=== PATIENT | female | born 1980 | race Caucasian/White ===

== ENCOUNTER 2024-11-23 16:21 | Emergency (ER) | payer MEDICAID, OTHER ==
[~2024-11-23] VITALS: Ht 172.7 cm; Wt 75.0 kg
[2024-11-23 17:34] LABS: Basophils # (auto) 0 10 ^3/uL (0-0.2); Basophils % (auto) 0.1 % (0.0-2.0); Eosinophils # (auto) 0 10 ^3/uL (0-0.8); Hematocrit 38.4 % (36.0-46.0); Hemoglobin 12.5 g/dL (12.2-16.2); Lymphocytes # (auto) 0.7 10 ^3/uL (0.4-5.4); Lymphocytes % (auto) 2.8 % (10.0-50.0); Mean Corpuscular Hemoglobin 30.9 pg (28.0-32.0); Mean Corpuscular Hgb Conc. 32.5 g/dL (32.0-36.0); Mean Corpuscular Volume 95.1 fL (80.0-100.0); Monocytes # (auto) 1.2 10 ^3/uL (0-1.3); Neutrophils # (auto) 21.7 10 ^3/uL (1.6-8.6); Neutrophils % (auto) 92.1 % (37.0-80.0); Platelet Count (auto) 281 10^3/uL (140-450); Red Blood Cells 4.04 10^6/uL (4.0-5.20); Red Cell Distribution Width 12.9 % (11.8-14.3); White Blood Cell 23.5 10^3/uL (4.4-10.8)
[2024-11-23 17:47] LABS: INR 1.02 (0.9-1.15); Partial Thromboplastin Time 29.2 SEC (24.5-34.5); Prothrombin Time 10.8 sec (9.3-11.8)
[2024-11-23 17:57] LABS: Albumin 4.2 g/dL (3.2-4.8); Alkaline Phosphatase 59 U/L (46-116); Anion Gap 10 (5-15); Aspartate Aminotransferase 19 U/L (13-40); BUN/Creatinine Ratio 13.8 (10.0-20.0); Bilirubin, Total 0.5 mg/dL (0.2-1.0); Carbon Dioxide 29 mmol/L (20-31); Chloride 102 mmol/L (98-107); Potassium 3.8 mmol/L (3.5-5.1); Sodium 141 mmol/L (136-145); Total Protein 6.5 g/dL (5.7-8.2)
[2024-11-23 17:58] LABS: Alanine Aminotransferase < 9 U/L (7-40); Blood Urea Nitrogen 57 mg/dL (9-23); Calcium 8.5 mg/dL (8.7-10.4); Glucose 198 mg/dL (74-106)
[2024-11-23] MEDS: SODIUM CHLORIDE 0.9% 500 ML IV ONE (18:22)
[2024-11-23] MEDS: ONDANSETRON HCL 4 MG/2 ML VIAL IV ONE (18:22)
[2024-11-23 18:25] VITALS: PULSE 91; RESP 19; O2SAT 100
--- NOTE | 2024-11-23 20:02 | ED.PDOC ---
History of Present Illness HPI Comments 44-year-old female who comes in with chief complaint of abdominal pain since last night. The patient states that the pain was somewhat epigastric and a 10/10. The patient states that now the pain is a 7/10. The patient denies any fever or diarrhea. The patient was having some vomiting. Patient has been ot her complaints at this time. Chief Complaint: Nausea/Vomiting Time Seen by MD: 16:29 Primary Care Provider: TONI Reviewed Notes: Nurses Notes, Senior Design Engineering Specialist Notes, Medications, Allergies (No allergies to medications) Allergies: Coded Allergies: NO KNOWN ALLERGIES (Unverified , 11/23/24) Home Meds Active Scripts Ondansetron Odt 4MG Tab (ZOFRAN PO) 4 Mg Tb, 4 MG PO BID for 5 Days, #10 TAB ODT TAB-DISSOLVE IN MOUTH, THEN SWALLOW Prov:GOKUL STEWART MD 11/23/24 Nitrofurantoin Monohydrate Mac (Macrobid) 100 Mg Cap, 100 MG PO BID for 7 Days, #14 CAP Prov:GOKUL STEWART MD 11/23/24 Information Source: Patient, Emergency Med Personnel Mode of Arrival: EMS Severity: Moderate Timing: Days Duration: Since onset Prehospital treatment: None Location: Epigastric pain Quality Cramping type pain Past Medical History PAST MEDICAL HISTORY: Denies Surgical History (Other): Eye surgery DITCH CLEANER History: No Pertinent DITCH CLEANER History Family History Family History: Family hx of DM, Family hx of HTN Social History Smoker: Secondhand Alcohol: Denies ETOH Use Drugs: Denies Drug Use Lives In: Home Constitutional: denies: chills, diaphoresis, fatigue, fever, malaise, sweats, weakness, others EENTM: denies: blurred vision, double vision, ear bleeding, ear discharge, ear drainage, ear pain, ear ringing, eye pain, eye redness, hearing loss, mouth pain, mouth swelling, nasal discharge, nose bleeding, nose congestion, nose pain, photophobia, tearing, throat pain, throat swelling, voice changes, others Respiratory: denies: cough, hemoptysis, orthopnea, SOB at rest, shortness of breath, SOB with excertion, stridor, wheezing, others Cardiovascular: denies: chest pain, dizzy spells, diaphoresis, Dyspnea on exertion, edema, irregular heart beat, left arm pain, lightheadedness, palpitations, PND, syncope, others Gastrointestinal: reports: abdominal pain; denies: abdomen distended, blood streaked bowels, constipated, diarrhea, dysphagia, difficulty swallowing, hematemesis, melena, nausea, poor appetite, poor fluid intake, rectal bleeding, rectal pain, vomiting, others Genitourinary: denies: abnormal vagina bleeding, burning, dyspareunia, dysuria, flank pain, frequency, hematuria, incontinence, pain, , vagina discharge, urgency, others Neurological: denies: dizziness, fainting, headache, left sided numbness, left sided weakness, numbness, paresthesia, pre-existing deficit, right sided numbness, right sided weakness, seizure, speech problems, tingling, tremors, weakness, others Musculoskeletal: denies: back pain, gout, joint pain, joint swelling, muscle pain, muscle stiffness, neck pain, others Integumetry: denies: bruises, change in color, change in hair/nails, dryness, laceration, lesions, lumps, rash, wounds, others Allergic/Immunocompromised: denies: Difficulty Healing, Frequent Infections, Hives, Itching, others Hematologic/Lymphatic: denies: anemia, blood clots, easy bleeding, easy bruising, swollen glands, others Endocrine: denies: excessive hunger, excessive sweating, excessive thirst, excessive urination, flushing, intolerance to cold, intolerance to heat, unexplained weight gain, unexplained weight loss, others Psychiatric: denies: anxiety, bipolar disorder, depression, hopeless, panic disorder, schizophrenia, sleepless, suicidal, others Physical Exam General Appearance: No Apparent Distress HEENT: Normal ENT Inspection, Pharynx Normal, TMs Normal Neck: Full Range of Motion, Non-Tender, Normal, Normal Inspection Respiratory: Chest Non-Tender, Lungs Clear, No Accessory Muscle Use, No Respira tory Distress, Normal Breath Sounds Cardiovascular: No Edema, No JVD, No Murmur, No Gallop, Normal Peripheral Pulses, Regular Rate/Rhythm Breast Exam: Deferred Gastrointestinal: Epigastric, No Organomegaly, No Pulsatile Mass, Normal Bowel Sounds, Soft, Tenderness Genitalia: Deferred Pelvic: Deferred Rectal: Deferred Extremities: No calf tenderness, Normal capillary refill, Normal inspection, Normal range of motion, Non-tender, No pedal edema Musculoskeletal : Apperance: Normal Neurologic: Alert, gamemaster II-XII nml as Tested, No Motor Deficits, Normal Affect, Normal Mood, No Sensory Deficits Cerebellar Function: Normal Reflexes: Normal Skin: Dry, Normal Color, Warm Lymphatic: No Adenopathy Was a procedure done? Was a procedure done?: No Differential Dx Considerations may include: Gastritis, generalized weakness, electrolyte imbalance X-Ray, Labs, Meds, VS Vital Signs Date Time Temp Pulse Resp B/P (MAP) Pulse Ox O2 Delivery O2 Flow Rate FiO2 11/23/24 18:25 97.8 91 19 163/93 (116) 100 97.8 11/23/24 18:25 91 19 100 Room Air* 0 21 11/23/24 16:43 87 11/23/24 16:43 98.8 102 16 109/69 (82) 96 Lab Test 11/23/24 20:11 11/23/24 17:06 Range/Units Urine Color Yellow Yellow Urine Clarity Clear Clear Urine pH 6.0 5.0-9.0 Urine Specific [place] 1.024 1.001-1.035 Urine Protein 3+ H Negative Urine Ketones Negative Negative Urine Blood 2+ H Negative /uL Urine Nitrite Negative Negative Urine Bilirubin Negative Negative Urine Urobilinogen Normal Negative mg/dL Urine Leukocyte Esterase Negative Negative /uL Urine RBC 5 0 - 4 /hpf Urine Microscopic WBC 7 H 0-5 /HPF Urine Squamous Epithelial Cells Few <5 /hpf Urine Bacteria None seen None Seen /hpf Urine Hyaline Casts Few 0 - 2 /lpf Urine Mucus Few None Seen Urine Glucose 1+ H Normal mg/dL White Blood Count 23.5 H 4.4-10.8 10^3/uL Red Blood Count 4.04 4.0-5.20 10^6/uL Hemoglobin 12.5 12.2-16.2 g/dL Hematocrit 38.4 36.0-46.0 % Mean Corpuscular Volume 95.1 80.0-100.0 fL Mean Corpuscular Hemoglobin 30.9 28.0-32.0 pg Mean Corpuscular Hemoglobin Concent 32.5 32.0-36.0 g/dL Red Cell Distribution Width 12.9 11.8-14.3 % Platelet Count 281 140-450 10^3/uL Mean Platelet Volume 8.6 6.9-10.8 fL Neutrophils (%) (Auto) 92.1 H 37.0-80.0 % Lymphocytes (%) (Auto) 2.8 L 10.0-50.0 % Monocytes (%) (Auto) 5.0 0.0-12.0 % Eosinophils (%) (Auto) 0.0 0.0-7.0 % Basophils (%) (Auto) 0.1 0.0-2.0 % Neutrophils # (Auto) 21.7 H 1.6-8.6 10 ^3/uL Lymphocytes # (Auto) 0.7 0.4-5.4 10 ^3/uL Monocytes # (Auto) 1.2 0-1.3 10 ^3/uL Eosinophils # (Auto) 0 0-0.8 10 ^3/uL Basophils # (Auto) 0 0-0.2 10 ^3/uL Nucleated Red Blood Cells 0.0 % Prothrombin Time 10.8 9.3-11.8 sec Prothrombin Time INR 1.02 0.9-1.15 Activated Partial Thromboplast Time 29.2 24.5-34.5 SEC Sodium Level 141 136-145 mmol/L Potassium Level 3.8 3.5-5.1 mmol/L Chloride Level 102 98-107 mmol/L Carbon Dioxide Level 29 20-31 mmol/L Anion Gap 10 5-15 Blood Urea Nitrogen 57 H 9-23 mg/dL Creatinine 4.12 H 0.550-1.02 mg/dL Glomerular Filtration Rate Calc 13 >90 mL/min BUN/Creatinine Ratio 13.8 10.0-20.0 Serum Glucose 198 H 74-106 mg/dL Calcium Level 8.5 L 8.7-10.4 mg/dL Total Bilirubin 0.5 0.2-1.0 mg/dL Aspartate Amino Transferase (AST) 19 13-40 U/L Alanine Aminotransferase (ALT) < 9 7-40 U/L Alkaline Phosphatase 59 46-116 U/L Total Protein 6.5 5.7-8.2 g/dL Albumin 4.2 3.2-4.8 g/dL Current Medications Medications (Trade) Dose Ordered Sig/Eileen Route Start Time Stop Time Status Last Admin Sodium Chloride 500 ml @ 500 mls/hr Q1H ONCE IV 11/23/24 16:45 11/23/24 17:44 DC 11/23/24 18:22 Ondansetron HCl (Zofran) 4 mg ONCE ONCE IV 11/23/24 18:30 11/23/24 18:31 DC 11/23/24 18:22 IV Hep-Lock was established The patient was given Zofran 4 mg IV push The patient was given normal saline at a 500 cc bolus The patient was CBC shows an elevated white blood cell count of 23.5 the patient was blood pressure The rest of the labs are within normal limits. Images Reviewed?: Images reviewed and evaluated by me Time of 1ST Reevaluation: 20:01 Reevaluation 1ST: Improved Patient Education/Counseling: Diagnosis, Treatment, Prognosis, Need For Follow Up Family Education/Counseling: No Family Present Departure 1 Departure Time of Disposition: 20:02 Impression: Primary Impression: UTI (urinary tract infection) Qualified Codes: N30.00 - Acute cystitis without hematuria Additional Impression: Vomiting Qualified Codes: R11.14 - Bilious vomiting Disposition: 01 HOME / SELF CARE / HOMELESS Condition: Fair e-Prescriptions Ondansetron Odt 4MG Tab (ZOFRAN PO) 4 Mg Tb 4 MG PO BID for 5 Days, #10 TAB ODT TAB-DISSOLVE IN MOUTH, THEN SWALLOW Prov: GOKUL STEWART MD 11/23/24 Nitrofurantoin Monohydrate Mac (Macrobid) 100 Mg Cap 100 MG PO BID for 7 Days, #14 CAP Prov: GOKUL STEWART MD 11/23/24 Discharged With: Self Critical Care Note Critical Care Time?: No Stability Stability form required: No Heart Score Heart Score: Heart Score Response (Comments) Value History N/A 0 EKG N/A 0 Age N/A 0 Risk Factors N/A 0 Troponin N/A 0 Total 0 GOKUL STEWART MD Nov 23, 2024 20:02
[2024-11-23 20:13] LABS: Urine Bacteria None Seen /hpf (None Seen)
[2024-11-23 20:39] LABS: Urine Blood 2+ /uL (Negative); Urine Clarity Clear (Clear); Urine Color Yellow (Yellow); Urine Hyaline Cast FEW /lpf (0 - 2); Urine Mucus FEW (None Seen); Urine Protein, UAD 3+ (Negative); Urine Specific Gravity 1.024 (1.001-1.035); Urine Squamous Epithelial Cell FEW /hpf (<5); Urine Urobilinogen Normal (Negative); Urine WBC 7 /HPF (0-5)
[2024-11-23] MEDS ORDERED: NITR-87 PO (20:43)
[2024-11-23] MEDS ORDERED: ZOFR4T PO (20:44)
[2024-11-23 21:46] VITALS: BP 144/83; PULSE 89; RESP 18; TEMP 98.3; O2SAT 100
--- NOTE | 2024-11-24 08:37 | ECG ---
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
== END 2024-11-23 21:53 | disposition home or self-care (01) ==
LOC: EDBD 16:21 → ER 16:21
DX: N39.0 Urinary tract infection, site not specified (principal); R11.10 Vomiting, unspecified; F17.200 Nicotine dependence, unspecified, uncomplicated; R19.7 Diarrhea, unspecified; R50.9 Fever, unspecified; Z79.899 Other long term (current) drug therapy; Z98.890 Other specified postprocedural states
CPT/HCPCS: 36415; 80053; 81001; 82947; 85025; 85610; 85730; 86850; 86900; 86901; 93005; 96374; 99284; J2405

== ENCOUNTER 2024-11-25 17:00 | Inpatient (IN) | payer MEDICAID ==
[~2024-11-25] VITALS: Ht 167.6 cm; Wt 72.0 kg
[~2024-11-25 17:00] MED LIST: NITR-87 PO; ZOFR4T PO
--- NOTE | 2024-11-25 17:26 | ED.PDOC ---
History of Present Illness HPI Comments 44F BIBA w/ no prior Hx associated to the c/c of CP. Pt was here yesterday on 11/24/24, here is the HPI from yesterday for ABD pain and currently has sternal CP with a pain of 8/10 and an increase w/ palpitation.Pt was given 4 of Zofran via IV en route.Family Hx of Dm and HTN. Denies chills, fever, N/V/D, SOB or other associated symptom's, modifiers, or recent injuries or sick contact at this time. Chief Complaint: Chest Pain Time Seen by MD: 17:05 Primary Care Provider: TONI Reviewed Notes: Nurses Notes, Roll Form Operator Notes, Medications, Allergies Allergies: Coded Allergies: NO KNOWN ALLERGIES (Unverified , 11/23/24) Home Meds Active Scripts Ondansetron Odt 4MG Tab (ZOFRAN PO) 4 Mg Tb, 4 MG PO BID for 5 Days, #10 TAB ODT TAB-DISSOLVE IN MOUTH, THEN SWALLOW Prov:GOKUL STEWART MD 11/23/24 Nitrofurantoin Monohydrate Mac (Macrobid) 100 Mg Cap, 100 MG PO BID for 7 Days, #14 CAP Prov:GOKUL STEWART MD 11/23/24 Information Source: Patient, Emergency Med Personnel Mode of Arrival: EMS Severity: Moderate Timing: Hours Duration: Since onset, Hours Prehospital treatment: None Past Medical History PAST MEDICAL HISTORY: Denies Surgical History: Denies all surgeries COREROOM FOUNDRY LABORER History: No Pertinent COREROOM FOUNDRY LABORER History Family History Family History: Reviewed,noncontributory to illness, Family hx of DM, Family hx of HTN Social History Smoker: Non-Smoker Alcohol: Denies ETOH Use Drugs: Denies Drug Use Lives In: Home Constitutional: denies: chills, diaphoresis, fatigue, fever, malaise, sweats, weakness, others EENTM: denies: blurred vision, double vision, ear bleeding, ear discharge, ear drainage, ear pain, ear ringing, eye pain, eye redness, hearing loss, mouth pain, mouth swelling, nasal discharge, nose bleeding, nose congestion, nose pain, photophobia, tearing, throat pain, throat swelling, voice changes, others Respiratory: denies: cough, hemoptysis, orthopnea, SOB at rest, shortness of breath, SOB with excertion, stridor, wheezing, others Cardiovascular: reports: chest pain; denies: dizzy spells, diaphoresis, Dyspnea on exertion, edema, irregular heart beat, left arm pain, lightheadedness, palpitations, PND, syncope, others Gastrointestinal: denies: abdomen distended, abdominal pain, blood streaked bowels, constipated, diarrhea, dysphagia, difficulty swallowing, hematemesis, melena, nausea, poor appetite, poor fluid intake, rectal bleeding, rectal pain, vomiting, others Genitourinary: denies: abnormal vagina bleeding, burning, dyspareunia, dysuria, flank pain, frequency, hematuria, incontinence, pain, , vagina discharge, urgency, others Neurological: denies: dizziness, fainting, headache, left sided numbness, left sided weakness, numbness, paresthesia, pre-existing deficit, right sided numbness, right sided weakness, seizure, speech problems, tingling, tremors, weakness, others Musculoskeletal: denies: back pain, gout, joint pain, joint swelling, muscle pain, muscle stiffness, neck pain, others Integumetry: denies: bruises, change in color, change in hair/nails, dryness, laceration, lesions, lumps, rash, wounds, others Allergic/Immunocompromised: denies: Difficulty Healing, Frequent Infections, Hives, Itching, others Hematologic/Lymphatic: denies: anemia, blood clots, easy bleeding, easy bruising, swollen glands, others Endocrine: denies: excessive hunger, excessive sweating, excessive thirst, excessive urination, flushing, intolerance to cold, intolerance to heat, unexplained weight gain, unexplained weight loss, others Psychiatric: denies: anxiety, bipolar disorder, depression, hopeless, panic disorder, schizophrenia, sleepless, suicidal, others All Other Systems: Reviewed and Negative Physical Exam General Appearance: Moderate Distress HEENT: Normal ENT Inspection, Pharynx Normal, TMs Normal Neck: Full Range of Motion, Non-Tender, Normal, Normal Inspection Respiratory: Chest Non-Tender, Lungs Clear, No Accessory Muscle Use, No Respiratory Distress, Normal Breath Sounds Cardiovascular: No Edema, No JVD, No Murmur, No Gallop, Normal Peripheral Pulses, Regular Rate/Rhythm Breast Exam: Deferred Gastrointestinal: No Organomegaly, Non Tender, No Pulsatile Mass, Normal Bowel Sounds, Soft Genitalia: Deferred Pelvic: Deferred Rectal: Deferred Extremities: No calf tenderness, Normal capillary refill, Normal inspection, Normal range of motion, Non-tender, No pedal edema Musculoskeletal : Apperance: Normal Neurologic: Alert, clay artisan II-XII nml as Tested, Motor Weakness, Normal Affect, Normal Mood, No Sensory Deficits Cerebellar Function: Normal Reflexes: Normal Skin: Dry, Normal Color, Warm Lymphatic: No Adenopathy Was a procedure done? Was a procedure done?: No EKG EKG : Pulse Rate (adult): 92 [place]: Normal Cardiac Rhythm: NSR Block: None Hypertrophy: None ST: Normal Differential Dx Considerations may include: PE, ACS, VT X-Ray, Labs, Meds, VS Vital Signs Date Time Temp Pulse Resp B/P (MAP) Pulse Ox O2 Delivery O2 Flow Rate FiO2 11/25/24 20:06 176/92 11/25/24 19:54 91 12 100 Nasal Cannula* 2 11/25/24 19:52 97.8 94 12 189/94 (125) 100 97.8 11/25/24 17:27 92 11/25/24 17:10 98.3 106 18 133/79 (97) 100 11/25/24 17:09 92 Lab Test 11/25/24 17:24 Range/Units White Blood Count 15.2 #H 4.4-10.8 10^3/uL Red Blood Count 4.34 4.0-5.20 10^6/uL Hemoglobin 14.0 12.2-16.2 g/dL Hematocrit 40.3 36.0-46.0 % Mean Corpuscular Volume 92.8 80.0-100.0 fL Mean Corpuscular Hemoglobin 32.3 H 28.0-32.0 pg Mean Corpuscular Hemoglobin Concent 34.8 32.0-36.0 g/dL Red Cell Distribution Width 12.4 11.8-14.3 % Platelet Count 339 140-450 10^3/uL Mean Platelet Volume 8.8 6.9-10.8 fL Neutrophils (%) (Auto) 85.4 H 37.0-80.0 % Lymphocytes (%) (Auto) 6.4 L 10.0-50.0 % Monocytes (%) (Auto) 8.0 0.0-12.0 % Eosinophils (%) (Auto) 0.1 0.0-7.0 % Basophils (%) (Auto) 0.1 0.0-2.0 % Neutrophils # (Auto) 13.0 H 1.6-8.6 10 ^3/uL Lymphocytes # (Auto) 1.0 0.4-5.4 10 ^3/uL Monocytes # (Auto) 1.2 0-1.3 10 ^3/uL Eosinophils # (Auto) 0 0-0.8 10 ^3/uL Basophils # (Auto) 0 0-0.2 10 ^3/uL Nucleated Red Blood Cells 0.0 % Prothrombin Time 10.9 9.3-11.8 sec Prothrombin Time INR 1.03 0.9-1.15 Activated Partial Thromboplast Time 27.1 24.5-34.5 SEC D-Dimer, Quantitative 8.50 H 0.0-0.49 mg/L FEU Sodium Level 133 #L 136-145 mmol/L Potassium Level 2.6 L 3.5-5.1 mmol/L Chloride Level 84 #L 98-107 mmol/L Carbon Dioxide Level 33 H 20-31 mmol/L Anion Gap 16 H 5-15 Blood Urea Nitrogen 48 H 9-23 mg/dL Creatinine 4.03 H 0.550-1.02 mg/dL Glomerular Filtration Rate Calc 13 >90 mL/min BUN/Creatinine Ratio 11.9 10.0-20.0 Serum Glucose 247 H 74-106 mg/dL Calcium Level 8.8 8.7-10.4 mg/dL Troponin I High Sensitivity 15 </=34 ng/L Current Medications Medications (Trade) Dose Ordered Sig/Eileen Route Start Time Stop Time Status Last Admin Aspirin 162 mg ONCE ONCE PO 11/25/24 17:15 11/25/24 17:16 DC 11/25/24 18:41 Pantoprazole Sodium (Protonix) 40 mg ONCE ONCE IV 11/25/24 18:15 11/25/24 18:16 DC 11/25/24 18:21 Prochlorperazine Edisylate (Compazine Inj) 10 mg ONCE ONCE IV 11/25/24 18:15 11/25/24 18:16 DC 11/25/24 18:21 Heparin Sodium (Porcine) 3,000 units ONCE ONCE IV 11/25/24 18:30 11/25/24 18:31 DC 11/25/24 18:42 Heparin Sodium/ Dextrose 250 ml @ 12 mls/hr [id number] IV 11/25/24 18:30 11/25/24 20:47 DC 11/25/24 18:56 Sodium Chloride 1,000 ml @ 60 mls/hr [id number] IV 11/25/24 19:15 11/25/24 20:00 Clonidine HCl (Catapres Tablet) 0.2 mg ONCE ONCE PO 11/25/24 20:15 11/25/24 20:16 DC 11/25/24 20:06 Potassium Chloride 100 ml @ 50 mls/hr ONCE ONCE IV 11/25/24 20:15 11/25/24 22:14 11/25/24 20:24 The patient is being taken over the CT scan to rule out PE. The patient was become hypoxic at least two episodes We are concerned that the patient does have a PE We did start the patient on heparin. We contacted the windows laptop technician who would be able to do a thrombectomy but at this time the risks versus the benefits are such that the patient would need this procedure Creatinine is 4.12 but we still need this CT scan of the chest to be done At this time the CT scan of the chest is negative for PE. The patient was given Protonix 40 mg IV push The patient was given Compazine 10 mg IV push for the nausea and vomiting The patient was somewhat hypertensive so was given clonidine We are still trying to workup the patient's elevated D-dimer The patient's anion gap is somewhat elevated at 16 The CO2 is elevated at 33 The patient was being admitted at this time Images Reviewed?: Images reviewed and evaluated by me Time of 1ST Reevaluation: 17:35 Reevaluation 1ST: Unchanged Patient Education/Counseling: Diagnosis, Treatment, Prognosis Family Education/Counseling: No Family Present Departure 1 Departure Time of Disposition: 20:59 Impression: Primary Impression: Acute respiratory failure Qualified Codes: J96.01 - Acute respiratory failure with hypoxia Additional Impressions: Acute chest pain Elevated d-dimer Hypertensive urgency Disposition: 09 ADMITTED INPATIENT Admit to: Tele Condition: Fair Critical Care Note Critical Care Time?: Yes (35 min-critical care time only) Stability Stability form required: Yes Unstable for transfer: Telemetry monitoring (Telemetry monitoring required), ED Physician Assesment (Clinical assesment) Heart Score Heart Score: Heart Score Response (Comments) Value History Slightly Suspicious 0 EKG Normal 0 Age <45 0 Risk Factors 1 or 2 risk factors 1 Troponin Normal limit 0 Total 1 I personally scribed for GOKUL STEWART MD ([facility]) on 11/25/24 at 17:26. Electronically submitted by Don Blankenship ([employer]). I personally scribed for GOKUL STEWART MD ([facility]) on 11/25/24 at 17:27. Electronically submitted by Don Blankenship ([employer]). GOKUL STEWART MD Nov 25, 2024 17:26
[2024-11-25] MEDS: PANTOPRAZOLE 40 MG/10 ML VIAL INJ IV ONE (18:21)
[2024-11-25] MEDS: PROCHLORPERAZINE EDISYLATE 5 MG/ML 2ML VIAL IV ONE (18:21)
[2024-11-25] MEDS: ASPirin 81 mg TAB PO ONE (18:41)
[2024-11-25] MEDS: HEPARIN SODIUM (PORCINE) 5000 UNITS/ML 1ML VIAL IV ONE (18:42)
[2024-11-25] MEDS: HEPARIN DRIP/D5W 100UNITS/ML 250 ML IV SCH (18:56)
[2024-11-25] MEDS ORDERED: ACETAMINOPHEN 325 MG TAB PO PRN (19:15)
--- NOTE | 2024-11-25 19:32 | DVH ---
EXAM: US BILAT LOWER DVT Clinical History: Elevated D-dimer with possible DVT Comparison: None Technique: Duplex Doppler evaluation of the deep venous systems of both lower extremities from the common femora l veins to the popliteal veins including color Doppler and spectral/pulsed waveform analysis was perf ormed. Findings: No visible intraluminal venous thrombus. No evidence of incompressibility or abnormal color or spectr al Doppler flow visualized in the deep bilateral lower extremity veins. Proximal greater saphenous ve ins are grossly unremarkable. Impression: 1. No sonographic evidence of deep venous thrombosis throughout the bilateral lower extremities from the popliteal veins to the common femoral veins.
[2024-11-25 19:49] LABS: Anion Gap 16 (5-15); Calcium 8.8 mg/dL (8.7-10.4)
[2024-11-25 19:52] LABS: Basophils # (auto) 0 10 ^3/uL (0-0.2); Basophils % (auto) 0.1 % (0.0-2.0); Eosinophils # (auto) 0 10 ^3/uL (0-0.8); Eosinophils % (auto) 0.1 % (0.0-7.0); Hematocrit 40.3 % (36.0-46.0); Lymphocytes % (auto) 6.4 % (10.0-50.0); Mean Corpuscular Hemoglobin 32.3 pg (28.0-32.0); Mean Corpuscular Hgb Conc. 34.8 g/dL (32.0-36.0); Mean Corpuscular Volume 92.8 fL (80.0-100.0); Monocytes # (auto) 1.2 10 ^3/uL (0-1.3); Neutrophils % (auto) 85.4 % (37.0-80.0); Platelet Count (auto) 339 10^3/uL (140-450); Red Blood Cells 4.34 10^6/uL (4.0-5.20); Red Cell Distribution Width 12.4 % (11.8-14.3); White Blood Cell 15.2 10^3/uL (4.4-10.8)
[2024-11-25 19:54] VITALS: PULSE 91; RESP 12; O2SAT 100
[2024-11-25 19:54] LABS: BUN/Creatinine Ratio 11.9 (10.0-20.0); INR 1.03 (0.9-1.15); Partial Thromboplastin Time 27.1 SEC (24.5-34.5); Prothrombin Time 10.9 sec (9.3-11.8)
[2024-11-25] MEDS: IOHEXOL 350 MG/ML 100ML IJ ONE (19:58)
[2024-11-25 19:59] LABS: Blood Urea Nitrogen 48 mg/dL (9-23); Carbon Dioxide 33 mmol/L (20-31); Chloride 84 mmol/L (98-107); Glucose 247 mg/dL (74-106); Potassium 2.6 mmol/L (3.5-5.1); Sodium 133 mmol/L (136-145)
[2024-11-25] MEDS: SODIUM CHLORIDE 0.9% 1,000 ML IV SCH (20:00)
--- NOTE | 2024-11-25 20:04 | ECG ---
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
--- NOTE | 2024-11-25 20:05 | DVH ---
Procedure: CT CT ANGIO CHEST CONTRAST Reason for study/Clinical History: Shortness a breath and chest pain Comparison Study: None available at time of dictation. Exam Date: 11/25/2024 07:37 PM Radiation Dose Information: CT Dose: CTDI volume is 22.02 mGy. Dose-length product is 817.52 mGy*cm Contrast: Type of contrast: Omnipaque 350 Contrast inject: 60 mL Contrast wasted:0 TECHNIQUE: After the uneventful administration of intravenous contrast intravenously, CT imaging was performed through the chest. Coronal and sagittal reformations were performed by the technologist. No 3D reconstructions or MIP images created. FINDINGS: Lower Neck: Visualized portions of the thyroid gland are unremarkable. Aorta and Vasculature: Normal caliber of thoracic aorta. Lymph Nodes: No enlarged intrathoracic lymph nodes. Mediastinum: Heart size is normal. There is no pericardial effusion. The esophagus is unremarkable. Lungs: No focal consolidation, pleural effusion or significant pneumothorax. No suspicious pulmonary nodule or mass. Musculoskeletal: No acute osseous abnormality. Upper abdomen: Limited portions of the upper abdomen are unremarkable. IMPRESSION: 1. No findings to suggest pulmonary emboli or pulmonary artery hypertension. 2. No pulmonary infiltrates or pleural effusions. 3. All CT scans at this medical facility are performed using dose modulation techniques as appropriate to a performed exam including the following: Automated exposure control was utilized; adjustment of t he MA and/or KV according to patient size; and use of iterative reconstruction technique. HS:Y
[2024-11-25] MEDS: cloNIDine HCL 0.1 MG TAB PO ONE (20:06)
[2024-11-25] MEDS: POTASSIUM CHL 20MEQ/100ML 100 ML IV ONE (20:24)
[2024-11-25] MEDS ORDERED: DEXTROSE (50%) 50ML SYRG IV PRN (21:30)
[2024-11-25] MEDS ORDERED: NITROGLYCERIN 0.4 MG SL TAB SL PRN (21:30)
[2024-11-25] MEDS ORDERED: MORPHINE SULFATE INJ 2 MG/ml SYRG IV PRN (21:30)
--- NOTE | 2024-11-25 21:30 | DVHHP2 ---
History of Present Illness Reason for Visit: Acute chest pain History of Present Illness The patient is a 44-year-old female with past medical history of hypertension, DM, and hyperlipidemia who presented to [facility] ED with complaint of chest pain. Patient reports symptoms progressively get worse with substernal chest pain, rating 8/10 numeric scale, associated palpitations, getting worse that prompted this visit. Patient was seen and evaluated in the ED, laboratory data shows WBC 15.2, platelets 339, sodium 133, potassium 2.6, BUN 48, creatinine 4.03, GFR 13, glucose 247, anion gap 16, troponin 15, D-dimer 8.50, blood pressure 133/79, heart rate 92, temperature 98.3 F, O2 saturation 99% on oxygen. CT Angiography showed no pulmonary emboli, pulmonary artery hypertension, no pulmonary infiltrates or pleural effusions. Please see medication orders section in the computer. On my assessment, patient denied chest pain at this moment, no headache, no dizziness, no nausea, no vomiting, no fever, no chills. No other modifying factor or other associated signs and symptoms noted. The patient was admitted to the hospital for further evaluation and medical management. Past Medical History HLD, DM, hypertension Past Surgical History Denies all surgeries Family History Reviewed, noncontributory to the management of this case. Past Social History The patient lives at home, denies smoking, alcohol or illicit drugs abuse. Review of Systems Constitutional: Yes: Weakness; No: Fever, Chills, Sweats, Malaise, Other Eyes: No: Pain, Vision change, Conjunctivae inflammation, Eyelid inflammation, Other, Redness ENT: No: Ear pain, Ear discharge, Nose pain, Nose discharge, Nose congestion, Mouth pain, Mouth swelling, Throat pain, Throat swelling, Other Respiratory: Shortness of breath; No: Cough, Dry, SOB with excertion, Wheezing, Hemoptysis, Pleuritic Pain, Sputum, Wheezing, Other Cardiovascular: Chest Pain; No: Palpitations, Orthopnea, Paroxysmal Noc. Dyspnea, Edema, Lt Headedness, Other Gastrointestinal: No: Nausea, Vomiting, Abdominal Pain, Diarrhea, Constipation, Melena, Hematochezia, Other Genitourinary: No Dysuria, No Frequency, No Incontinence, No Hematuria, No Retention, No Other Musculoskeletal: No: other, neck pain, shoulder pain, arm pain, back pain, hand pain, leg pain, foot pain Skin: No: Rash, Lesions, Jaundice, Bruising, Other Neurological: No: Weakness, Numbness, Incoordination, Change in speech, Confusion, Seizures, Other Allergies: Coded Allergies: NO KNOWN ALLERGIES (Unverified , 11/23/24) Medications Current Medications Medications Dose Ordered Sig/Eileen Route Start Time Stop Time Status Last Admin Dose Admin Pantoprazole Sodium 40 mg DAILY IV 11/26/24 10:00 Sodium Chloride 1,000 ml @ 60 mls/hr [id number] IV 11/25/24 19:15 11/25/24 20:00 60 MLS/HR Acetaminophen/ Hydrocodone Bitart 1 tab Q4HP PRN PO 11/25/24 19:15 Ondansetron HCl 4 mg Q4HP PRN IV 11/25/24 19:15 Docusate Sodium 100 mg BIDPRN PRN PO 11/25/24 19:15 Acetaminophen 650 mg Q6HP PRN PO 11/25/24 19:15 Aspirin 81 mg DAILY PO 11/26/24 10:00 UNV Ceftriaxone Sodium 50 ml @ 100 mls/hr DAILY@09 IV 11/26/24 09:00 UNV Hydralazine HCl 10 mg Q6HP PRN IV 11/25/24 21:30 UNV Diagnostic Test (Pha) 1 strip IQ4HR 11/26/24 00:00 UNV Insulin Human Regular IQ4HR SC 11/26/24 00:00 UNV Dextrose 50 ml UD PRN IV 11/25/24 21:30 UNV Exam Vital Signs Vital Signs Date Time Temp Pulse Resp B/P (MAP) Pulse Ox O2 Delivery O2 Flow Rate FiO2 11/25/24 21:10 111/73 11/25/24 20:30 95 22 100 11/25/24 19:54 Nasal Cannula* 2 11/25/24 19:52 97.8 97.8 General Appearance: Alert, Oriented X3, Cooperative, No acute distress HEENT: Atraumatic, PERRLA, EOMI, Mucous membr. moist/pink Respiratory: Clear to auscultation, Normal air movement Cardiovascular: Regular rate, Normal S1, Normal S2, No murmurs Abdominal: Normal bowel sounds, Soft, No tenderness, No hepatospenomegaly, No masses Extremities: No clubbing, No cyanosis, No edema, Normal pulses, No tenderness/swelling Skin: No rashes, No breakdown, No significant lesion Neuro: Normal speech, Normal tone, Sensation intact, Cranial nerves 3-12 NL, Reflexes 2+, Other (Generalized weakness) Psych/Mental Status: Mental status NL, Mood NL Labs/Xrays Labs Test 11/25/24 17:24 Range/Units White Blood Count 15.2 #H 4.4-10.8 10^3/uL Red Blood Count 4.34 4.0-5.20 10^6/uL Hemoglobin 14.0 12.2-16.2 g/dL Hematocrit 40.3 36.0-46.0 % Mean Corpuscular Volume 92.8 80.0-100.0 fL Mean Corpuscular Hemoglobin 32.3 H 28.0-32.0 pg Mean Corpuscular Hemoglobin Concent 34.8 32.0-36.0 g/dL Red Cell Distribution Width 12.4 11.8-14.3 % Platelet Count 339 140-450 10^3/uL Mean Platelet Volume 8.8 6.9-10.8 fL Neutrophils (%) (Auto) 85.4 H 37.0-80.0 % Lymphocytes (%) (Auto) 6.4 L 10.0-50.0 % Monocytes (%) (Auto) 8.0 0.0-12.0 % Eosinophils (%) (Auto) 0.1 0.0-7.0 % Basophils (%) (Auto) 0.1 0.0-2.0 % Neutrophils # (Auto) 13.0 H 1.6-8.6 10 ^3/uL Lymphocytes # (Auto) 1.0 0.4-5.4 10 ^3/uL Monocytes # (Auto) 1.2 0-1.3 10 ^3/uL Eosinophils # (Auto) 0 0-0.8 10 ^3/uL Basophils # (Auto) 0 0-0.2 10 ^3/uL Nucleated Red Blood Cells 0.0 % Prothrombin Time 10.9 9.3-11.8 sec Prothrombin Time INR 1.03 0.9-1.15 Activated Partial Thromboplast Time 27.1 24.5-34.5 SEC D-Dimer, Quantitative 8.50 H 0.0-0.49 mg/L FEU Sodium Level 133 #L 136-145 mmol/L Potassium Level 2.6 L 3.5-5.1 mmol/L Chloride Level 84 #L 98-107 mmol/L Carbon Dioxide Level 33 H 20-31 mmol/L Anion Gap 16 H 5-15 Blood Urea Nitrogen 48 H 9-23 mg/dL Creatinine 4.03 H 0.550-1.02 mg/dL Glomerular Filtration Rate Calc 13 >90 mL/min BUN/Creatinine Ratio 11.9 10.0-20.0 Serum Glucose 247 H 74-106 mg/dL Hemoglobin A1c 6.1 H <5.7 % A1C Calcium Level 8.8 8.7-10.4 mg/dL Troponin I High Sensitivity 15 </=34 ng/L PATIENT: NEIL LEA DACCT: [id number] UNIT: [id number] : 1980 LOC: ER ROOM / BED: / AGE / SEX: 44 / F ADM STATUS: REG ER SERVICE 55 ORDERING PHYSICIAN: GOKUL STEWART MD PROCEDURE(s): CTACH - CT ANGIO CHEST CONTRAST REASON: Shortness a breath and chest pain ORDER NUMBER(s): [id number], ACCESSION NUMBER(s): [id number] Procedure: CT CT ANGIO CHEST CONTRAST Reason for study/Clinical History: Shortness a breath and chest pain Comparison Study: None available at time of dictation. Exam Date: 11/25/2024 07:37 PM Radiation Dose Information: CT Dose: CTDI volume is 22.02 mGy. Dose-length product is 817.52 mGy*cm Contrast: Type of contrast: Omnipaque 350 Contrast inject: 60 mL Contrast wasted:0 TECHNIQUE: After the uneventful administration of intravenous contrast intravenously, CT imaging was performed through the chest. Coronal and sagittal reformations were performed by the technologist. No 3D reconstructions or MIP images created. FINDINGS: Lower Neck: Visualized portions of the thyroid gland are unremarkable. Aorta and Vasculature: Normal caliber of thoracic aorta. Lymph Nodes: No enlarged intrathoracic lymph nodes. Mediastinum: Heart size is normal. There is no pericardial effusion. The esophagus is unremarkable. Lungs: No focal consolidation, pleural effusion or significant pneumothorax. No suspicious pulmonary nodule or mass. Musculoskeletal: No acute osseous abnormality. Upper abdomen: Limited portions of the upper abdomen are unremarkable. IMPRESSION: 1. No findings to suggest pulmonary emboli or pulmonary artery hypertension. 2. No pulmonary infiltrates or pleural effusions. ORDERING PHYSICIAN: GOKUL STEWART MD PROCEDURE(s): BLDVT - BiLat Lower DVT REASON: Elevated D-dimer with possible DVT ORDER NUMBER(s): [id number], ACCESSION NUMBER(s): [id number] EXAM: US BILAT LOWER DVT Clinical History: Elevated D-dimer with possible DVT Comparison: None Technique: Duplex Doppler evaluation of the deep venous systems of both lower extremities from the common femoral veins to the popliteal veins including color Doppler and spectral/pulsed waveform analysis was performed. Findings: No visible intraluminal venous thrombus. No evidence of incompressibility or abnormal color or spectral Doppler flow visualized in the deep bilateral lower extremity veins. Proximal greater saphenous veins are grossly unremarkable. Impression: 1. No sonographic evidence of deep venous thrombosis throughout the bilateral lower extremities from the popliteal veins to the common femoral veins. ORDERING PHYSICIAN: SANFORD CHAVEZ MD PROCEDURE(s): KIDUS - KIDNEY REASON: KATE ORDER NUMBER(s): [id number], ACCESSION NUMBER(s): [id number] INDICATION: KATE TECHNIQUE: Multiple real-time sonographic images of the kidneys and bladder were obtained. COMPARISON: None FINDINGS: The right kidney measures 9.5 cm in length and the left kidney 9.8 cm. Both kidneys are normal in size, contour and cortical thickness but demonstrate mildly increased cortical echogenicity suggestive of medical renal disease. No hydronephrosis. No evidence of renal mass or calculus. Urinary bladder demonstrates a prevoid volume of 132 mL and appears unremarkable. Incidentally noted is a complex solid-cystic lesion in the right adnexal region measuring up to approximately 7 cm. No free fluid noted. IMPRESSION: Both kidneys are normal in size but demonstrate mildly increased cortical echogenicity suggestive of medical renal disease. No hydronephrosis. Incidentally noted is a complex solid-cystic lesion in right adnexal region measuring up to approximately 7 cm. Assessment/Plan Assessment/Plan Acute chest pain Leukocytosis, unspecified Electrolyte imbalance Elevated D-dimer Acute renal failure Generalized weakness Diabetes mellitus with hyperglycemia Plan 1. Admit to telemetry unit 2. Breathing treatment 3. Pain control management 4. IV antibiotic management 5. Management of fluids and electrolytes 6. Consultation for hospitalist 7. Diagnostic test CT Angiography 8. DVT prophylaxis-on aspirin 9. Repeat labs CBC, CMP in a.m. 10. Home medication reviewed and reconciled 11. Continue with current medical management 12. Treatment plan discussed with patient and RN. Patient verbalized understanding. Plan discussed with: Patient, Other (RN) My Orders Orders - JEREMY FARMER DNP Procedure Category Date Status Time * Cardiology Consult CONS 11/25/24 Transmitted 19:11 Pantoprazole PHA 11/26/24 In Process (Protonix) 10:00 Allergies SCOTTIE 11/25/24 In Process 19:11 Code Status CODE 11/25/24 Transmitted 19:11 Sodium Chloride 0.9% PHA 11/25/24 In Process 19:15 Oxygen Per Hour RT 11/25/24 Transmitted 19:11 Hydrocodone-Acet PHA 11/25/24 In Process 5/325mg Tab ([place] 19:15 Ondansetron Hcl PHA 11/25/24 In Process (Zofran) 19:15 Docusate Sodium PHA 11/25/24 In Process Capsule (Colace 19:15 Complete Blood Count LAB 11/26/24 Verified 04:00 Comprehensive LAB 11/26/24 Verified Metabolic Panel 04:00 Condition: Serious SCOTTIE 11/25/24 In Process 19:11 Acetaminophen Tablet PHA 11/25/24 In Process (Tylenol Tablet) 19:15 Bedrest With Bathroom SCOTTIE 11/25/24 In Process Privileg 19:11 Sequential SCOTTIE 11/25/24 In Process Compression Device Aspirin Tablet PHA 11/26/24 Logged 10:00 *Dr. Audie Larsen CONS 11/25/24 Transmitted -[place] 20:39 Blood Culture ANNA 11/25/24 Logged 20:46 Ceftriaxone 1gm/50ml PHA 11/26/24 Logged D5w (Rocephin) 09:00 Ceftriaxone 1gm/50ml PHA 11/25/24 Logged D5w (Rocephin) 21:00 Consistent DIET 11/26/24 Transmitted Carb(Ccho)Diabetes Breakfast Hydralazine Injection PHA 11/25/24 Logged (Apresoline Inject 21:30 Glucose Blood PHA 11/26/24 Logged (Accu-Chek Comfort 00:00 Insulin R (Human) PHA 11/26/24 Logged (Insulin R) 00:00 Dextrose 50% Syringe PHA 11/25/24 Logged 21:30 Problem List: (1) Acute chest pain (2) Acute renal failure (3) Leukocytosis, unspecified (4) Elevated d-dimer (5) Generalized weakness (6) Electrolyte imbalance (7) Diabetes mellitus with hyperglycemia Date of Service: Nov 25, 2024 Billing Provider: JEREMY FARMER DNP Common Visit Codes: [id number] INP/OBS CARE (HIGH) JEREMY FARMER DNP Nov 25, 2024 21:30
[2024-11-25] MEDS: cefTRIAXone 1GM/50ML D5W 50 ML IV ONE (22:05)
--- NOTE | 2024-11-25 23:42 | DVH ---
INDICATION: KATE TECHNIQUE: Multiple real-time sonographic images of the kidneys and bladder were obtained. COMPARISON: None FINDINGS: The right kidney measures 9.5 cm in length and the left kidney 9.8 cm. Both kidneys are normal in siz e, contour and cortical thickness but demonstrate mildly increased cortical echogenicity suggestive o f medical renal disease. No hydronephrosis. No evidence of renal mass or calculus. Urinary bladder demonstrates a prevoid volume of 132 mL and appears unremarkable. Incidentally noted is a complex solid-cystic lesion in the right adnexal region measuring up to appro ximately 7 cm. No free fluid noted. IMPRESSION: Both kidneys are normal in size but demonstrate mildly increased cortical echogenicity suggestive of medical renal disease. No hydronephrosis. Incidentally noted is a complex solid-cystic lesion in right adnexal region measuring up to approxim ately 7 cm.
[2024-11-26] VITALS (8 sets, daily range): BP systolic 121–131; BP diastolic 71–78; PULSE 63–80; RESP 14–18; TEMP 97.8–98.7; O2SAT 95–100
[2024-11-26] MEDS: ACCU-CHEK COMFORT CURVE STRIP VI SCH (00:10)
[2024-11-26] MEDS: InsuLIN REG 1unit/0.01ml Soln (100units/ml) SC SCH (00:13)
[2024-11-26 02:51] LABS: INR 1.08 (0.9-1.15); Partial Thromboplastin Time 30.1 SEC (24.5-34.5); Prothrombin Time 11.4 sec (9.3-11.8)
[2024-11-26 06:48] LABS: Basophils # (auto) 0 10 ^3/uL (0-0.2); Basophils % (auto) 0.2 % (0.0-2.0); Eosinophils # (auto) 0.1 10 ^3/uL (0-0.8); Eosinophils % (auto) 0.6 % (0.0-7.0); Hematocrit 37.4 % (36.0-46.0); Hemoglobin 12.6 g/dL (12.2-16.2); Lymphocytes # (auto) 1.3 10 ^3/uL (0.4-5.4); Lymphocytes % (auto) 12.5 % (10.0-50.0); Mean Corpuscular Hemoglobin 31.6 pg (28.0-32.0); Mean Corpuscular Hgb Conc. 33.7 g/dL (32.0-36.0); Mean Corpuscular Volume 93.9 fL (80.0-100.0); Monocytes # (auto) 1.2 10 ^3/uL (0-1.3); Monocytes % (auto) 11.3 % (0.0-12.0); Neutrophils % (auto) 75.4 % (37.0-80.0); Platelet Count (auto) 228 10^3/uL (140-450); Red Blood Cells 3.98 10^6/uL (4.0-5.20); Red Cell Distribution Width 12.5 % (11.8-14.3); White Blood Cell 10.6 10^3/uL (4.4-10.8)
[2024-11-26 07:10] LABS: Alanine Aminotransferase 18 U/L (7-40); Albumin 3.7 g/dL (3.2-4.8); Alkaline Phosphatase 49 U/L (46-116); Anion Gap 12 (5-15); Aspartate Aminotransferase 38 U/L (13-40); BUN/Creatinine Ratio 11.6 (10.0-20.0); Total Protein 6.2 g/dL (5.7-8.2)
[2024-11-26 07:11] LABS: Bilirubin, Total 0.3 mg/dL (0.2-1.0)
[2024-11-26 07:12] LABS: Blood Urea Nitrogen 55 mg/dL (9-23); Calcium 7.6 mg/dL (8.7-10.4); Carbon Dioxide 34 mmol/L (20-31); Chloride 89 mmol/L (98-107); Glucose 115 mg/dL (74-106); Potassium 2.8 mmol/L (3.5-5.1); Sodium 135 mmol/L (136-145)
[2024-11-26] MEDS: POTASSIUM CHL 20 Meq TABLET PO ONE (08:34)
[2024-11-26] MEDS: cefTRIAXone 1GM/50ML D5W 50 ML IV SCH (09:09)
[2024-11-26] MEDS: PANTOPRAZOLE 40 MG/10 ML VIAL INJ IV SCH (10:30)
[2024-11-26] MEDS: ASPirin 81 mg TAB PO SCH (10:30)
[2024-11-26] MEDS ORDERED: ASPI-325 (13:25)
[2024-11-26] MEDS ORDERED: SEMA4INJ (13:25)
[2024-11-26] MEDS ORDERED: LISI10TA34 PO (13:25)
[2024-11-26] MEDS ORDERED: SODI650T PO (13:25)
[2024-11-26] MEDS ORDERED: INSLANTI SC (13:25)
[2024-11-26] MEDS ORDERED: ATOR10TA52 (13:25)
--- NOTE | 2024-11-26 14:03 | DVHPN2 ---
Subjective The patient is seen and examined at bedside. The patient is still have chest pain. Reviewed: Care Plan, H&P, Labs, Medications, Previous Orders, Radiology Changes from previous H/P or p: No Changes Eyes: No Pain, No Vision change, No Conjunctivae inflammation, No Eyelid inflammation, No Other, No Redness ENT: No Ear pain, No Ear discharge, No Nose pain, No Nose discharge, No Nose congestion, No Mouth pain, No Mouth swelling, No Throat pain, No Throat swelling, No Other Cardiovascular: Chest Pain; No Palpitations, No Orthopnea, No Paroxysmal Noc. Dyspnea, No Edema, No Lt Headedness, No Other Respiratory: No Cough, No Dry; Shortness of breath; No SOB with excertion, No Wheezing, No Hemoptysis, No Pleuritic Pain, No Sputum, No Other Gastrointestinal: No Nausea, No Vomiting, No Abdominal Pain, No Diarrhea, No Constipation, No Melena, No Hematochezia, No Other Genitourinary: No Dysuria, No Frequency, No Incontinence, No Hematuria, No Retention, No Other Musculoskeletal: No other, No neck pain, No shoulder pain, No arm pain, No back pain, No hand pain, No leg pain, No foot pain Skin: No Rash, No Lesions, No Jaundice, No Bruising, No Other Objective Vitals Vital Signs Date Time Temp Pulse Resp B/P (MAP) Pulse Ox O2 Delivery O2 Flow Rate FiO2 11/26/24 13:09 98.0 79 17 131/77 (95) 95 98.0 11/26/24 10:41 Room Air* 0 21 Intake/Output Intake and Output 11/26/24 07:00 Intake Total 812 ml Balance 812 ml Intake IV Total 812 ml General Appearance: Alert, Oriented X3, Cooperative, No acute distress HEENT: Atraumatic, PERRLA, EOMI, Mucous membr. moist/pink Neck: Supple Lungs: Clear to auscultation, Normal air movement Cardiovascular: Regular rate, Normal S1, Normal S2, No murmurs, Gallops, Rubs Abdomen: Normal bowel sounds, Soft, No tenderness Neuro: Cranial nerves 3-12 NL Psych/Mental Status: Mental status NL Medications Current Medications Medications Dose Ordered Sig/Eileen Route Start Time Stop Time Status Last Admin Dose Admin Pantoprazole Sodium 40 mg DAILY IV 11/26/24 10:00 11/26/24 10:30 40 MG Sodium Chloride 1,000 ml @ 60 mls/hr [id number] IV 11/25/24 19:15 11/26/24 10:32 60 MLS/HR Acetaminophen/ Hydrocodone Bitart 1 tab Q4HP PRN PO 11/25/24 19:15 Ondansetron HCl 4 mg Q4HP PRN IV 11/25/24 19:15 Docusate Sodium 100 mg BIDPRN PRN PO 11/25/24 19:15 Acetaminophen 650 mg Q6HP PRN PO 11/25/24 19:15 Aspirin 81 mg DAILY PO 11/26/24 10:00 11/26/24 10:30 81 MG Ceftriaxone Sodium 50 ml @ 100 mls/hr DAILY@09 IV 11/26/24 09:00 11/26/24 09:09 100 MLS/HR Hydralazine HCl 10 mg Q6HP PRN IV 11/25/24 21:30 Diagnostic Test (Pha) 1 strip IQ4HR 11/26/24 00:00 11/26/24 11:51 1 STRIP Insulin Human Regular IQ4HR SC 11/26/24 00:00 11/26/24 11:52 2 UNITS Dextrose 50 ml UD PRN IV 11/25/24 21:30 Nitroglycerin 0.4 mg Q5MINP PRN SL 11/25/24 21:30 Morphine Sulfate 2 mg Q30M PRN IV 11/25/24 21:30 Laboratory Results Laboratory Tests 11/26/24 06:03 Chemistry Test 11/25/24 17:24 11/26/24 06:03 Calcium Level 8.8 mg/dL (8.7-10.4) 7.6 mg/dL (8.7-10.4) L Albumin 3.7 g/dL (3.2-4.8) Total Protein 6.2 g/dL (5.7-8.2) Coagulation Test 11/25/24 17:24 11/26/24 01:52 Prothrombin Time 10.9 sec (9.3-11.8) 11.4 sec (9.3-11.8) Prothrombin Time INR 1.03 (0.9-1.15) 1.08 (0.9-1.15) Activated Partial Thromboplast Time 27.1 SEC (24.5-34.5) 30.1 SEC (24.5-34.5) D-Dimer, Quantitative 8.50 mg/L FEU (0.0-0.49) H LFT Test 11/26/24 06:03 Alanine Aminotransferase (ALT) 18 U/L (7-40) Alkaline Phosphatase 49 U/L (46-116) Aspartate Amino Transferase (AST) 38 U/L (13-40) Total Bilirubin 0.3 mg/dL (0.2-1.0) HgA1c, TSH Test 11/25/24 17:24 Hemoglobin A1c 6.1 % A1C (<5.7) H Labs and/or images reviewed: Labs reviewed by me Assessment/Plan Assessment/Plan Acute chest pain Leukocytosis, unspecified Electrolyte imbalance Elevated D-dimer Acute renal failure Generalized weakness Diabetes mellitus with hyperglycemia Complex solid-cystic lesion in the right adnexal region measuring up to approximately 7 cm per US. Continuing current management Appreciate nephrology input. Continuing sliding scale insulin. Discussed with the patient regarding to a complex solid cystic lesion of the right adnexa region. The patient will need further workup on this lesion. 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 No further cardiology workup. This medical document was created using an electronic medical record system with [employer] direct computerized dictation system. Although this document has been carefully reviewed, there may still be some phonetic and typographical errors. These areas are purely typographical due to imperfections of the software programs, and do not reflect any compromise in the patient's medical care. Plan discussed with: Patient Date of Service: Nov 26, 2024 Billing Provider: RODRIGO QUINN MD Common Visit Codes: [id number] INP/OBS CARE(HIGH) RODRIGO QUINN MD Nov 26, 2024 14:03
--- NOTE | 2024-11-26 17:54 | DVHINCON2 ---
Date Seen: Nov 26, 2024 Referring Physician JAN David Reason for Consultation Chest pain History of Present Illness This is a 44-year-old female who presented the emergency room with a chief complaint of abdominal pain. The patient complains of mid abdominal pain associated with nausea and persistent bouts of vomiting. She also complains of chest pain after vomiting episodes, burning in nature, and nonradiating. States she was recently diagnosed with a UTI but unable to a take ABX therapy given persistent vomiting. She underwent a 12 lead electrocardiogram revealing a normal sinus rhythm. Baseline troponin level is negative. Significant medical history includes hypertension, [id number] diabetes mellitus, and dyslipidemia. Past Medical History Past medical history reviewed. No other significant than mentioned above. Past Surgical History Family History: Diabetes mellitus G8 FATHER FH: cancer G8 MOTHER Family History Family history reviewed. Social History Denies the use of illicit drugs, alcohol, or tobacco use. Allergies: Coded Allergies: NO KNOWN ALLERGIES (Unverified , 11/23/24) Home Meds Reported Medications Sodium Bicarbonate (Sodium Bicarbonate) 650 Mg Tab, 1 TAB PO BID 11/26/24 Aspirin (Aspirin Low Dose) 81 Mg Tab, 1 DAILY 11/26/24 Lisinopril (Lisinopril) 10 Mg Tab, 1 TAB PO 11/26/24 Atorvastatin Calcium (ATORVASTATIN CALCIUM) 10 Mg Tab, 1 DAILY 11/26/24 Semaglutide (Ozempic) 4 Mg/3 Ml Inj 11/26/24 Insulin Glargine (Lantus) 100 Unit/Ml Inj, SC 11/26/24 Home Meds Home medications reviewed. Current Medications Current Medications Medications (Trade) Dose Ordered Sig/Eileen Route PRN Reason Start Time Stop Time Status Last Admin Heparin Sodium/ Dextrose 250 ml @ 12 mls/hr [id number] IV 11/25/24 18:30 11/25/24 20:47 DC 11/25/24 18:56 Pantoprazole Sodium (Protonix) 40 mg DAILY IV 11/26/24 10:00 11/26/24 10:30 Sodium Chloride 1,000 ml @ 60 mls/hr [id number] IV 11/25/24 19:15 11/26/24 10:32 Acetaminophen/ Hydrocodone Bitart (Clarence 5/325MG Tab) 1 tab Q4HP PRN PO MODERATE PAIN (4-6 PAIN SCALE) 11/25/24 19:15 Ondansetron HCl (Zofran) 4 mg Q4HP PRN IV NAUSEA / VOMITING 11/25/24 19:15 Docusate Sodium (Colace Capsule) 100 mg BIDPRN PRN PO FOR CONSTIPATION 11/25/24 19:15 Acetaminophen (Tylenol Tablet) 650 mg Q6HP PRN PO PAIN SCALE 1-3 OR TEMP>100.4 11/25/24 19:15 Aspirin 81 mg DAILY PO 11/26/24 10:00 11/26/24 10:30 Ceftriaxone Sodium 50 ml @ 100 mls/hr DAILY@09 IV 11/26/24 09:00 11/26/24 09:09 Hydralazine HCl (Apresoline Injection) 10 mg Q6HP PRN IV SBP>150 11/25/24 21:30 Diagnostic Test (Pha) (Accu-Chek Comfort Curve T) 1 strip IQ4HR 11/26/24 00:00 11/26/24 16:00 Insulin Human Regular (InsuLIN R) IQ4HR SC 11/26/24 00:00 11/26/24 17:36 Dextrose 50 ml UD PRN IV Blood Sugar LESS THAN 60 11/25/24 21:30 Nitroglycerin (Ntrostat Sublingual) 0.4 mg Q5MINP PRN SL FOR CHEST PAIN 11/25/24 21:30 Morphine Sulfate 2 mg Q30M PRN IV FOR CHEST PAIN 11/25/24 21:30 Review of Systems Constitutional: No symptom reported Ears, Nose, & Throat: No symptom reported Eyes: No symptom reported Neurological: No symptoms reported Pulmonary/Respiratory: No symptom reported Cardiovascular: No symptom reported Gastrointestinal: Abdominal pain, N/V Genitourinary: No symptom reported Musculoskeletal: No symptom reported Skin: No symptom reported Psychiatric: No symptom reported Endocrine: No symptom reported Hemotologic/Lymphatic: No symptom reported Vital Signs Vital Signs Date Time Temp Pulse Resp B/P (MAP) Pulse Ox O2 Delivery O2 Flow Rate FiO2 11/26/24 17:00 98.5 71 18 125/71 (89) 99 98.5 11/26/24 13:53 Room Air* 0 21 Physical Exam General Appearance: Cooperative. Well developed. Well nourished. In no acute distress Head Exam: Normal inspection Neck Exam: Normal inspection. Non-tender. Normal alignment Pulmonary/Respiratory: Chest non-tender. Clear bilateral breath sounds Cardiovascular/Chest: Regular rate and rhythm. S1, S2. NSR. No murmurs. No JVD. Peripheral Pulses: 2+ Radial (R). 2+ Radial (L). 2+ Pedal (R). 2+ Pedal (L) Abdominal Exam: Normal bowel sounds. Soft. Somewhat tender Ankle Exam: Negative ankle edema Lower extremities: Negative lower extremity edema Neuro/Mental Status: A&O x4. Coherent Thoughts/Psych: Normal thought pattern. Appropriate mood and affect. Good judgement and insight Appearance: In no acute distress Skin Exam: Normal inspection. Normal color. Warm. Dry Labs/Diagnostic Data Labs Test 11/26/24 17:07 11/26/24 06:03 11/26/24 01:52 11/25/24 17:24 Range/Units POC Glucose 139 H 70-106 mg/dl White Blood Count 10.6 # 4.4-10.8 10^3/uL Red Blood Count 3.98 L 4.0-5.20 10^6/uL Hemoglobin 12.6 12.2-16.2 g/dL Hematocrit 37.4 36.0-46.0 % Mean Corpuscular Volume 93.9 80.0-100.0 fL Mean Corpuscular Hemoglobin 31.6 28.0-32.0 pg Mean Corpuscular Hemoglobin Concent 33.7 32.0-36.0 g/dL Red Cell Distribution Width 12.5 11.8-14.3 % Platelet Count 228 140-450 10^3/uL Mean Platelet Volume 8.6 6.9-10.8 fL Neutrophils (%) (Auto) 75.4 37.0-80.0 % Lymphocytes (%) (Auto) 12.5 10.0-50.0 % Monocytes (%) (Auto) 11.3 0.0-12.0 % Eosinophils (%) (Auto) 0.6 0.0-7.0 % Basophils (%) (Auto) 0.2 0.0-2.0 % Neutrophils # (Auto) 8.0 1.6-8.6 10 ^3/uL Lymphocytes # (Auto) 1.3 0.4-5.4 10 ^3/uL Monocytes # (Auto) 1.2 0-1.3 10 ^3/uL Eosinophils # (Auto) 0.1 0-0.8 10 ^3/uL Basophils # (Auto) 0 0-0.2 10 ^3/uL Nucleated Red Blood Cells 0.0 % Sodium Level 135 L 136-145 mmol/L Potassium Level 2.8 L 3.5-5.1 mmol/L Chloride Level 89 L 98-107 mmol/L Carbon Dioxide Level 34 H 20-31 mmol/L Anion Gap 12 5-15 Blood Urea Nitrogen 55 H 9-23 mg/dL Creatinine 4.73 H 0.550-1.02 mg/dL Glomerular Filtration Rate Calc 11 >90 mL/min BUN/Creatinine Ratio 11.6 10.0-20.0 Serum Glucose 115 H 74-106 mg/dL Calcium Level 7.6 L 8.7-10.4 mg/dL Total Bilirubin 0.3 0.2-1.0 mg/dL Aspartate Amino Transferase (AST) 38 13-40 U/L Alanine Aminotransferase (ALT) 18 7-40 U/L Alkaline Phosphatase 49 46-116 U/L Total Protein 6.2 5.7-8.2 g/dL Albumin 3.7 3.2-4.8 g/dL Prothrombin Time 11.4 9.3-11.8 sec Prothrombin Time INR 1.08 0.9-1.15 Activated Partial Thromboplast Time 30.1 24.5-34.5 SEC D-Dimer, Quantitative 8.50 H 0.0-0.49 mg/L FEU Hemoglobin A1c 6.1 H <5.7 % A1C Troponin I High Sensitivity 15 </=34 ng/L Assessment Noncardiac chest pain Rule out acute abdomen/UTI Insulin-dependent diabetes mellitus Hypertension Dyslipidemia Acute kidney injury Plan/Recommendation (Dr. Malloy) The patient presents with noncardiac chest pain and complains of abdominal pain and recent diagnosis of an UTI. Consider further workup for aforementioned complaints. Continue Nephrology recommendations. Replete electrolytes as necessary. There is no further cardiac workup indicated at this time. Kindly call if in need to re-consult. Thank you for allowing us to participate in this patient's care. This medical document was created using an electronic medical record system with voice recognition software and computerized dictation system. Although this d ocument has been carefully reviewed, there might still be some phonetic and typographical errors. Occasional wrong-word or ``sound-alike substitutions may have occurred due to the inherent limitations of voice recognition software. These areas are purely typographical due to imperfections of the software programs and do not reflect any compromise in the patient's medical care. Please read the chart carefully and recognize, using context, where these substitutions have occurred. Plan discussed with: Patient, Other NYHA Physical activity limitations: NA Date of Service: Nov 26, 2024 Billing Provider: RENAE ASHLEY Cardiology Common Codes: [id number] INP/OBS CARE (High) RENAE ASHLEY Nov 26, 2024 17:54
[2024-11-26 20:06] LABS: Urine Bacteria None Seen /hpf (None Seen)
[2024-11-26 20:19] LABS: Urine Blood 2+ /uL (Negative); Urine Clarity Turbid (Clear); Urine Color Light-Yellow (Yellow); Urine Protein, UAD 3+ (Negative); Urine Specific Gravity 1.025 (1.001-1.035); Urine Squamous Epithelial Cell MOD /hpf (<5); Urine Urobilinogen Normal (Negative); Urine WBC 27 /HPF (0-5); Urine pH 6.5 (5.0-9.0)
[2024-11-26] MEDS: HYDROcodone-ACET 5/325MG TAB PO PRN (21:00)
[2024-11-27] VITALS (8 sets, daily range): BP systolic 150–169; BP diastolic 66–86; PULSE 69–80; RESP 17–19; TEMP 98–98.4; O2SAT 96–99
[2024-11-27] MEDS: hydrALAZINE HCL 20 MG/ML VL IV PRN (04:27)
[2024-11-27] MEDS: ONDANSETRON HCL 4 MG/2 ML VIAL IV PRN (08:44)
[2024-11-27] MEDS: SODIUM CHLORIDE 0.9% 1,000 ML IV SCH (09:00)
--- NOTE | 2024-11-27 10:05 | DVHINCON2 ---
Date of service: Nov 27, [address] 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 Initial workup in the emergency room included a CT of the chest with contrast which was negative for PE. Nephrology has been consulted for the elevated creatinine. As per the history obtained from the patient she has CKD stage IIIB to CKD 4 secondary to diabetic nephropathy. Her GFR has been fluctuating. Last seen by the pmo analyst about a month ago at which time she was taken off wall Jardiance and metformin because of decreased GFR. Creatinine on presentation was 4. Underwent CT with contrast. Labs done yesterday showed that the creatinine had increased to 4.7 and insulin nephrology consultation. Patient continues to have epigastric discomfort. Also with intermittent nausea and vomiting. Denies any shortness of breath. Denies any edema to lower extremities. Urine output has been adequate. Past Medical History As stated above Past Surgical History None Family History: Diabetes mellitus G8 FATHER FH: cancer G8 MOTHER Family History Positive for diabetes and hypertension Social History No active history of smoking, alcohol or drug abuse Allergies: Coded Allergies: NO KNOWN ALLERGIES (Unverified , 11/23/24) Home Meds Reported Medications Sodium Bicarbonate (Sodium Bicarbonate) 650 Mg Tab, 1 TAB PO BID 11/26/24 Aspirin (Aspirin Low Dose) 81 Mg Tab, 1 DAILY 11/26/24 Lisinopril (Lisinopril) 10 Mg Tab, 1 TAB PO 11/26/24 Atorvastatin Calcium (ATORVASTATIN CALCIUM) 10 Mg Tab, 1 DAILY 11/26/24 Semaglutide (Ozempic) 4 Mg/3 Ml Inj 11/26/24 Insulin Glargine (Lantus) 100 Unit/Ml Inj, SC 11/26/24 Current Medications Current Medications Medications (Trade) Dose Ordered Sig/Eileen Route PRN Reason Start Time Stop Time Status Last Admin Pantoprazole Sodium (Protonix) 40 mg DAILY IV 11/26/24 10:00 11/27/24 08:44 Aspirin 81 mg DAILY PO 11/26/24 10:00 11/26/24 17:51 DC 11/26/24 10:30 Sodium Chloride 1,000 ml @ 100 mls/hr Q10H IV 11/27/24 09:00 Review of Systems 12 point review of systems negative except as stated in the HPI Vital Signs Vital Signs Date Time Temp Pulse Resp B/P (MAP) Pulse Ox O2 Delivery O2 Flow Rate FiO2 11/27/24 09:00 98.3 77 19 151/72 (98) 99 98.3 11/26/24 20:00 Room Air* 0 21 Physical Exam Alert awake oriented x3 HEENT: Normocephalic , no JVD Lungs: Bilateral clear to auscultation CVS: S1, S2 regular rate and rhythm Abdomen: Soft. No tenderness or guarding. 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 Extremities: No edema Labs/Diagnostic Data Labs Test 11/27/24 08:32 11/26/24 19:41 11/26/24 06:03 11/26/24 01:52 Range/Units POC Glucose 150 H 70-106 mg/dl Urine Color Light-yellow Yellow Urine Clarity Turbid H Clear Urine pH 6.5 5.0-9.0 Urine Specific [place] 1.025 1.001-1.035 Urine Protein 3+ H Negative Urine Ketones Negative Negative Urine Blood 2+ H Negative /uL Urine Nitrite Negative Negative Urine Bilirubin Negative Negative Urine Urobilinogen Normal Negative mg/dL Urine Leukocyte Esterase Trace Negative /uL Urine RBC 9 0 - 4 /hpf Urine Microscopic WBC 27 H 0-5 /HPF Urine Squamous Epithelial Cells Mod <5 /hpf Urine Bacteria None seen None Seen /hpf Urine Glucose 1+ H Normal mg/dL White Blood Count 10.6 # 4.4-10.8 10^3/uL Red Blood Count 3.98 L 4.0-5.20 10^6/uL Hemoglobin 12.6 12.2-16.2 g/dL Hematocrit 37.4 36.0-46.0 % Mean Corpuscular Volume 93.9 80.0-100.0 fL Mean Corpuscular Hemoglobin 31.6 28.0-32.0 pg Mean Corpuscular Hemoglobin Concent 33.7 32.0-36.0 g/dL Red Cell Distribution Width 12.5 11.8-14.3 % Platelet Count 228 140-450 10^3/uL Mean Platelet Volume 8.6 6.9-10.8 fL Neutrophils (%) (Auto) 75.4 37.0-80.0 % Lymphocytes (%) (Auto) 12.5 10.0-50.0 % Monocytes (%) (Auto) 11.3 0.0-12.0 % Eosinophils (%) (Auto) 0.6 0.0-7.0 % Basophils (%) (Auto) 0.2 0.0-2.0 % Neutrophils # (Auto) 8.0 1.6-8.6 10 ^3/uL Lymphocytes # (Auto) 1.3 0.4-5.4 10 ^3/uL Monocytes # (Auto) 1.2 0-1.3 10 ^3/uL Eosinophils # (Auto) 0.1 0-0.8 10 ^3/uL Basophils # (Auto) 0 0-0.2 10 ^3/uL Nucleated Red Blood Cells 0.0 % Sodium Level 135 L 136-145 mmol/L Potassium Level 2.8 L 3.5-5.1 mmol/L Chloride Level 89 L 98-107 mmol/L Carbon Dioxide Level 34 H 20-31 mmol/L Anion Gap 12 5-15 Blood Urea Nitrogen 55 H 9-23 mg/dL Creatinine 4.73 H 0.550-1.02 mg/dL Glomerular Filtration Rate Calc 11 >90 mL/min BUN/Creatinine Ratio 11.6 10.0-20.0 Serum Glucose 115 H 74-106 mg/dL Calcium Level 7.6 L 8.7-10.4 mg/dL Total Bilirubin 0.3 0.2-1.0 mg/dL Aspartate Amino Transferase (AST) 38 13-40 U/L Alanine Aminotransferase (ALT) 18 7-40 U/L Alkaline Phosphatase 49 46-116 U/L Total Protein 6.2 5.7-8.2 g/dL Albumin 3.7 3.2-4.8 g/dL Prothrombin Time 11.4 9.3-11.8 sec Prothrombin Time INR 1.08 0.9-1.15 Activated Partial Thromboplast Time 30.1 24.5-34.5 SEC Test 11/25/24 17:24 Range/Units D-Dimer, Quantitative 8.50 H 0.0-0.49 mg/L FEU Hemoglobin A1c 6.1 H <5.7 % A1C Troponin I High Sensitivity 15 </=34 ng/L Microbiology Date/Time Source Procedure Growth Status 11/25/24 21:39 Blood Blood Culture - Preliminary NO GROWTH AFTER 24 HOURS OF INCUBATION. 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
[2024-11-27 11:15] LABS: Anion Gap 13 (5-15); Carbon Dioxide 30 mmol/L (20-31)
[2024-11-27 11:20] LABS: BUN/Creatinine Ratio 12.3 (10.0-20.0)
[2024-11-27 11:26] LABS: Blood Urea Nitrogen 68 mg/dL (9-23); Calcium 7.6 mg/dL (8.7-10.4); Chloride 89 mmol/L (98-107); Glucose 204 mg/dL (74-106); Sodium 132 mmol/L (136-145)
--- NOTE | 2024-11-27 22:27 | DVHPN2 ---
Subjective The patient is seen and examined at bedside. No chest pain today. The patient being very tired. Reviewed: Care Plan, H&P, Labs, Medications, Previous Orders, Radiology Changes from previous H/P or p: No Changes Eyes: No Pain, No Vision change, No Conjunctivae inflammation, No Eyelid inflammation, No Other, No Redness ENT: No Ear pain, No Ear discharge, No Nose pain, No Nose discharge, No Nose congestion, No Mouth pain, No Mouth swelling, No Throat pain, No Throat swelling, No Other Cardiovascular: Chest Pain; No Palpitations, No Orthopnea, No Paroxysmal Noc. Dyspnea, No Edema, No Lt Headedness, No Other Respiratory: No Cough, No Dry; Shortness of breath; No SOB with excertion, No Wheezing, No Hemoptysis, No Pleuritic Pain, No Sputum, No Other Gastrointestinal: No Nausea, No Vomiting, No Abdominal Pain, No Diarrhea, No Constipation, No Melena, No Hematochezia, No Other Genitourinary: No Dysuria, No Frequency, No Incontinence, No Hematuria, No Retention, No Other Musculoskeletal: No other, No neck pain, No shoulder pain, No arm pain, No back pain, No hand pain, No leg pain, No foot pain Skin: No Rash, No Lesions, No Jaundice, No Bruising, No Other Objective Vitals Vital Signs Date Time Temp Pulse Resp B/P (MAP) Pulse Ox O2 Delivery O2 Flow Rate FiO2 11/27/24 21:00 98.0 80 17 169/84 (112) 99 98.0 11/27/24 08:00 Room Air* 0 21 Intake/Output Intake and Output 11/27/24 07:00 Intake Total 950 ml Balance 950 ml Intake Oral 780 ml IV Total 170 ml # Voids 2 General Appearance: Alert, Cooperative, No acute distress HEENT: Atraumatic, PERRLA, EOMI, Mucous membr. moist/pink Neck: Supple Lungs: Clear to auscultation, Normal air movement Cardiovascular: Regular rate, Normal S1, Normal S2, No murmurs, Gallops, Rubs Abdomen: Normal bowel sounds, Soft, No tenderness Neuro: Cranial nerves 3-12 NL Psych/Mental Status: Mental status NL Medications Current Medications Medications Dose Ordered Sig/Eileen Route Start Time Stop Time Status Last Admin Dose Admin Pantoprazole Sodium 40 mg DAILY IV 11/26/24 10:00 11/27/24 08:44 40 MG Acetaminophen/ Hydrocodone Bitart 1 tab Q4HP PRN PO 11/25/24 19:15 11/26/24 21:00 1 TAB Ondansetron HCl 4 mg Q4HP PRN IV 11/25/24 19:15 11/27/24 21:47 4 MG Docusate Sodium 100 mg BIDPRN PRN PO 11/25/24 19:15 Acetaminophen 650 mg Q6HP PRN PO 11/25/24 19:15 Ceftriaxone Sodium 50 ml @ 100 mls/hr DAILY@09 IV 11/26/24 09:00 11/27/24 08:44 100 MLS/HR Hydralazine HCl 10 mg Q6HP PRN IV 11/25/24 21:30 11/27/24 20:58 10 MG Diagnostic Test (Pha) 1 strip IQ4HR 11/26/24 00:00 11/27/24 20:58 1 STRIP Insulin Human Regular IQ4HR SC 11/26/24 00:00 11/27/24 21:05 3 UNITS Dextrose 50 ml UD PRN IV 11/25/24 21:30 Nitroglycerin 0.4 mg Q5MINP PRN SL 11/25/24 21:30 Morphine Sulfate 2 mg Q30M PRN IV 11/25/24 21:30 Sodium Chloride 1,000 ml @ 100 mls/hr Q10H IV 11/27/24 09:00 11/27/24 20:59 100 MLS/HR Laboratory Results Laboratory Tests 11/26/24 06:03 11/27/24 10:28 Chemistry Test 11/27/24 10:28 Calcium Level 7.6 mg/dL (8.7-10.4) L Urinalysis Test 11/26/24 19:41 Urine Color Light-yellow (Yellow) Urine Clarity Turbid (Clear) H Urine pH 6.5 (5.0-9.0) Urine Specific [place] 1.025 (1.001-1.035) Urine Protein 3+ (Negative) H Urine Ketones Negative (Negative) Urine Blood 2+ /uL (Negative) H Urine Nitrite Negative (Negative) Urine Bilirubin Negative (Negative) Urine Urobilinogen Normal mg/dL (Negative) Urine Leukocyte Esterase Trace /uL (Negative) Urine RBC 9 /hpf (0 - 4) Urine Microscopic WBC 27 /HPF (0-5) H Urine Squamous Epithelial Cells Mod /hpf (<5) Urine Bacteria None seen /hpf (None Seen) Urine Glucose 1+ mg/dL (Normal) H Microbiology Microbiology Date/Time Source Procedure Growth Status 11/26/24 19:41 Voided Urine Urine Culture - Preliminary Resulted 11/25/24 21:39 Blood Blood Culture - Preliminary NO GROWTH AFTER 48 HOURS OF INCUBATION. Resulted Labs and/or images reviewed: Labs reviewed by me Assessment/Plan Assessment/Plan Acute chest pain Leukocytosis, unspecified Electrolyte imbalance Elevated D-dimer Acute renal failure Generalized weakness Diabetes mellitus with hyperglycemia Complex solid-cystic lesion in the right adnexal region measuring up to approximately 7 cm per US. Continuing current management Appreciate nephrology input. Continuing sliding scale insulin. Discussed with the patient regarding to a complex solid cystic lesion of the right adnexa region. The patient will need further workup on this lesion. Appreciate senior corporate accountant's input. No further cardiology workup. This medical document was created using an electronic medical record system with [employer] direct computerized dictation system. Although this document has been carefully reviewed, there may still be some phonetic and typographical errors. These areas are purely typographical due to imperfections of the software programs, and do not reflect any compromise in the patient's medical care. Plan discussed with: Patient Date of Service: Nov 27, 2024 Billing Provider: RODRIGO QUINN MD Common Visit Codes: [id number] INP/OBS CARE(HIGH) RODRIGO QUINN MD Nov 27, 2024 22:27
[2024-11-27] MEDS: METOCLOPRAMIDE HCL 5MG/ml INJ 2ml VIAL IV ONE (23:29)
[2024-11-28] VITALS (8 sets, daily range): BP systolic 147–167; BP diastolic 69–83; PULSE 72–95; RESP 16–19; TEMP 98–98.9; O2SAT 95–100
[2024-11-28 06:30] LABS: Basophils # (auto) 0 10 ^3/uL (0-0.2); Eosinophils # (auto) 0.2 10 ^3/uL (0-0.8); Eosinophils % (auto) 1.3 % (0.0-7.0); Hematocrit 35.6 % (36.0-46.0); Hemoglobin 11.7 g/dL (12.2-16.2); Lymphocytes # (auto) 0.6 10 ^3/uL (0.4-5.4); Lymphocytes % (auto) 5.1 % (10.0-50.0); Mean Corpuscular Hemoglobin 31.1 pg (28.0-32.0); Mean Corpuscular Hgb Conc. 32.9 g/dL (32.0-36.0); Mean Corpuscular Volume 94.7 fL (80.0-100.0); Monocytes # (auto) 0.8 10 ^3/uL (0-1.3); Monocytes % (auto) 6.5 % (0.0-12.0); Neutrophils # (auto) 10.5 10 ^3/uL (1.6-8.6); Neutrophils % (auto) 87.1 % (37.0-80.0); Platelet Count (auto) 214 10^3/uL (140-450); Red Blood Cells 3.76 10^6/uL (4.0-5.20); Red Cell Distribution Width 12.4 % (11.8-14.3); White Blood Cell 12.1 10^3/uL (4.4-10.8)
[2024-11-28 07:01] LABS: Anion Gap 12 (5-15); Carbon Dioxide 26 mmol/L (20-31)
[2024-11-28 07:07] LABS: BUN/Creatinine Ratio 11.4 (10.0-20.0)
[2024-11-28 07:08] LABS: Blood Urea Nitrogen 57 mg/dL (9-23); Calcium 7.4 mg/dL (8.7-10.4); Chloride 94 mmol/L (98-107); Glucose 173 mg/dL (74-106); Sodium 132 mmol/L (136-145)
--- NOTE | 2024-11-28 15:13 | DVHPN2 ---
Subjective in bed resting, feeling well Changes from previous H/P or p: No Changes Eyes: No Pain, No Vision change, No Conjunctivae inflammation, No Eyelid inflammation, No Other, No Redness ENT: No Ear pain, No Ear discharge, No Nose pain, No Nose discharge, No Nose congestion, No Mouth pain, No Mouth swelling, No Throat pain, No Throat swelling, No Other Cardiovascular: Chest Pain; No Palpitations, No Orthopnea, No Paroxysmal Noc. Dyspnea, No Edema, No Lt Headedness, No Other Respiratory: No Cough, No Dry; Shortness of breath; No SOB with excertion, No Wheezing, No Hemoptysis, No Pleuritic Pain, No Sputum, No Other Gastrointestinal: No Nausea, No Vomiting, No Abdominal Pain, No Diarrhea, No Constipation, No Melena, No Hematochezia, No Other Genitourinary: No Dysuria, No Frequency, No Incontinence, No Hematuria, No Retention, No Other Musculoskeletal: No other, No neck pain, No shoulder pain, No arm pain, No back pain, No hand pain, No leg pain, No foot pain Skin: No Rash, No Lesions, No Jaundice, No Bruising, No Other Objective Vitals Vital Signs Date Time Temp Pulse Resp B/P (MAP) Pulse Ox O2 Delivery O2 Flow Rate FiO2 11/28/24 09:00 98.5 95 18 147/69 (95) 100 98.5 11/28/24 08:00 Room Air* 0 21 Intake/Output Intake and Output 11/28/24 07:00 Intake Total 4116 ml Output Total 2380 ml Balance 1736 ml Intake Oral 2316 ml IV Total 1800 ml Output Urine Total 2120 ml Emesis 260 ml General Appearance: Alert, Oriented X3 Lungs: Clear to auscultation Cardiovascular: Regular rate, Normal S1, Normal S2 Medications Current Medications Medications Dose Ordered Sig/Eileen Route Start Time Stop Time Status Last Admin Dose Admin Pantoprazole Sodium 40 mg DAILY IV 11/26/24 10:00 11/28/24 10:00 40 MG Acetaminophen/ Hydrocodone Bitart 1 tab Q4HP PRN PO 11/25/24 19:15 11/26/24 21:00 1 TAB Ondansetron HCl 4 mg Q4HP PRN IV 11/25/24 19:15 11/28/24 05:53 4 MG Docusate Sodium 100 mg BIDPRN PRN PO 11/25/24 19:15 Acetaminophen 650 mg Q6HP PRN PO 11/25/24 19:15 Ceftriaxone Sodium 50 ml @ 100 mls/hr DAILY@09 IV 11/26/24 09:00 11/28/24 09:00 100 MLS/HR Hydralazine HCl 10 mg Q6HP PRN IV 11/25/24 21:30 11/28/24 05:53 10 MG Diagnostic Test (Pha) 1 strip IQ4HR 11/26/24 00:00 11/28/24 12:08 1 STRIP Insulin Human Regular IQ4HR SC 11/26/24 00:00 11/28/24 12:00 3 UNITS Dextrose 50 ml UD PRN IV 11/25/24 21:30 Nitroglycerin 0.4 mg Q5MINP PRN SL 11/25/24 21:30 Morphine Sulfate 2 mg Q30M PRN IV 11/25/24 21:30 Sodium Chloride 1,000 ml @ 100 mls/hr Q10H IV 11/27/24 09:00 11/28/24 06:01 100 MLS/HR Laboratory Results Laboratory Tests 11/28/24 06:06 Chemistry Test 11/28/24 06:06 Calcium Level 7.4 mg/dL (8.7-10.4) L Urinalysis Test 11/26/24 19:41 Urine Color Light-yellow (Yellow) Urine Clarity Turbid (Clear) H Urine pH 6.5 (5.0-9.0) Urine Specific [place] 1.025 (1.001-1.035) Urine Protein 3+ (Negative) H Urine Ketones Negative (Negative) Urine Blood 2+ /uL (Negative) H Urine Nitrite Negative (Negative) Urine Bilirubin Negative (Negative) Urine Urobilinogen Normal mg/dL (Negative) Urine Leukocyte Esterase Trace /uL (Negative) Urine RBC 9 /hpf (0 - 4) Urine Microscopic WBC 27 /HPF (0-5) H Urine Squamous Epithelial Cells Mod /hpf (<5) Urine Bacteria None seen /hpf (None Seen) Urine Glucose 1+ mg/dL (Normal) H Microbiology Microbiology Date/Time Source Procedure Growth Status 11/26/24 19:41 Voided Urine Urine Culture - Final Complete 11/25/24 21:39 Blood Blood Culture - Preliminary NO GROWTH AFTER 48 HOURS OF INCUBATION. Resulted Assessment/Plan Assessment/Plan Acute chest pain probable musculoskeletal, no further cardiac workup needed. Leukocytosis probable reactive no further workup Electrolyte imbalance hyponatremia and hypokalemia, continues to improved, monitor daily Elevated D-dimer, PE rule dout Acute renal failure on CKD stage 4. Creat trending up to 5 today, nephrology on consult. on IVF Generalized weakness Diabetes mellitus with hyperglycemia Plan discussed with: Patient Date of Service: Nov 28, 2024 Billing Provider: REG AVELAR MD Common Visit Codes: [id number] INP/OBS CARE(HIGH) REG AVELAR MD Nov 28, 2024 15:13
--- NOTE | 2024-11-28 15:20 | DVH ---
NUCLEAR MEDICINE VENTILATION/PERFUSION LUNG SCAN. INDICATION: PULMONARY EMBOLISM TECHNIQUE: Following intravenous demonstration of 6 millicuries of technetium 99m MAA, and inhalati on of 40 mCi of Tc 99m DTPA scintigrams were obtained in multiple projections of the lungs. FINDINGS: There is normal uptake of radionuclide on both the ventilation and perfusion portions of the examinat ion. No mismatched perfusion defects are demonstrated. Uptake is normally homogeneous. IMPRESSION: Low probability for PE.
--- NOTE | 2024-11-28 17:43 | DVHPN2 ---
Progress Note - Dictate Date Seen: Nov 28, 2024 Medical Necessity Reason Pt with a Central, PICC or Fol: No Subjective no symptoms feeling much better vital signs Vital Sign Date Time Temp Pulse Resp B/P (MAP) Pulse Ox O2 Delivery O2 Flow Rate FiO2 11/28/24 17:00 98.6 72 18 153/76 (101) 98 98.6 11/28/24 08:00 Room Air* 0 21 Total Intake and Output 11/27/24 11/27/24 11/28/24 15:00 23:00 07:00 Intake Total 2176 ml 1940 ml Output Total 1060 ml 1320 ml Balance 1116 ml 620 ml medications Current Medications Medications Dose Ordered Sig/Eileen Route Start Time Stop Time Status Last Admin Dose Admin Pantoprazole Sodium 40 mg DAILY IV 11/26/24 10:00 11/28/24 10:00 40 MG Acetaminophen/ Hydrocodone Bitart 1 tab Q4HP PRN PO 11/25/24 19:15 11/26/24 21:00 1 TAB Ondansetron HCl 4 mg Q4HP PRN IV 11/25/24 19:15 11/28/24 05:53 4 MG Docusate Sodium 100 mg BIDPRN PRN PO 11/25/24 19:15 Acetaminophen 650 mg Q6HP PRN PO 11/25/24 19:15 Ceftriaxone Sodium 50 ml @ 100 mls/hr DAILY@09 IV 11/26/24 09:00 11/28/24 09:00 100 MLS/HR Hydralazine HCl 10 mg Q6HP PRN IV 11/25/24 21:30 11/28/24 05:53 10 MG Diagnostic Test (Pha) 1 strip IQ4HR 11/26/24 00:00 11/28/24 16:00 1 STRIP Insulin Human Regular IQ4HR SC 11/26/24 00:00 11/28/24 12:00 3 UNITS Dextrose 50 ml UD PRN IV 11/25/24 21:30 Nitroglycerin 0.4 mg Q5MINP PRN SL 11/25/24 21:30 Morphine Sulfate 2 mg Q30M PRN IV 11/25/24 21:30 Sodium Chloride 1,000 ml @ 100 mls/hr Q10H IV 11/27/24 09:00 11/28/24 06:01 100 MLS/HR objective Alert awake oriented x3 HEENT: Normocephalic , no JVD Lungs: Bilateral clear to auscultation CVS: S1, S2 regular rate and rhythm Abdomen: Soft. No tenderness or guarding. 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 Expected Outcomes/Goals: Minimize uremic syndrome, controlled DM, improved nutrition status Plan discussed with: Patient JONH JARVIS MD Nov 28, 2024 17:43
[2024-11-28] MEDS: SODIUM CHLORIDE 0.9% 1,000 ML IV SCH (17:45)
[2024-11-29 01:00] VITALS: BP 153/74; PULSE 84; RESP 18; TEMP 98.1; O2SAT 98
[2024-11-29 08:00] VITALS: PULSE 75; RESP 19; O2SAT 99
[2024-11-29] MEDS: DOCUSATE SOD 100 MG CAP PO PRN (08:51)
[2024-11-29 09:00] VITALS: BP 156/87; PULSE 80; RESP 15; TEMP 98.4; O2SAT 100
--- NOTE | 2024-11-29 11:38 | DVH ---
CLINICAL INFORMATION: 44 years old, Female; right adnexal mass on ultrasound. TECHNIQUE: Axial CT images of the abdomen and pelvis were obtained without IV contrast. Coronal and s agittal reformatted images were obtained, reviewed, and stored. Evaluation of the parenchymal organs is limited without IV contrast. Evaluation of the bowel and mesentery is limited without oral contras t. All CT scans at this medical facility are performed using dose modulation techniques as appropriat e to a performed exam including the following: Automated exposure control was utilized; adjustment of the MA and/or KV according to patient size; and use of iterative reconstruction technique. CTDIvol = 10.93 mGy DLP = 638.17 mGy-cm COMPARISON: Correlation made to renal ultrasound dated 11/25/2024 FINDINGS: Lung bases: Lung bases are clear. Liver: Grossly unremarkable in its noncontrast enhanced appearance. No abnormal density or focal lesi on identified. Biliary: No calcified gallstones or biliary ductal dilatation. Spleen: Unremarkable. Pancreas: Grossly unremarkable in its noncontrast enhanced appearance. Adrenal glands: Unremarkable. No mass. Kidneys: Heterogeneous appearance of both kidneys with moderate perinephric stranding. No hydronephro sis. Aorta/Vascular: Moderate atherosclerotic calcification. No abdominal aortic aneurysm. Retroperitoneum: No mass or lymphadenopathy. Bowel/mesentery: No small bowel obstruction. Appendix is visualized and appears unremarkable. Scatte red small colonic diverticula without adjacent inflammatory changes to suggest diverticulitis. Pelvic organs: Right adnexal mass seen on the prior ultrasound is poorly delineated from the uterus o n noncontrast enhanced CT, appears to measure up to 6.9 cm Bladder: Unremarkable. No mass. Abdominal wall: No mass or hernia. Bones: No acute fracture or suspicious intraosseous lesion. IMPRESSION: 1. Right adnexal mass is not well evaluated on noncontrast enhanced CT recommend MRI pelvis without a nd with contrast 2 better characterize this finding. 2. Heterogeneous appearance of both kidneys with moderate inflammatory stranding. Pyelonephritis coul d have a similar appearance in the appropriate clinical setting. Correlate with clinical findings. 3. Additional findings as detailed above.
[2024-11-29 12:10] LABS: Anion Gap 7 (5-15); Carbon Dioxide 29 mmol/L (20-31)
[2024-11-29 12:15] LABS: BUN/Creatinine Ratio 10.1 (10.0-20.0)
[2024-11-29 12:21] LABS: Blood Urea Nitrogen 42 mg/dL (9-23); Calcium 7.9 mg/dL (8.7-10.4); Chloride 95 mmol/L (98-107); Glucose 203 mg/dL (74-106); Potassium 3.3 mmol/L (3.5-5.1); Sodium 131 mmol/L (136-145)
[2024-11-29 13:00] VITALS: BP 170/77; PULSE 82; RESP 16; TEMP 98.5; O2SAT 96
--- NOTE | 2024-11-29 14:33 | DVHDS2 ---
Discharge Summary Date of Admission Nov 25, 2024 at 21:28 Date of Discharge: Nov 29, 2024 Labs/Diagnostic Data: Laboratory Results Test 11/29/24 11:30 11/29/24 08:27 11/28/24 06:06 11/26/24 19:41 Sodium Level 131 mmol/L (136-145) Potassium Level 3.3 mmol/L (3.5-5.1) Chloride Level 95 mmol/L (98-107) Carbon Dioxide Level 29 mmol/L (20-31) Anion Gap 7 (5-15) Blood Urea Nitrogen 42 mg/dL (9-23) Creatinine 4.17 mg/dL (0.550-1.02) Glomerular Filtration Rate Calc 13 mL/min (>90) BUN/Creatinine Ratio 10.1 (10.0-20.0) Serum Glucose 203 mg/dL (74-106) Calcium Level 7.9 mg/dL (8.7-10.4) POC Glucose 126 mg/dl (70-106) White Blood Count 12.1 10^3/uL (4.4-10.8) Red Blood Count 3.76 10^6/uL (4.0-5.20) Hemoglobin 11.7 g/dL (12.2-16.2) Hematocrit 35.6 % (36.0-46.0) Mean Corpuscular Volume 94.7 fL (80.0-100.0) Mean Corpuscular Hemoglobin 31.1 pg (28.0-32.0) Mean Corpuscular Hemoglobin Concent 32.9 g/dL (32.0-36.0) Red Cell Distribution Width 12.4 % (11.8-14.3) Platelet Count 214 10^3/uL (140-450) Mean Platelet Volume 8.3 fL (6.9-10.8) Neutrophils (%) (Auto) 87.1 % (37.0-80.0) Lymphocytes (%) (Auto) 5.1 % (10.0-50.0) Monocytes (%) (Auto) 6.5 % (0.0-12.0) Eosinophils (%) (Auto) 1.3 % (0.0-7.0) Basophils (%) (Auto) 0.0 % (0.0-2.0) Neutrophils # (Auto) 10.5 10 ^3/uL (1.6-8.6) Lymphocytes # (Auto) 0.6 10 ^3/uL (0.4-5.4) Monocytes # (Auto) 0.8 10 ^3/uL (0-1.3) Eosinophils # (Auto) 0.2 10 ^3/uL (0-0.8) Basophils # (Auto) 0 10 ^3/uL (0-0.2) Nucleated Red Blood Cells 0.0 % Urine Color Light-yellow (Yellow) Urine Clarity Turbid (Clear) Urine pH 6.5 (5.0-9.0) Urine Specific [place] 1.025 (1.001-1.035) Urine Protein 3+ (Negative) Urine Ketones Negative (Negative) Urine Blood 2+ /uL (Negative) Urine Nitrite Negative (Negative) Urine Bilirubin Negative (Negative) Urine Urobilinogen Normal mg/dL (Negative) Urine Leukocyte Esterase Trace /uL (Negative) Urine RBC 9 /hpf (0 - 4) Urine Microscopic WBC 27 /HPF (0-5) Urine Squamous Epithelial Cells Mod /hpf (<5) Urine Bacteria None seen /hpf (None Seen) Urine Glucose 1+ mg/dL (Normal) Test 11/26/24 06:03 11/26/24 01:52 11/25/24 17:24 Total Bilirubin 0.3 mg/dL (0.2-1.0) Aspartate Amino Transferase (AST) 38 U/L (13-40) Alanine Aminotransferase (ALT) 18 U/L (7-40) Alkaline Phosphatase 49 U/L (46-116) Total Protein 6.2 g/dL (5.7-8.2) Albumin 3.7 g/dL (3.2-4.8) Prothrombin Time 11.4 sec (9.3-11.8) Prothrombin Time INR 1.08 (0.9-1.15) Activated Partial Thromboplast Time 30.1 SEC (24.5-34.5) D-Dimer, Quantitative 8.50 mg/L FEU (0.0-0.49) Hemoglobin A1c 6.1 % A1C (<5.7) Troponin I High Sensitivity 15 ng/L (</=34) Other Laboratory Tests 11/29/24 11:30 11/28/24 06:06 Brief Hx & Hospital Course: The patient is a 44-year-old female with past medical history of hypertension, DM, and hyperlipidemia who presented to [facility] ED with complaint of chest pain. Patient reports symptoms progressively get worse with substernal chest pain, rating 8/10 numeric scale, associated palpitations, getting worse that prompted this visit. Patient was seen and evaluated in the ED, laboratory data shows WBC 15.2, platelets 339, sodium 133, potassium 2.6, BUN 48, creatinine 4.03, GFR 13, glucose 247, anion gap 16, troponin 15, D-dimer 8.50, blood pressure 133/79, heart rate 92, temperature 98.3 F, O2 saturation 99% on oxygen. CT Angiography showed no pulmonary emboli, pulmonary artery hypertension, no pulmonary infiltrates or pleural effusions. Please see medication orders section in the computer. On my assessment, patient denied chest pain at this moment, no headache, no dizziness, no nausea, no vomiting, no fever, no chills. No other modifying factor or other associated signs and symptoms noted. The patient was admitted to the hospital for further evaluation and medical management. chest pain probable muscular CT angio, US lower and VQ scan negative for PE or dissection KATE improved Condition at Discharge: Good Final Diagnosis/Problems List acute kidney injury on CKD Acute chest pain probable muscular in nature Leukocytosis reactive, infection ruled out Electrolyte imbalance hyponatremia and hypokalemia Elevated D-dimer PE and DVT ruled out Generalized weakness Diabetes mellitus with hyperglycemia uncontrolled Discharge Disposition: Home Discharge Instruct/Medications Diet: Renal Activity: No Restrictions, As Tolerated Follow Up/Referral: pcp 1 week Medications: same Discharge Statement: "Patient was advised to return to the ER or call 911 if any headaches, dizziness, shortness of breath, chest pain, abdominal pain, bleeding, fevers, or worsening of medical condition. Patient was counseled about treatment plan, medications, possible side effects, patientverbalized understanding. All questions were answered to the best of my ability. This discharge took greater then 30 minutes in planning, reviewing documentation, counseling the patient, and discussing with other team members." ASSESSMENT ASSESSMENT Assessment acute kidney injury on CKD Date of Service: Nov 29, 2024 Billing Provider: REG AVELAR MD Common Visit Codes: 72774-QZL/OBS DISCH DAY >30min REG AVELAR MD Nov 29, 2024 14:33
--- NOTE | 2024-11-29 15:20 | DVHPN2 ---
Progress Note - Dictate Date Seen: Nov 29, 2024 Medical Necessity Reason Pt with a Central, PICC or Fol: No Subjective no symptoms feeling much better vital signs Vital Sign Date Time Temp Pulse Resp B/P (MAP) Pulse Ox O2 Delivery O2 Flow Rate FiO2 11/29/24 13:00 98.5 82 16 170/77 (108) 96 98.5 11/28/24 20:00 Room Air* 0 21 Total Intake and Output 11/28/24 11/28/24 11/29/24 15:00 23:00 07:00 Intake Total 608 ml 2160 ml Output Total 2125 ml 1600 ml Balance -1517 ml 560 ml medications Current Medications Medications Dose Ordered Sig/Eileen Route Start Time Stop Time Status Last Admin Dose Admin Pantoprazole Sodium 40 mg DAILY IV 11/26/24 10:00 11/29/24 08:51 40 MG Acetaminophen/ Hydrocodone Bitart 1 tab Q4HP PRN PO 11/25/24 19:15 11/26/24 21:00 1 TAB Ondansetron HCl 4 mg Q4HP PRN IV 11/25/24 19:15 11/28/24 20:58 4 MG Docusate Sodium 100 mg BIDPRN PRN PO 11/25/24 19:15 11/29/24 08:51 100 MG Acetaminophen 650 mg Q6HP PRN PO 11/25/24 19:15 Ceftriaxone Sodium 50 ml @ 100 mls/hr DAILY@09 IV 11/26/24 09:00 11/29/24 08:51 100 MLS/HR Hydralazine HCl 10 mg Q6HP PRN IV 11/25/24 21:30 11/28/24 05:53 10 MG Diagnostic Test (Pha) 1 strip IQ4HR 11/26/24 00:00 11/29/24 08:00 1 STRIP Insulin Human Regular IQ4HR SC 11/26/24 00:00 11/29/24 04:04 2 UNITS Dextrose 50 ml UD PRN IV 11/25/24 21:30 Nitroglycerin 0.4 mg Q5MINP PRN SL 11/25/24 21:30 Morphine Sulfate 2 mg Q30M PRN IV 11/25/24 21:30 Sodium Chloride 1,000 ml @ 70 mls/hr [id number] IV 11/28/24 17:45 11/29/24 06:57 70 MLS/HR objective Alert awake oriented x3 HEENT: Normocephalic , no JVD Lungs: Bilateral clear to auscultation CVS: S1, S2 regular rate and rhythm Abdomen: Soft. No tenderness or guarding. 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 Expected Outcomes/Goals: Minimize uremic syndrome, controlled DM, improved nutrition status Plan discussed with: Patient JONH JARVIS MD Nov 29, 2024 15:20
== END 2024-11-29 16:20 | disposition home or self-care (01) | DRG 203 ==
LOC: EDBD 17:00 → EDUNIT# 17:00 → ER 17:00 → OVERFLOW 21:28 → TELE-EAST 11-26 13:53
PROVIDERS: ADMIT Hospitalist; ATTEND Hospitalist
DX: R07.89 Other chest pain (principal); N17.0 Acute kidney failure with tubular necrosis; E87.3 Alkalosis; E87.1 Hypo-osmolality and hyponatremia; E11.22 Type 2 diabetes mellitus with diabetic chronic kidney disease; D72.829 Elevated white blood cell count, unspecified; E11.65 Type 2 diabetes mellitus with hyperglycemia; I16.0 Hypertensive urgency; E78.5 Hyperlipidemia, unspecified; N39.0 Urinary tract infection, site not specified; E87.6 Hypokalemia; N18.4 Chronic kidney disease, stage 4 (severe); I12.9 Hypertensive chronic kidney disease with stage 1 through stage 4 chronic kidney disease, or unspecified chronic kidney disease; E27.9 Disorder of adrenal gland, unspecified; Z79.4 Long term (current) use of insulin; Z79.84 Long term (current) use of oral hypoglycemic drugs; Z82.49 Family history of ischemic heart disease and other diseases of the circulatory system; Z83.3 Family history of diabetes mellitus; Z79.899 Other long term (current) drug therapy; Z98.891 History of uterine scar from previous surgery; Z79.82 Long term (current) use of aspirin
CPT/HCPCS: 36415; 71275; 74176; 76775; 78582; 80048; 80053; 81001; 82962; 83036; 84484; 85025; 85379; 85610; 85730; 87040; 87086; 93005; 93970; 96361; 96365; 96375; 96376; 99291; G0378; J1815; J2405; J2470

== ENCOUNTER 2025-01-14 14:28 | Inpatient (IN) | payer MEDICAID ==
[~2025-01-14] VITALS: Ht 175.3 cm; Wt 65.5 kg
[~2025-01-14 14:28] MED LIST changes: +ASPI-325; +ATOR10TA52; +INSLANTI SC; +LISI10TA34 PO; -NITR-87 PO; +SEMA4INJ; +SODI650T PO; -ZOFR4T PO
--- NOTE | 2025-01-14 15:16 | ED.PDOC ---
GI ASSESSMENT HPI Comments 44 year old female UTE presents to the ED with chief complaint of N/V. Patient reports that she was recently discharged from [facility] a week ago for nausea and vomiting, however, she has been experiencing more nausea/vomiting with associated epigastric abdominal pain and generalized weakness since Thursday. Patient states her last bowel movement was on Thursday, 4 days ago. Patient notes she was prescribed Zofran, but no relief has been noted. Patient denies any chest pain, fever, chills, dysuria, hematemesis, headache, or dizziness. Chief Complaint: Nausea/Vomiting Time Seen by MD: 15:12 Primary Care Provider: TONI Hernandez Notes: Nurses Notes, Admissions Evaluator Notes, Medications, Allergies Allergies: Coded Allergies: NO KNOWN ALLERGIES (Unverified , 11/23/24) Home Meds Reported Medications Sodium Bicarbonate (Sodium Bicarbonate) 650 Mg Tab, 1 TAB PO BID 11/26/24 Aspirin (Aspirin Low Dose) 81 Mg Tab, 1 DAILY 11/26/24 Lisinopril (Lisinopril) 10 Mg Tab, 1 TAB PO 11/26/24 Atorvastatin Calcium (ATORVASTATIN CALCIUM) 10 Mg Tab, 1 DAILY 11/26/24 Semaglutide (Ozempic) 4 Mg/3 Ml Inj 11/26/24 Insulin Glargine (Lantus) 100 Unit/Ml Inj, SC 11/26/24 Information Source: Patient, Emergency Med Personnel Mode of Arrival: EMS Timing: Days Duration: Since onset Prehospital treatment: None Quality: Aching Vomitus: Watery Stool: Impaction Severity: Moderate Recent: None Recent Hx of: None Pain Location: Epigastric Modifying Factors: Nothing Associated sign and symptoms: Nausea, Vomiting, Constipation, Abdominal Pain Past Medical History PAST MEDICAL HISTORY: CKF, DM, HTN Surgical History: SURVEY SUPERINTENDENT History: No Pertinent SURVEY SUPERINTENDENT History Family History Family History: Reviewed,noncontributory to illness, Family hx of DM, Family hx of HTN Social History Smoker: Non-Smoker Alcohol: Denies ETOH Use Drugs: Denies Drug Use Lives In: Home Constitutional: reports: weakness; denies: chills, diaphoresis, fatigue, fever, malaise, sweats, others EENTM: denies: blurred vision, double vision, ear bleeding, ear discharge, ear drainage, ear pain, ear ringing, eye pain, eye redness, hearing loss, mouth pain, mouth swelling, nasal discharge, nose bleeding, nose congestion, nose pain, photophobia, tearing, throat pain, throat swelling, voice changes, others Respiratory: denies: cough, hemoptysis, orthopnea, SOB at rest, shortness of breath, SOB with excertion, stridor, wheezing, others Cardiovascular: denies: chest pain, dizzy spells, diaphoresis, Dyspnea on exertion, edema, irregular heart beat, left arm pain, lightheadedness, palpi tations, PND, syncope, others Gastrointestinal: reports: abdominal pain, constipated, nausea, vomiting; denies: abdomen distended, blood streaked bowels, diarrhea, dysphagia, difficulty swallowing, hematemesis, melena, poor appetite, poor fluid intake, rectal bleeding, rectal pain, others Genitourinary: denies: abnormal vagina bleeding, burning, dyspareunia, dysuria, flank pain, frequency, hematuria, incontinence, pain, , vagina discharge, urgency, others Neurological: denies: dizziness, fainting, headache, left sided numbness, left sided weakness, numbness, paresthesia, pre-existing deficit, right sided numbness, right sided weakness, seizure, speech problems, tingling, tremors, weakness, others Musculoskeletal: denies: back pain, gout, joint pain, joint swelling, muscle pain, muscle stiffness, neck pain, others Integumetry: denies: bruises, change in color, change in hair/nails, dryness, laceration, lesions, lumps, rash, wounds, others Allergic/Immunocompromised: denies: Difficulty Healing, Frequent Infections, Hives, Itching, others Hematologic/Lymphatic: denies: anemia, blood clots, easy bleeding, easy bruising, swollen glands, others Endocrine: denies: excessive hunger, excessive sweating, excessive thirst, excessive urination, flushing, intolerance to cold, intolerance to heat, unexplained weight gain, unexplained weight loss, others Psychiatric: denies: anxiety, bipolar disorder, depression, hopeless, panic disorder, schizophrenia, sleepless, suicidal, others All Other Systems: Reviewed and Negative Physical Exam General Appearance: Moderate Distress HEENT: Other (Pupils and face symmetric, dry mucous membranes) Neck: Full Range of Motion, Normal Inspection Respiratory: Lungs Clear, No Accessory Muscle Use, No Respiratory Distress, Normal Breath Sounds Cardiovascular: No Edema, No JVD, Regular Rate/Rhythm Breast Exam: Deferred Gastrointestinal: Epigastric, LLQ, RUQ, Soft, Tenderness Genitalia: Deferred Pelvic: Deferred Rectal: Deferred Extremities: Normal inspection, Normal range of motion, Non-tender, No pedal edema Neurologic: Alert (Oriented x4), Normal Affect, Normal Mood, Other (Moves all extremities.) Cerebellar Function: NOT DONE Reflexes: NOT DONE Skin: Dry, Pallor, Warm Lymphatic: NOT DONE EKG EKG : Comments Sinus rhythm, rate 87, normal VA and QRS intervals, QTC prolonged at 555, normal axis, normal QRS, no ST/T changes. Was a procedure done? Was a procedure done?: No GI differential Dx Differential Diagnosis: Bowel Obstruction, Constipation, Diverticular disease, Esophagitis, Gastritis/PUD, Gastroenteritis, Inflammatory BD, Ischemic Bowel, Pancreatitis, UTI, Dehydration, Diabetes/ DKA, Electrolyte Imbalance, Food Poisoning, , Bacterial, Viral, Hypovolemia, Impaction, Renal Failure, Stress Ulcer X-Ray, Labs, Meds, VS Vital Signs Date Time Temp Pulse Resp B/P (MAP) Pulse Ox O2 Delivery O2 Flow Rate FiO2 01/14/25 16:10 78 01/14/25 15:41 82 22 158/72 01/14/25 14:37 98.6 84 16 85/52 (63) 96 98.6 01/14/25 14:33 87 Lab Test 01/14/25 17:41 01/14/25 15:33 Range/Units Troponin I High Sensitivity Pending 10 </=34 ng/L White Blood Count 19.9 H 4.4-10.8 10^3/uL Red Blood Count 3.82 L 4.0-5.20 10^6/uL Hemoglobin 11.9 L 12.2-16.2 g/dL Hematocrit 34.8 L 36.0-46.0 % Mean Corpuscular Volume 91.2 80.0-100.0 fL Mean Corpuscular Hemoglobin 31.1 28.0-32.0 pg Mean Corpuscular Hemoglobin Concent 34.1 32.0-36.0 g/dL Red Cell Distribution Width 12.7 11.8-14.3 % Platelet Count 359 140-450 10^3/uL Mean Platelet Volume 7.9 6.9-10.8 fL Neutrophils (%) (Auto) 85.0 H 37.0-80.0 % Lymphocytes (%) (Auto) 5.5 L 10.0-50.0 % Monocytes (%) (Auto) 9.3 0.0-12.0 % Eosinophils (%) (Auto) 0.1 0.0-7.0 % Basophils (%) (Auto) 0.1 0.0-2.0 % Neutrophils # (Auto) 16.9 H 1.6-8.6 10 ^3/uL Lymphocytes # (Auto) 1.1 0.4-5.4 10 ^3/uL Monocytes # (Auto) 1.8 H 0-1.3 10 ^3/uL Eosinophils # (Auto) 0 0-0.8 10 ^3/uL Basophils # (Auto) 0 0-0.2 10 ^3/uL Nucleated Red Blood Cells 0.0 % Sodium Level 132 L 136-145 mmol/L Potassium Level 2.9 L 3.5-5.1 mmol/L Chloride Level 82 L 98-107 mmol/L Carbon Dioxide Level 35 H 20-31 mmol/L Anion Gap 15 5-15 Blood Urea Nitrogen 53 H 9-23 mg/dL Creatinine 5.49 H 0.550-1.02 mg/dL Glomerular Filtration Rate Calc 9 >90 mL/min BUN/Creatinine Ratio 9.7 L 10.0-20.0 Serum Glucose 210 H 74-106 mg/dL Calcium Level 8.4 L 8.7-10.4 mg/dL Total Bilirubin 0.8 0.2-1.0 mg/dL Aspartate Amino Transferase (AST) 11 L 13-40 U/L Alanine Aminotransferase (ALT) 13 7-40 U/L Alkaline Phosphatase 53 46-116 U/L B-Type Natriuretic Peptide 14.77 0-100 pg/mL Total Protein 6.4 5.7-8.2 g/dL Albumin 3.9 3.2-4.8 g/dL Lipase 65 H 12-53 U/L Beta HCG, Quantitative 0.9 L 1.5-4.2 mIU/mL Current Medications Medications (Trade) Dose Ordered Sig/Eileen Route Start Time Stop Time Status Last Admin Sodium Chloride 1,000 ml @ 1,000 mls/hr Q1H ONCE IV 01/14/25 15:15 01/14/25 16:14 DC 01/14/25 16:00 Metoclopramide HCl (Reglan Injection) 10 mg ONCE ONCE IV 01/14/25 15:15 01/14/25 15:16 DC 01/14/25 15:39 Pantoprazole Sodium (Protonix) 40 mg ONCE ONCE IV 01/14/25 15:15 01/14/25 15:16 DC 01/14/25 15:50 Morphine Sulfate 2 mg ONCE ONCE IV 01/14/25 15:15 01/14/25 15:16 DC 01/14/25 15:41 CT Abd/Pel: FINDINGS: IMPRESSION: 1. Punctate calculus right kidney no hydronephrosis 2. 7 cm right adnexal mass consider pelvic ultrasound for further evaluation. 3. No calcified gallstones 4. CT findings to suggest abnormal dilatation of the small bowel or colon., ADDENDUM # 1 Impression: 1. Should read: No CT findings to suggest abnormal dilatation of small bowel or colon. X-Ray, Labs, Meds, VS Comment 44-year-old female with history of hypertension, diabetes and CKD brought in by EMS from home complaining of nausea, vomiting and upper abdominal pain. Patient states she was just discharged from [facility] yesterday for similar symptoms. Vitals remarkable for BP 85/52 Exam remarkable for upper abdominal tenderness to palpation Rhythm strip independently interpreted by me: Sinus rhythm, rate 87, no ectopy. CT Abd/Pel: FINDINGS: IMPRESSION: 1. Punctate calculus right kidney no hydronephrosis 2. 7 cm right adnexal mass consider pelvic ultrasound for further evaluation. 3. No calcified gallstones 4. CT findings to suggest abnormal dilatation of the small bowel or colon., ADDENDUM # 1 Impression: 1. Should read: No CT findings to suggest abnormal dilatation of small bowel or colon. remarkable for WBC 19.9, metabolic panel remarkable for sodium 132, potassium 2.9, chloride 82, CO2 35, BUN 53, creatinine 5.49, glucose 210, lipase elevated at 65, BNP and troponin negative Patient treated with the following in the ED: 1 L 0.9 normal saline IV bolus x2, morphine 2 mg IV, then 10 mg IV, Protonix 40 mg IV, K rider 20 mEq IV On re-evaluation, patient states symptoms have improved. Vitals were stable. Plan is to admit the patient for emesis control, IV hydration, electrolyte correction and GI evaluation. Time of 1ST Reevaluation: 16:12 Reevaluation 1ST: Unchanged Patient Education/Counseling: Diagnosis, Treatment Family Education/Counseling: No Family Present Additional Information -Reviewed patient's previous visit(s): 11/25/24 for chest pain - The following tests were ordered, and results were reviewed by me: CBC, CMP, BNP, UA, Troponin, BHCG Quant, Lipase, EKG, CT Abd/pel - Additional information was gathered from interviewing the following independent Historian: EMS - I reviewed and agreed with the following test results read by other provider: CT Abd/Pel - I discussed treatments and results with medical personnel and: patient Comprehensive systems review obtained and negative except for what is stated in the HPI. Departure 1 Departure Time of Disposition: 18:25 Impression: Primary Impression: Nausea and vomiting Qualified Codes: R11.2 - Nausea with vomiting, unspecified Additional Impressions: Electrolyte imbalance Acute kidney injury Pancreatitis Qualified Codes: K85.90 - Acute pancreatitis without necrosis or infection, unspecified Disposition: ADMITTED INPATIENT Admit to: Med Surg Condition: Guarded Critical Care Note Critical Care Time?: No Stability Stability form required: No Heart Score Heart Score: Heart Score Response (Comments) Value History N/A 0 EKG N/A 0 Age N/A 0 Risk Factors N/A 0 Troponin N/A 0 Total 0 I personally scribed for ANNE CHIANG MD ([email or web address]) on 01/14/25 at 15:16. Electronically submitted by Avtar Resendez ([email or web address]). I personally scribed for ANNE CHIANG MD ([email or web address]) on 01/14/25 at 17:04. Electronically submitted by Avtar Resendez ([email or web address]). ANNE CHIANG MD Jan 14, 2025 15:16
[2025-01-14] MEDS: METOCLOPRAMIDE HCL 5MG/ml INJ 2ml VIAL IV ONE (15:39)
[2025-01-14] MEDS: MORPHINE SULFATE INJ 2 MG/ml SYRG IV ONE (15:41)
[2025-01-14] MEDS: PANTOPRAZOLE 40 MG/10 ML VIAL INJ IV ONE (15:50)
[2025-01-14 15:55] LABS: Basophils # (auto) 0 10 ^3/uL (0-0.2); Basophils % (auto) 0.1 % (0.0-2.0); Eosinophils # (auto) 0 10 ^3/uL (0-0.8); Eosinophils % (auto) 0.1 % (0.0-7.0); Hematocrit 34.8 % (36.0-46.0); Hemoglobin 11.9 g/dL (12.2-16.2); Lymphocytes # (auto) 1.1 10 ^3/uL (0.4-5.4); Lymphocytes % (auto) 5.5 % (10.0-50.0); Mean Corpuscular Hemoglobin 31.1 pg (28.0-32.0); Mean Corpuscular Hgb Conc. 34.1 g/dL (32.0-36.0); Mean Corpuscular Volume 91.2 fL (80.0-100.0); Monocytes # (auto) 1.8 10 ^3/uL (0-1.3); Monocytes % (auto) 9.3 % (0.0-12.0); Neutrophils # (auto) 16.9 10 ^3/uL (1.6-8.6); Platelet Count (auto) 359 10^3/uL (140-450); Red Blood Cells 3.82 10^6/uL (4.0-5.20); Red Cell Distribution Width 12.7 % (11.8-14.3); White Blood Cell 19.9 10^3/uL (4.4-10.8)
[2025-01-14] MEDS: SODIUM CHLORIDE 0.9% 1,000 ML IV ONE ×2 (16:00→19:40)
[2025-01-14 16:02] LABS: Alanine Aminotransferase 13 U/L (7-40); Albumin 3.9 g/dL (3.2-4.8); Alkaline Phosphatase 53 U/L (46-116); Anion Gap 15 (5-15); BUN/Creatinine Ratio 9.7 (10.0-20.0); Bilirubin, Total 0.8 mg/dL (0.2-1.0); Total Protein 6.4 g/dL (5.7-8.2)
[2025-01-14 16:06] LABS: Aspartate Aminotransferase 11 U/L (13-40); Blood Urea Nitrogen 53 mg/dL (9-23); Calcium 8.4 mg/dL (8.7-10.4); Carbon Dioxide 35 mmol/L (20-31); Chloride 82 mmol/L (98-107); Glucose 210 mg/dL (74-106); Lipase 65 U/L (12-53); Potassium 2.9 mmol/L (3.5-5.1); Sodium 132 mmol/L (136-145)
--- NOTE | 2025-01-14 16:54 | DVH ---
Exam: CT CT AB PEL WO CON-NO ORAL OR IV History: upper abd pain n/v Comparison Study: None available at time of dictation. TECHNIQUE: Multidetector CT of the abdomen was performed from lung bases to pubic symphysis. Imaging was performed without IV contrast. Axial, coronal and sagittal multiplanar reformats were obtained fr om the axial data set by the technologist. Radiation Dose Information: CT Dose: CTDI volume is 7.54 mGy. Dose-length product is 394.66 mGy*cm FINDINGS: Evaluation of solid organs is limited due to lack of intravenous contrast use. Findings: Lung Bases: No acute or significant lung base finding. Normal heart size. No pleural or pericardial effusion. Liver: The liver is normal in size. No focal lesions. Gallbladder and Biliary Tree: Unremarkable Spleen: Unremarkable Pancreas: The pancreas is grossly normal in appearance. Adrenal Glands: Unremarkable Kidneys: Punctate calculus right kidney no hydronephrosis Bladder: Grossly unremarkable for degree of distention. Bowel: The stomach is grossly normal in appearance. Small bowel and colon are normal in caliber and d istribution. The appendix is not visualized; however, no secondary findings of acute appendicitis id entified. Ascites: Absent Lymphadenopathy: No mesenteric, retroperitoneal or periportal lymphadenopathy. Abdominal Wall and Mesentery: Unremarkable. Vasculature: The visualized abdominal aorta is normal in size and caliber. Evaluation of abdominal a nd pelvic vessels is limited due to lack of intravenous contrast. Pelvic Organs: Prominent 4.5 cm left adnexal mass. Consider pelvic ultrasound for further evaluation. Musculoskeletal: No aggressive focal bony lesions, acute fractures or dislocation. Soft tissues: Unremarkable IMPRESSION: 1. Punctate calculus right kidney no hydronephrosis 2. 7 cm right adnexal mass consider pelvic ultrasound for further evaluation. 3. No calcified gallstones 4. CT findings to suggest abnormal dilatation of the small bowel or colon., Radiation optimization: All CT scans at this facility use at least one of these dose optimization сергей hniques: automated exposure control mA and/or kV adjustment per patient size (includes targeted exam s where dose is matched to clinical indication) or iterative reconstruction.
[2025-01-14 17:00] VITALS: PULSE 77; RESP 16; O2SAT 100
[2025-01-14] MEDS ORDERED: ACETAMINOPHEN 325 MG TAB PO PRN (19:15)
[2025-01-14] MEDS ORDERED: ONDANSETRON HCL 4 MG/2 ML VIAL IV PRN (19:15)
[2025-01-14] MEDS ORDERED: DEXTROSE (50%) 50ML SYRG IV PRN (19:15)
[2025-01-14] MEDS: SODIUM CHL 0.9% 100 ML IV SCH (19:30)
[2025-01-14] MEDS: POTASSIUM CHL 20MEQ/50ML 50 ML IV SCH (19:40)
[2025-01-14] MEDS: cefTRIAXone 1GM/50ML D5W 50 ML IV ONE (20:11)
[2025-01-14] MEDS: POTASSIUM CHL 20 Meq TABLET PO ONE (20:11)
[2025-01-14 20:15] VITALS: PULSE 76; RESP 20; O2SAT 100
[2025-01-14] MEDS: ACCU-CHEK COMFORT CURVE STRIP VI SCH (22:00)
[2025-01-14] MEDS: CARVEDILOL 12.5 MG TAB PO SCH (22:00)
[2025-01-14] MEDS: SODIUM BICARBONATE 650 MG TAB PO SCH (22:49)
[2025-01-14] MEDS: ATORVASTATIN 20 MG TAB PO SCH (22:49)
[2025-01-14] MEDS: InsuLIN REG 1unit/0.01ml Soln (100units/ml) SC SCH (23:03)
--- NOTE | 2025-01-15 03:02 | DVHHP2 ---
History of Present Illness Reason for Visit: Nausea and vomiting History of Present Illness 44-year-old female presents for evaluation of nausea and vomiting. Patient reports a three day history of epigastric abdominal pain with associated nausea and vomiting. Denies fever or chills. No diarrhea. No other acute complaints reported. Past Medical History Chronic kidney disease, hypertension, diabetes mellitus Past Surgical History Family History Noncontributory Smoke: No ALCOHOL: none Drugs: None Lives: with Family Review of Systems Review of Systems Review of systems are currently negative otherwise addressed in HPI. Allergies: Coded Allergies: NO KNOWN ALLERGIES (Unverified , 11/23/24) Medications Current Medications Medications Dose Ordered Sig/Eileen Route Start Time Stop Time Status Last Admin Dose Admin Amlodipine Besylate 10 mg DAILY PO 01/15/25 10:00 Carvedilol 12.5 mg Q12HR PO 01/14/25 22:00 Atorvastatin Calcium 20 mg HS PO 01/14/25 22:00 01/14/25 22:49 20 MG Sodium Bicarbonate 650 mg BID PO 01/14/25 22:00 01/14/25 22:49 650 MG Ceftriaxone Sodium 50 ml @ 100 mls/hr DAILY@09 IV 01/15/25 09:00 Diagnostic Test (Pha) 1 strip ACHS 01/14/25 22:00 01/14/25 22:00 1 STRIP Insulin Human Regular ACHS SC 01/14/25 22:00 01/14/25 23:03 3 UNITS Dextrose 50 ml UD PRN IV 01/14/25 19:15 Ondansetron HCl 4 mg Q4HP PRN IV 01/14/25 19:15 Acetaminophen 650 mg Q6HP PRN PO 01/14/25 19:15 Empaglifozin 10 mg DAILY PO 01/15/25 10:00 UNV Exam Vital Signs Vital Signs Date Time Temp Pulse Resp B/P (MAP) Pulse Ox O2 Delivery O2 Flow Rate FiO2 01/15/25 00:25 76 16 95/52 (66) 100 01/14/25 20:15 Room Air* 0 21 01/14/25 19:35 98.4 98.4 Exam Gen: 44-year-old female in mild distress Skin: Warm, dry, normal color and texture, no rash. HEENT: Normocephalic atraumatic, mucous membranes moist and pink. Neck: Cervical and supraclavicular nodes normal without enlargement, trachea is midline, thyroid gland is normal without masses. Pulmonary: Clear to auscultation and percussion bilaterally. Cardiac: Regular rate and rhythm. No murmur Abdomen: Soft, nontender, nondistended, bowel sounds present all 4 quadrants, no guarding, no rigidity, no organomegaly. Extremities: No cyanosis, clubbing, no edema Neuro: Cranial nerves II through XII grossly intact, normal affect and speech, no focal motor deficits. Labs/Xrays ORDERING PHYSICIAN: ANNE CHIANG MD PROCEDURE(s): ABPL - CT AB PEL WO CON-NO ORAL OR IV REASON: upper abd pain n/v ORDER NUMBER(s): [id number], ACCESSION NUMBER(s): [id number] ADDENDUM ADDENDUM # 1 Impression: 1. Should read: No CT findings to suggest abnormal dilatation of small bowel or colon. ORIGINAL REPORT Exam: CT CT AB PEL WO CON-NO ORAL OR IV History: upper abd pain n/v Comparison Study: None available at time of dictation. TECHNIQUE: Multidetector CT of the abdomen was performed from lung bases to pubic symphysis. Imaging was performed without IV contrast. Axial, coronal and sagittal multiplanar reformats were obtained from the axial data set by the te chnologist. Radiation Dose Information: CT Dose: CTDI volume is 7.54 mGy. Dose-length product is 394.66 mGy*cm FINDINGS: Evaluation of solid organs is limited due to lack of intravenous contrast use. Findings: Lung Bases: No acute or significant lung base finding. Normal heart size. No pleural or pericardial effusion. Liver: The liver is normal in size. No focal lesions. Gallbladder and Biliary Tree: Unremarkable Spleen: Unremarkable Pancreas: The pancreas is grossly normal in appearance. Adrenal Glands: Unremarkable Kidneys: Punctate calculus right kidney no hydronephrosis Bladder: Grossly unremarkable for degree of distention. Bowel: The stomach is grossly normal in appearance. Small bowel and colon are normal in caliber and distribution. The appendix is not visualized; however, no secondary findings of acute appendicitis identified. Ascites: Absent Lymphadenopathy: No mesenteric, retroperitoneal or periportal lymphadenopathy. Abdominal Wall and Mesentery: Unremarkable. Vasculature: The visualized abdominal aorta is normal in size and caliber. Evaluation of abdominal and pelvic vessels is limited due to lack of intravenous contrast. Pelvic Organs: Prominent 4.5 cm left adnexal mass. Consider pelvic ultrasound for further evaluation. Musculoskeletal: No aggressive focal bony lesions, acute fractures or dislocation. Soft tissues: Unremarkable IMPRESSION: 1. Punctate calculus right kidney no hydronephrosis 2. 7 cm right adnexal mass consider pelvic ultrasound for further evaluation. 3. No calcified gallstones 4. CT findings to suggest abnormal dilatation of the small bowel or colon., Radiation optimization: All CT scans at this facility use at least one of these dose optimization techniques: automated exposure control mA and/or kV adjustment per patient size (includes targeted exams where dose is matched to clinical indication) or iterative reconstruction. ATED BY: NEWTON ALEXANDRE Jr. DO Labs Test 01/14/25 22:55 01/14/25 17:41 01/14/25 15:33 Range/Units POC Glucose 174 H 70-106 mg/dl Troponin I High Sensitivity 10 </=34 ng/L White Blood Count 19.9 H 4.4-10.8 10^3/uL Red Blood Count 3.82 L 4.0-5.20 10^6/uL Hemoglobin 11.9 L 12.2-16.2 g/dL Hematocrit 34.8 L 36.0-46.0 % Mean Corpuscular Volume 91.2 80.0-100.0 fL Mean Corpuscular Hemoglobin 31.1 28.0-32.0 pg Mean Corpuscular Hemoglobin Concent 34.1 32.0-36.0 g/dL Red Cell Distribution Width 12.7 11.8-14.3 % Platelet Count 359 140-450 10^3/uL Mean Platelet Volume 7.9 6.9-10.8 fL Neutrophils (%) (Auto) 85.0 H 37.0-80.0 % Lymphocytes (%) (Auto) 5.5 L 10.0-50.0 % Monocytes (%) (Auto) 9.3 0.0-12.0 % Eosinophils (%) (Auto) 0.1 0.0-7.0 % Basophils (%) (Auto) 0.1 0.0-2.0 % Neutrophils # (Auto) 16.9 H 1.6-8.6 10 ^3/uL Lymphocytes # (Auto) 1.1 0.4-5.4 10 ^3/uL Monocytes # (Auto) 1.8 H 0-1.3 10 ^3/uL Eosinophils # (Auto) 0 0-0.8 10 ^3/uL Basophils # (Auto) 0 0-0.2 10 ^3/uL Nucleated Red Blood Cells 0.0 % Sodium Level 132 L 136-145 mmol/L Potassium Level 2.9 L 3.5-5.1 mmol/L Chloride Level 82 L 98-107 mmol/L Carbon Dioxide Level 35 H 20-31 mmol/L Anion Gap 15 5-15 Blood Urea Nitrogen 53 H 9-23 mg/dL Creatinine 5.49 H 0.550-1.02 mg/dL Glomerular Filtration Rate Calc 9 >90 mL/min BUN/Creatinine Ratio 9.7 L 10.0-20.0 Serum Glucose 210 H 74-106 mg/dL Lactic Acid Level 1.8 0.4-2.0 mmol/L Calcium Level 8.4 L 8.7-10.4 mg/dL Total Bilirubin 0.8 0.2-1.0 mg/dL Aspartate Amino Transferase (AST) 11 L 13-40 U/L Alanine Aminotransferase (ALT) 13 7-40 U/L Alkaline Phosphatase 53 46-116 U/L B-Type Natriuretic Peptide 14.77 0-100 pg/mL Total Protein 6.4 5.7-8.2 g/dL Albumin 3.9 3.2-4.8 g/dL Lipase 65 H 12-53 U/L Beta HCG, Quantitative 0.9 L 1.5-4.2 mIU/mL Assessment/Plan Assessment/Plan Assessment Acute on chronic renal failure Leukocytosis Uncontrolled diabetes mellitus Hypertension Hypokalemia Plan Admit the patient to [facility] to the hospitalist Nephrology consultation Rocephin Resume home medications Replete electrolytes Continue treatment per orders. Plan discussed with: Patient My Orders Orders - MARCO A LEE Procedure Category Date Status Time *Dr. Audie Larsen CONS 01/14/25 Transmitted -[place] 19:06 Amlodipine Tablet PHA 01/15/25 In Process (Norvasc Tablet) 10:00 Carvedilol Tablet PHA 01/14/25 In Process (Coreg Tablet) 22:00 Atorvastatin (Lipitor) PHA 01/14/25 In Process 22:00 Sodium Bicarb Tab PHA 01/14/25 In Process 22:00 Blood Culture ANNA 01/14/25 In Process 19:06 Ceftriaxone 1gm/50ml PHA 01/15/25 In Process D5w (Rocephin) 09:00 Urinalysis LAB 01/14/25 Logged 19:06 Basic Metabolic Panel LAB 01/15/25 Logged 04:00 Glucose Blood PHA 01/14/25 In Process (Accu-Chek Comfort 22:00 Insulin R (Human) PHA 01/14/25 In Process (Insulin R) 22:00 Dextrose 50% Syringe PHA 01/14/25 In Process 19:15 Admit ADMIT 01/14/25 Transmitted 19:06 Renal DIET 01/15/25 Transmitted Standard(2gna,3gk,Lopho) Breakfast Ondansetron Hcl PHA 01/14/25 In Process (Zofran) 19:15 Complete Blood Count LAB 01/15/25 Logged 04:00 Condition: Stable SCOTTIE 01/14/25 In Process 19:06 Acetaminophen Tablet PHA 01/14/25 In Process (Tylenol Tablet) 19:15 Bedrest With Bathroom SCOTTIE 01/14/25 In Process Privileg 19:06 Empagliflozin PHA 01/15/25 Pending (Jardiance) 10:00 Date of Service: Jan 14, 2025 Billing Provider: MARCO A LEE Common Visit Codes: [id number] INP/OBS CARE (HIGH) MARCO A LEE Jan 15, 2025 03:02
[2025-01-15 05:11] LABS: Basophils # (auto) 0 10 ^3/uL (0-0.2); Basophils % (auto) 0.2 % (0.0-2.0); Eosinophils # (auto) 0.2 10 ^3/uL (0-0.8); Eosinophils % (auto) 1.3 % (0.0-7.0); Hemoglobin 10.7 g/dL (12.2-16.2); Lymphocytes % (auto) 16.3 % (10.0-50.0); Mean Corpuscular Hemoglobin 31.7 pg (28.0-32.0); Mean Corpuscular Hgb Conc. 34.6 g/dL (32.0-36.0); Mean Corpuscular Volume 91.6 fL (80.0-100.0); Monocytes # (auto) 1.4 10 ^3/uL (0-1.3); Monocytes % (auto) 11.6 % (0.0-12.0); Neutrophils # (auto) 8.5 10 ^3/uL (1.6-8.6); Neutrophils % (auto) 70.6 % (37.0-80.0); Platelet Count (auto) 308 10^3/uL (140-450); Red Blood Cells 3.38 10^6/uL (4.0-5.20); Red Cell Distribution Width 12.6 % (11.8-14.3); White Blood Cell 12.1 10^3/uL (4.4-10.8)
[2025-01-15 05:14] LABS: Anion Gap 10 (5-15); Chloride 89 mmol/L (98-107); Potassium 3.3 mmol/L (3.5-5.1); Sodium 134 mmol/L (136-145)
[2025-01-15 05:15] LABS: Calcium 8.1 mg/dL (8.7-10.4); Carbon Dioxide 35 mmol/L (20-31)
[2025-01-15 05:20] LABS: BUN/Creatinine Ratio 8.5 (10.0-20.0)
[2025-01-15 05:21] LABS: Blood Urea Nitrogen 47 mg/dL (9-23); Glucose 187 mg/dL (74-106)
[2025-01-15] MEDS: PANTOPRAZOLE 40 MG TAB PO SCH (06:54)
[2025-01-15 07:32] VITALS: PULSE 75; RESP 16; O2SAT 98
[2025-01-15] MEDS: POTASSIUM EFFERVESENT TAB 25 MEQ PO ONE (08:30)
[2025-01-15] MEDS ORDERED: EMPAGLIFLOZIN 10 MG TAB PO SCH (10:00)
[2025-01-15] MEDS: DOXYCYCLINE 100 MG TAB/CAP PO SCH (10:29)
[2025-01-15] MEDS: EMPAGLIFLOZIN 10 MG TAB PO SCH (10:32)
[2025-01-15] MEDS: cefTRIAXone 1GM/50ML D5W 50 ML IV SCH (10:33)
[2025-01-15] MEDS: amLODIPine BESYLATE 5 MG TAB PO SCH (10:33)
[2025-01-15 10:45] LABS: Base Excess 8.7 mmol/L (-2.0-3.0)
--- NOTE | 2025-01-15 10:45 | ECG ---
[facility] Test Date: 2025-01-14 Test Time: 14:33:01 Pat Name: NEIL LEA Department: ED Room: 0207 Gender: F Hospitalist Program Director: JOSIE : 1980 Requested By: ANNE VERNON Order Number: [id number] Reading MD: Marlon Malloy Measurements Intervals [place] Rate: 87 P: -1 FL: 119 QRS: 69 QRSD: 80 T: 48 QT: 461 QTc: 555 Interpretive Statements Sinus rhythm Borderline short FL interval Prolonged QT interval Baseline wander in lead(s) V6 Electronically Signed On 01-18-2025 12:50:22 PDT by Marlon Malloy Please click the below link to view image of tracing.
[2025-01-15 11:00] VITALS: BP 150/77; PULSE 75; PULSE 78; RESP 18; RESP 20; RESP 98; TEMP 96.9; O2SAT 98
--- NOTE | 2025-01-15 11:22 | DVH ---
CLINICAL HISTORY: Right adnexal mass. COMPARISON: Correlation made to CT of the abdomen and pelvis dated 01/14/2025 TECHNIQUE: Transvaginal grayscale sonographic imaging of the uterus and ovaries was performed, timo juan pablo by color Doppler technique. Duplex Doppler ultrasound of both ovaries was also performed. FINDINGS: The uterus measures 6.4 x 3.5 x 3.5 cm. There is heterogeneous echogenicity. Endometrial th ickness measures 0.4 cm, within normal limits. Right ovary measures 2.6 x 2.5 x 2.6 cm. Arterial and venous blood flow demonstrated. Right adnexal c omplex hypoechoic mass measures 8.1 x 4.7 x 7.7 cm with internal echogenic component, possibly due to calcification, although not correlated on recent CT exam. Some vascular flow along the periphery of the mass involving the echogenic area. Left ovary measures 5.1 x 1.7 x 2.9 cm. Arterial and venous blood flow demonstrated. Dominant follicl e/ simple cyst in the left ovary measures 1.1 cm. IMPRESSION: 1. Right ovarian mass as described above. Differential considerations include a complex cystic mass, including hemorrhagic cyst or neoplasm. Recommend pelvic MRI without and with contrast to further uche luate. 2. Additional findings as described above
[2025-01-15 11:47] VITALS: BP 150/77; PULSE 75; PULSE 78; RESP 20; RESP 98; TEMP 96.9; O2SAT 98
--- NOTE | 2025-01-15 14:04 | DVHPNRES ---
Progress Note Date Seen: Jan 15, 2025 Resident Creating Document: JOSE ENRIQUE SANTANA RESIDENT Medical Necessity Reason Pt with a Central, PICC or Fol: No Subjective Review of Systems This is a 44-year-old female with past medical history of hypertension, chronic kidney disease, type 2 diabetes mellitus presented to the ED with a chief complaint of epigastric pain, nausea and vomiting for 1 day prior to this admission. Patient states that 1 day ago she was discharged from [facility] and was admitted for the same complaint with epigastric pain nausea and vomiting and was treated conservatively. she denied chills, fever, loss of weight, altered bowel habit, hematuria, hematemesis, chest pain, shortness of breath, blurred vision, or any change in bowel and bladder habit. patient was seen and examined on the bedside. alert oriented x3. complaint of nausea and abdominal pain. no other active complaint Constitutional: No: Fever, Chills, Sweats, Weakness, Malaise, Other Eyes: No: Pain, Vision change, Conjunctivae inflammation, Eyelid inflammation, Other, Redness ENT: No: Ear pain, Ear discharge, Nose pain, Nose discharge, Nose congestion, Mouth pain, Mouth swelling, Throat pain, Throat swelling, Other Respiratory: Shortness of breath, improving No: Cough, Dry,Wheezing, Hemoptysis, Pleuritic Pain, Sputum, Wheezing, Other Cardiovascular: No: Chest Pain, Palpitations, Orthopnea, Paroxysmal Noc. Dyspnea, Edema, Lt Headedness, Other Gastrointestinal: Nausea, Vomiting, Abdominal Pain, No Diarrhea, Constipation, Melena, Hematochezia, Other Musculoskeletal: No: other, neck pain, shoulder pain, arm pain, back pain, hand pain, leg pain, foot pain Neurological:; No: Weakness, Numbness, Incoordination, Change in speech, Confusion, Seizures Objective vital signs Vital Sign Date Time Temp Pulse Resp B/P (MAP) Pulse Ox O2 Delivery O2 Flow Rate FiO2 01/15/25 11:47 75 98 98 Room Air* 0 21 01/15/25 11:47 96.9 150/77 (101) 96.9 Total Intake and Output 01/14/25 01/14/25 01/15/25 15:00 23:00 07:00 Intake Total 2150 ml Balance 2150 ml medications Current Medications Medications Dose Ordered Sig/Eileen Route Start Time Stop Time Status Last Admin Dose Admin Amlodipine Besylate 10 mg DAILY PO 01/15/25 10:00 01/15/25 10:33 10 MG Carvedilol 12.5 mg Q12HR PO 01/14/25 22:00 01/15/25 10:32 12.5 MG Atorvastatin Calcium 20 mg HS PO 01/14/25 22:00 01/14/25 22:49 20 MG Sodium Bicarbonate 650 mg BID PO 01/14/25 22:00 01/15/25 10:33 650 MG Ceftriaxone Sodium 50 ml @ 100 mls/hr DAILY@09 IV 01/15/25 09:00 01/15/25 10:33 100 MLS/HR Diagnostic Test (Pha) 1 strip ACHS 01/14/25 22:00 01/15/25 13:01 1 STRIP Insulin Human Regular ACHS SC 01/14/25 22:00 01/15/25 13:13 3 UNITS Dextrose 50 ml UD PRN IV 01/14/25 19:15 Ondansetron HCl 4 mg Q4HP PRN IV 01/14/25 19:15 Acetaminophen 650 mg Q6HP PRN PO 01/14/25 19:15 Empaglifozin 10 mg DAILY PO 01/15/25 10:00 01/15/25 10:32 10 MG Pantoprazole Sodium 40 mg DAILY@0600 PO 01/15/25 06:00 01/15/25 06:54 40 MG Doxycycline Monohydrate 100 mg Q12HR PO 01/15/25 10:00 01/15/25 10:29 100 MG Examination Physical examination: General Appearance: Alert, Oriented X3, Cooperative, No acute distress HEENT: Atraumatic, PERRLA, EOMI, Mucous membrane moist/pink Respiratory: Clear to auscultation, Normal air movement Cardiovascular: Regular rate, Normal S1, Normal S2, No murmurs, no chest wall tenderness Abdominal: Normal bowel sounds, Soft, mild tenderness, No hepatospenomegaly, No masses Extremities: No clubbing, No cyanosis, No edema, Normal pulses, No tenderness/swelling Skin: No rashes, No breakdown, No significant lesion Neuro: Normal gait, Normal speech, Strength at 5/5 X4 ext, Normal tone, Sensation intact, grossly intact cranial nerves. Psych/Mental Status: Mental status NL, Mood NL laboratory and microbiology Laboratory Tests 01/15/25 04:47 Test 01/15/25 04:47 Range/Units Serum Glucose 187 H 74-106 mg/dL Labs and/or images reviewed: Labs reviewed by me, Image(s) reviewed by me Problem List/Assessment/Plan Problem List/Assessment/Plan Assessment and plan: # Intractable abdominal pain likely due to PID # Possible ovarian mass # Possible tubo-ovarian abscess # Leukocytosis likely due to above # Right renal calculus without hydronephrosis # Ruled out pancreatitis - CT abdomen pelvis without contrast demonstrated punctate calculus right kidney no hydronephrosis, 7 cm right adnexal mass. - Ultrasound of the pelvis demonstrated right ovarian mass 8.1 x 4.7 x 7.7 cm with internal echogenic component possibly due to calcification - Ordered CA 125, CA 27-29, CA 19-9 - Lipase is 65 - 2 L IV bolus normal saline given - IV ceftriaxone 1 g daily and IV doxycycline 100 mg b.i.d. - IV ondansetron 4 mg q.4 PRN. - Pending urinalysis - Consulted OBGYN # Metabolic alkalosis with respiratory compensation likely due to intractable vomiting - Sodium bicarb 650 mg p.o. b.i.d. # KATE on CKD likely hemodynamically mediated /VMN - BUN/creatinine, 47/5.51 - Avoid nephrotoxic medication - Consulted nephrology # Possible subclinical hyperthyroidism - TSH is low - Ordered T3 and T4 # Hypokalemia - Replenished # Type 2 diabetes mellitus, hemoglobin A1c 6.1 - Mild sliding scale of insulin and Jardiance 10 mg po daily # Hypertensive heart disease - Amlodipine 10 mg daily and carvedilol 12.5 mg b.i.d. - Atorvastatin 20 mg at HS # PUD prophylaxis - Protonix 40 mg p.o. daily # DVT prophylaxis - Heparin 5000 units sc b.i.d. Goal of care discussed with the patient for more than 20 minutes full code Plan discussed with Dr. Boyer Plan discussed with: Patient, Other My Orders My Orders Orders - JOSE ENRIQUE SANTANA RESIDENT Procedure Category Date Status Time Pelvic US 01/15/25 Resulted 08:20 Communication Order ORDERS 01/15/25 Transmitted 08:22 Ca 125 (Serial) LAB 01/15/25 In Process 08:25 Ca 27.29 LAB 01/15/25 In Process 08:25 Carbohydrate Antigen LAB 4/20/25 In Process 19-9 08:25 Mrsa Screen ANNA 01/15/25 Uncollected 08:33 Doxycycline Tablet PHA 01/15/25 In Process (Vibramycin Tablet) 10:00 Abg W/ Co-Ox RT 01/15/25 Logged 08:45 *Dr. Audie Larsen CONS 01/15/25 Transmitted -[place] 10:19 *Dr. Jessica Larsen -Da CONS 01/15/25 Transmitted [place] 11:14 Free T3 LAB 01/15/25 In Process 11:17 Free T4 (Free LAB 01/15/25 In Process Thyroxine) 11:17 Date of Service: Jan 15, 2025 Billing Provider: RODRIGO BOYER MD Common Visit Codes: [id number] INP/OBS CARE(HIGH) ZACHARIAH SANTANARA RESIDENT Jan 15, 2025 14:04 RODRIGO BOYER MD Jan 16, 2025 11:32
[2025-01-15 15:40] LABS: Urine Bacteria FEW /hpf (None Seen); Urine Blood TRACE /uL (Negative); Urine Clarity Clear (Clear); Urine Color Light-Yellow (Yellow); Urine Protein, UAD 3+ (Negative); Urine Specific Gravity 1.013 (1.001-1.035); Urine Squamous Epithelial Cell FEW /hpf (<5); Urine Urobilinogen Normal (Negative); Urine WBC 3 /HPF (0-5)
[2025-01-15 17:15] VITALS: BP 118/69; PULSE 76; RESP 18; TEMP 98.8; O2SAT 98
--- NOTE | 2025-01-15 17:32 | DVHINCON2 ---
Date of service: Jan 15, [address]Vivian Boyer Reason for Consultation Elevated creatinine History of Present Illness This is a 44-year-old female with history of Chronic kidney disease stage 3b/4 secondary to diabetic nephropathy who presented to the emergency room complainin g of nausea and vomiting. Patient had a recent hospitalization at [facility] status post fall. Patient was noted to be in acute kidney injury at that time. On discharge her creatinine was 3.9. Patient says that she has been experiencing nausea and vomiting since Thursday. Denies abdominal pain. Denies diarrhea. Initial evaluation in the emergency room included a CT of the abdomen and pelvis which showed evidence of right adnexal mass and right kidney punctate calcification. Underwent ultrasound of the pelvis. Finding of right ovarian mass with the differential including complex cystic mass, hemorrhagic cyst or neoplasm. Pelvic MRI has been recommended. Nephrology has been consulted because of elevated creatinine. Past Medical History Chronic kidney disease stage IIIB Type 2 diabetes with nephropathy Hypertension Obesity Past Surgical History Family History: Diabetes mellitus G8 FATHER FH: cancer G8 MOTHER Family History No history of kidney disease Social History No active history of smoking, alcohol or drug abuse Allergies: Coded Allergies: NO KNOWN ALLERGIES (Unverified , 11/23/24) Home Meds Reported Medications Sodium Bicarbonate (Sodium Bicarbonate) 650 Mg Tab, 1 TAB PO BID 11/26/24 Aspirin (Aspirin Low Dose) 81 Mg Tab, 1 DAILY 11/26/24 Lisinopril (Lisinopril) 10 Mg Tab, 1 TAB PO 11/26/24 Atorvastatin Calcium (ATORVASTATIN CALCIUM) 10 Mg Tab, 1 DAILY 11/26/24 Semaglutide (Ozempic) 4 Mg/3 Ml Inj 11/26/24 Insulin Glargine (Lantus) 100 Unit/Ml Inj, SC 11/26/24 Current Medications Current Medications Medications (Trade) Dose Ordered Sig/Eileen Route PRN Reason Start Time Stop Time Status Last Admin Potassium Chloride 50 ml @ 25 mls/hr Q2H IV 01/14/25 18:15 01/14/25 22:14 DC 01/14/25 20:15 Sodium Chloride 100 ml @ 50 mls/hr Q2H IV 01/14/25 18:30 01/14/25 22:29 DC 01/14/25 20:50 Amlodipine Besylate (Norvasc Tablet) 10 mg DAILY PO 01/15/25 10:00 01/15/25 10:33 Carvedilol (Coreg Tablet) 12.5 mg Q12HR PO 01/14/25 22:00 01/15/25 10:32 Atorvastatin Calcium (Lipitor) 20 mg HS PO 01/14/25 22:00 01/14/25 22:49 Sodium Bicarbonate 650 mg BID PO 01/14/25 22:00 01/15/25 16:49 DC 01/15/25 10:33 Empaglifozin (Jardiance) 10 mg DAILY PO 01/15/25 10:00 01/14/25 19:26 DC Ceftriaxone Sodium 50 ml @ 100 mls/hr DAILY@09 IV 01/15/25 09:00 01/15/25 10:33 Diagnostic Test (Pha) (Accu-Chek Comfort Curve T) 1 strip ACHS 01/14/25 22:00 01/15/25 16:41 Insulin Human Regular (InsuLIN R) ACHS SC 01/14/25 22:00 01/15/25 16:35 Dextrose 50 ml UD PRN IV Blood Sugar LESS THAN 60 01/14/25 19:15 Ondansetron HCl (Zofran) 4 mg Q4HP PRN IV NAUSEA / VOMITING 01/14/25 19:15 Acetaminophen (Tylenol Tablet) 650 mg Q6HP PRN PO PAIN SCALE 1-3 OR TEMP>100.4 01/14/25 19:15 Empaglifozin (Jardiance) 10 mg DAILY PO 01/15/25 10:00 01/15/25 16:49 DC 01/15/25 10:32 Pantoprazole Sodium (Protonix Tablet) 40 mg DAILY@0600 PO 01/15/25 06:00 01/15/25 06:54 Doxycycline Monohydrate (Vibramycin Tablet) 100 mg Q12HR PO 01/15/25 10:00 01/15/25 10:29 Heparin Sodium (Porcine) 5,000 units Q12HR SC 01/15/25 22:00 Review of Systems 12 point review of system negative except as stated in the HPI Vital Signs Vital Signs Date Time Temp Pulse Resp B/P (MAP) Pulse Ox O2 Delivery O2 Flow Rate FiO2 01/15/25 11:47 75 98 98 Room Air* 0 21 01/15/25 11:47 96.9 150/77 (101) 96.9 Physical Exam Gen: In no acute distress Skin: Warm, dry, normal color and texture, no rash. HEENT: Normocephalic atraumatic, mucous membranes moist and pink. Neck: Cervical and supraclavicular nodes normal without enlargement, trachea is midline, thyroid gland is normal without masses. Pulmonary: Clear to auscultation and percussion bilaterally. Cardiac: Regular rate and rhythm. No murmur Abdomen: Soft, nontender, nondistended, bowel sounds present all 4 quadrants, no guarding, no rigidity, no organomegaly. Extremities: No cyanosis, clubbing, no edema Neuro: Cranial nerves II through XII grossly intact, normal affect and speech, no focal motor deficits. Labs/Diagnostic Data Labs Test 01/15/25 16:31 01/15/25 14:40 01/15/25 10:38 01/15/25 08:41 Range/Units POC Glucose 219 H 70-106 mg/dl Urine Color Light-yellow Yellow Urine Clarity Clear Clear Urine pH 7.0 5.0-9.0 Urine Specific [place] 1.013 1.001-1.035 Urine Protein 3+ H Negative Urine Ketones Negative Negative Urine Blood Trace H Negative /uL Urine Nitrite Negative Negative Urine Bilirubin Negative Negative Urine Urobilinogen Normal Negative mg/dL Urine Leukocyte Esterase Negative Negative /uL Urine RBC <1 0 - 4 /hpf Urine Microscopic WBC 3 0-5 /HPF Urine Squamous Epithelial Cells Few <5 /hpf Urine Bacteria Few H None Seen /hpf Urine Glucose 3+ H Normal mg/dL Blood Gas Specimen Type Arterial Blood Gas Sample Site Right radial Blood Gas Patient Temperature 37.0 Arterial Blood Date Drawn [id number] Arterial Blood pH 7.520 H 7.350-7.450 Arterial Blood Partial Pressure CO2 40.5 32.0-45.0 mmHg Arterial Blood Partial Pressure O2 79.3 L 83.0-108.0 mmHg Arterial Blood HCO3 32.3 H 21.0-28.0 mmol/L Arterial Blood Oxygen Saturation 94.7 94.0-98.0 % Arterial Blood Base Excess 8.7 H -2.0-3.0 mmol/L Arterial Blood Oxyhemoglobin 94.4 94.0-98.0 % Arterial Blood Carboxyhemoglobin 0.0 L 0.5-1.5 % Arterial Blood Methemoglobin 0.3 0.0-1.5 % Davey Test Yes Blood Gas Total Hemoglobin 10.90 L 12.0-16.0 g/dL Blood Gas Modality Room air FiO2 % 21.0 Test 01/15/25 08:30 01/15/25 04:47 01/14/25 17:41 01/14/25 15:33 Range/Units White Blood Count 12.1 #H 4.4-10.8 10^3/uL Red Blood Count 3.38 L 4.0-5.20 10^6/uL Hemoglobin 10.7 L 12.2-16.2 g/dL Hematocrit 31.0 #L 36.0-46.0 % Mean Corpuscular Volume 91.6 80.0-100.0 fL Mean Corpuscular Hemoglobin 31.7 28.0-32.0 pg Mean Corpuscular Hemoglobin Concent 34.6 32.0-36.0 g/dL Red Cell Distribution Width 12.6 11.8-14.3 % Platelet Count 308 140-450 10^3/uL Mean Platelet Volume 7.6 6.9-10.8 fL Neutrophils (%) (Auto) 70.6 37.0-80.0 % Lymphocytes (%) (Auto) 16.3 10.0-50.0 % Monocytes (%) (Auto) 11.6 0.0-12.0 % Eosinophils (%) (Auto) 1.3 0.0-7.0 % Basophils (%) (Auto) 0.2 0.0-2.0 % Neutrophils # (Auto) 8.5 1.6-8.6 10 ^3/uL Lymphocytes # (Auto) 2.0 0.4-5.4 10 ^3/uL Monocytes # (Auto) 1.4 H 0-1.3 10 ^3/uL Eosinophils # (Auto) 0.2 0-0.8 10 ^3/uL Basophils # (Auto) 0 0-0.2 10 ^3/uL Nucleated Red Blood Cells 0.0 % Sodium Level 134 L 136-145 mmol/L Potassium Level 3.3 L 3.5-5.1 mmol/L Chloride Level 89 L 98-107 mmol/L Carbon Dioxide Level 35 H 20-31 mmol/L Anion Gap 10 5-15 Blood Urea Nitrogen 47 H 9-23 mg/dL Creatinine 5.51 H 0.550-1.02 mg/dL Glomerular Filtration Rate Calc 9 >90 mL/min BUN/Creatinine Ratio 8.5 L 10.0-20.0 Serum Glucose 187 H 74-106 mg/dL Hemoglobin A1c 6.1 H <5.7 % A1C Calcium Level 8.1 L 8.7-10.4 mg/dL Magnesium Level 2.1 1.6-2.6 mg/dL Thyroid Stimulating Hormone (TSH) 0.21 L 0.55-4.78 uIU/mL Troponin I High Sensitivity 10 </=34 ng/L Lactic Acid Level 1.8 0.4-2.0 mmol/L Total Bilirubin 0.8 0.2-1.0 mg/dL Aspartate Amino Transferase (AST) 11 L 13-40 U/L Alanine Aminotransferase (ALT) 13 7-40 U/L Alkaline Phosphatase 53 46-116 U/L B-Type Natriuretic Peptide 14.77 0-100 pg/mL Total Protein 6.4 5.7-8.2 g/dL Albumin 3.9 3.2-4.8 g/dL Lipase 65 H 12-53 U/L Beta HCG, Quantitative 0.9 L 1.5-4.2 mIU/mL Assessment Acute kidney injury superimposed on Chronic kidney disease stage IIIB Persistent nausea and vomiting Right adnexal mass which is being worked up Type 2 diabetes with nephropathy Hypertension Obesity Hypokalemia Plan/Recommendation Continue with IV hydration. Hold off on Jardiance. Patient also has discontinued her Ozempic. Last dose was about three weeks ago. Discontinue sodium bicarbonate. Strict I's and O's. Labs in a.m.. Plan discussed with: Patient NEELAM BARRAZA MD Jan 15, 2025 17:32
[2025-01-15] MEDS: SODIUM CHLORIDE 0.9% 1,000 ML IV SCH (18:33)
[2025-01-15 21:00] VITALS: BP 127/68; PULSE 79; RESP 18; TEMP 97.6; O2SAT 98
[2025-01-15] MEDS: HEPARIN SODIUM (PORCINE) 5000 UNITS/ML 1ML VIAL SC SCH (21:26)
[2025-01-16] VITALS (9 sets, daily range): BP systolic 116–131; BP diastolic 68–79; PULSE 75–82; RESP 16–19; TEMP 97.5–98.3; O2SAT 92–99
[2025-01-16 06:18] LABS: Basophils # (auto) 0 10 ^3/uL (0-0.2); Basophils % (auto) 0.2 % (0.0-2.0); Eosinophils # (auto) 0.4 10 ^3/uL (0-0.8); Eosinophils % (auto) 3.4 % (0.0-7.0); Hematocrit 27.6 % (36.0-46.0); Hemoglobin 9.8 g/dL (12.2-16.2); Lymphocytes # (auto) 1.8 10 ^3/uL (0.4-5.4); Lymphocytes % (auto) 15.3 % (10.0-50.0); Mean Corpuscular Hemoglobin 32.1 pg (28.0-32.0); Mean Corpuscular Hgb Conc. 35.4 g/dL (32.0-36.0); Mean Corpuscular Volume 90.8 fL (80.0-100.0); Monocytes # (auto) 1.1 10 ^3/uL (0-1.3); Monocytes % (auto) 9.8 % (0.0-12.0); Neutrophils # (auto) 8.2 10 ^3/uL (1.6-8.6); Neutrophils % (auto) 71.3 % (37.0-80.0); Platelet Count (auto) 259 10^3/uL (140-450); Red Blood Cells 3.05 10^6/uL (4.0-5.20); Red Cell Distribution Width 12.3 % (11.8-14.3); White Blood Cell 11.5 10^3/uL (4.4-10.8)
[2025-01-16 06:23] LABS: Anion Gap 10 (5-15)
[2025-01-16 06:39] LABS: Blood Urea Nitrogen 52 mg/dL (9-23); Calcium 7.5 mg/dL (8.7-10.4); Carbon Dioxide 32 mmol/L (20-31); Chloride 89 mmol/L (98-107); Glucose 148 mg/dL (74-106); Potassium 3.1 mmol/L (3.5-5.1); Sodium 131 mmol/L (136-145)
[2025-01-16] MEDS: POTASSIUM CHL 20 Meq TABLET PO ONE (09:14)
[2025-01-16 11:24] LABS: Free T3 2.91 pg/mL (2.3-4.2)
[2025-01-16 11:36] LABS: Free T4 (Free Thyroxine) 2.46 ng/dL (0.89-1.76)
--- NOTE | 2025-01-16 12:11 | DVHINCON2 ---
DATE OF CONSULTATION: 01/16/2025 REASON FOR CONSULTATION: Adnexal mass. HISTORY OF PRESENT ILLNESS: The patient is a 44-year-old 2, para 2, 0, 0, 2, admitted for nausea, vomiting, and abdominal pain. The patient has an extensive history of diabetes, somewhat uncontrolled hypertension, and renal disease. The patient had a CT which revealed adnexal mass. Ultrasound confirmed this mass, which is 8 x 4.7 x 7.7 cm. The patient denies having any abnormal urine, bleeding, or pain. Her last mammogram and Pap was in 2023. PAST MEDICAL HISTORY: Diabetes, chronic renal disease, and hypertension. PAST SURGICAL HISTORY: section. SOCIAL HISTORY: None. FAMILY HISTORY: None. 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 REVIEW OF SYSTEMS: Consistent with HPI. PHYSICAL EXAMINATION: HEENT: Within normal limits. CARDIOVASCULAR: Regular rate and rhythm. LUNGS: Clear to auscultation. BREASTS: Symmetrical. No masses. ABDOMEN: Soft and nontender. PELVIC: External genitalia within normal limits. Vagina: Normal. Cervix grossly normal. Uterus: 7 weeks' size. Adnexa, nontender. Adnexal fullness palpated on the right side. EXTREMITIES: No clubbing, cyanosis, or edema. IMPRESSION: Right adnexal mass. RECOMMENDATION: Obtain CA-125 MRI. We will follow. Thank you for this consultation. DO GIOVANNI Hernandez TID: [id number] RECEIPT: [id number]
--- NOTE | 2025-01-16 15:41 | DVHPNRES ---
Progress Note Date Seen: Jan 16, 2025 Resident Creating Document: JOSE ENRIQUE SANTANA RESIDENT Medical Necessity Reason Pt with a Central, PICC or Fol: No Objective vital signs Vital Sign Date Time Temp Pulse Resp B/P (MAP) Pulse Ox O2 Delivery O2 Flow Rate FiO2 01/16/25 13:00 97.8 78 18 131/73 (92) 99 97.8 01/16/25 10:45 Room Air* 0 21 Total Intake and Output 01/15/25 01/15/25 01/16/25 15:00 23:00 07:00 Intake Total 0 ml 1725 ml Balance 0 ml 1725 ml medications Current Medications Medications Dose Ordered Sig/Eileen Route Start Time Stop Time Status Last Admin Dose Admin Amlodipine Besylate 10 mg DAILY PO 01/15/25 10:00 01/16/25 08:59 10 MG Carvedilol 12.5 mg Q12HR PO 01/14/25 22:00 01/16/25 08:57 12.5 MG Atorvastatin Calcium 20 mg HS PO 01/14/25 22:00 01/15/25 21:29 20 MG Ceftriaxone Sodium 50 ml @ 100 mls/hr DAILY@09 IV 01/15/25 09:00 01/16/25 08:52 100 MLS/HR Diagnostic Test (Pha) 1 strip ACHS 01/14/25 22:00 01/16/25 11:30 1 STRIP Insulin Human Regular ACHS SC 01/14/25 22:00 01/16/25 12:47 3 UNITS Dextrose 50 ml UD PRN IV 01/14/25 19:15 Ondansetron HCl 4 mg Q4HP PRN IV 01/14/25 19:15 Acetaminophen 650 mg Q6HP PRN PO 01/14/25 19:15 Pantoprazole Sodium 40 mg DAILY@0600 PO 01/15/25 06:00 01/16/25 05:48 40 MG Doxycycline Monohydrate 100 mg Q12HR PO 01/15/25 10:00 01/16/25 08:52 100 MG Heparin Sodium (Porcine) 5,000 units Q12HR SC 01/15/25 22:00 01/16/25 09:25 5,000 UNITS Sodium Chloride 1,000 ml @ 100 mls/hr Q10H IV 01/15/25 18:15 01/16/25 15:09 100 MLS/HR laboratory and microbiology Laboratory Tests 01/16/25 05:24 Test 01/16/25 05:24 Range/Units Serum Glucose 148 H 74-106 mg/dL Microbiology Date/Time Source Procedure Growth Status 01/14/25 19:50 Blood Blood Culture - Preliminary NO GROWTH AFTER 24 HOURS OF INCUBATION. Resulted Problem List/Assessment/Plan Problem List/Assessment/Plan Assessment and plan: # Intractable abdominal pain likely due to PID # Possible ovarian mass # Possible tubo-ovarian abscess # Leukocytosis likely due to above # Right renal calculus without hydronephrosis # Ruled out pancreatitis - CT abdomen pelvis without contrast demonstrated punctate calculus right kidney no hydronephrosis, 7 cm right adnexal mass. - Ultrasound of the pelvis demonstrated right ovarian mass 8.1 x 4.7 x 7.7 cm with internal echogenic component possibly due to calcification - Ordered CA 125, CA 27-29, CA 19-9 - Lipase is 65 - 2 L IV bolus normal saline given - IV ceftriaxone 1 g daily and IV doxycycline 100 mg b.i.d. - IV ondansetron 4 mg q.4 PRN. - Pending urinalysis - Consulted OBGYN # Metabolic alkalosis with respiratory compensation likely due to intractable vomiting - Sodium bicarb 650 mg p.o. b.i.d. # KATE on CKD likely hemodynamically mediated /VMN - BUN/creatinine, 47/5.51 - Avoid nephrotoxic medication - Consulted nephrology # Possible subclinical hyperthyroidism - TSH is low - Ordered T3 and T4 # Hypokalemia - Replenished # Type 2 diabetes mellitus, hemoglobin A1c 6.1 - Mild sliding scale of insulin and Jardiance 10 mg po daily # Hypertensive heart disease - Amlodipine 10 mg daily and carvedilol 12.5 mg b.i.d. - Atorvastatin 20 mg at HS # PUD prophylaxis - Protonix 40 mg p.o. daily # DVT prophylaxis - Heparin 5000 units sc b.i.d. Goal of care discussed with the patient for more than 20 minutes full code Plan discussed [facility] Jan 16, 2025 15:41
--- NOTE | 2025-01-16 17:48 | DVHPN2 ---
Progress Note - Dictate Date Seen: Jan 16, 2025 Medical Necessity Reason Pt with a Central, PICC or Fol: No Subjective No new complaints vital signs Vital Sign Date Time Temp Pulse Resp B/P (MAP) Pulse Ox O2 Delivery O2 Flow Rate FiO2 01/16/25 17:00 97.7 75 18 125/73 (90) 96 97.7 01/16/25 10:45 Room Air* 0 21 Total Intake and Output 01/15/25 01/15/25 01/16/25 15:00 23:00 07:00 Intake Total 0 ml 1725 ml Balance 0 ml 1725 ml medications Current Medications Medications Dose Ordered Sig/Eileen Route Start Time Stop Time Status Last Admin Dose Admin Amlodipine Besylate 10 mg DAILY PO 01/15/25 10:00 01/16/25 08:59 10 MG Carvedilol 12.5 mg Q12HR PO 01/14/25 22:00 01/16/25 08:57 12.5 MG Atorvastatin Calcium 20 mg HS PO 01/14/25 22:00 01/15/25 21:29 20 MG Ceftriaxone Sodium 50 ml @ 100 mls/hr DAILY@09 IV 01/15/25 09:00 01/16/25 08:52 100 MLS/HR Diagnostic Test (Pha) 1 strip ACHS 01/14/25 22:00 01/16/25 11:30 1 STRIP Insulin Human Regular ACHS SC 01/14/25 22:00 01/16/25 12:47 3 UNITS Dextrose 50 ml UD PRN IV 01/14/25 19:15 Ondansetron HCl 4 mg Q4HP PRN IV 01/14/25 19:15 Acetaminophen 650 mg Q6HP PRN PO 01/14/25 19:15 Pantoprazole Sodium 40 mg DAILY@0600 PO 01/15/25 06:00 01/16/25 05:48 40 MG Doxycycline Monohydrate 100 mg Q12HR PO 01/15/25 10:00 01/16/25 08:52 100 MG Heparin Sodium (Porcine) 5,000 units Q12HR SC 01/15/25 22:00 01/16/25 09:25 5,000 UNITS Sodium Chloride 1,000 ml @ 100 mls/hr Q10H IV 01/15/25 18:15 01/16/25 15:09 100 MLS/HR objective Gen: In no acute distress Skin: Warm, dry, normal color and texture, no rash. HEENT: Normocephalic atraumatic, mucous membranes moist and pink. Neck: Cervical and supraclavicular nodes normal without enlargement, trachea is midline, thyroid gland is normal without masses. Pulmonary: Clear to auscultation and percussion bilaterally. Cardiac: Regular rate and rhythm. No murmur Abdomen: Soft, nontender, nondistended, bowel sounds present all 4 quadrants, no guarding, no rigidity, no organomegaly. Extremities: No cyanosis, clubbing, no edema Neuro: Cranial nerves II through XII grossly intact, normal affect and speech, no focal motor deficits. laboratory and microbiology Laboratory Tests 01/16/25 05:24 Test 01/16/25 05:24 Range/Units Serum Glucose 148 H 74-106 mg/dL Problem List Acute kidney injury, likely ATN, urine output not being quantified Chronic kidney disease stage IIIB Persistent nausea and vomiting Right adnexal mass which is being worked up Type 2 diabetes with nephropathy Hypertension Obesity Hypokalemia Plan/Recommendation IVF with NS drip IV Bumex 3 mg x1 Hold off on Jardiance. Patient also has discontinued her Ozempic. Last dose was about three weeks ago. Discontinue sodium bicarbonate. Strict I's and O's. Daily BMP No need for TICKET MARKER at this point Plan discussed with: Patient PATTI KLEIN MD Jan 16, 2025 17:48
[2025-01-16] MEDS: BUMETANIDE 2.5mg/10ml (0.25 mg/ml) INJ IV ONE (18:03)
--- NOTE | 2025-01-16 18:44 | DVHDSRES ---
Discharge Summary Date of Admission Resident Creating Document: JOSE ENRIQUE SANTANA RESIDENT Jan 14, 2025 at 19:06 Date of Discharge: Jan 18, 2025 Admitting Diagnosis Intractable abdominal pain likely due to PID Wounds: No wound was present. Labs/Diagnostic Data: Laboratory Results Test 01/16/25 16:57 01/16/25 05:24 01/15/25 14:40 01/15/25 10:38 POC Glucose 152 mg/dl (70-106) White Blood Count 11.5 10^3/uL (4.4-10.8) Red Blood Count 3.05 10^6/uL (4.0-5.20) Hemoglobin 9.8 g/dL (12.2-16.2) Hematocrit 27.6 % (36.0-46.0) Mean Corpuscular Volume 90.8 fL (80.0-100.0) Mean Corpuscular Hemoglobin 32.1 pg (28.0-32.0) Mean Corpuscular Hemoglobin Concent 35.4 g/dL (32.0-36.0) Red Cell Distribution Width 12.3 % (11.8-14.3) Platelet Count 259 10^3/uL (140-450) Mean Platelet Volume 8.2 fL (6.9-10.8) Neutrophils (%) (Auto) 71.3 % (37.0-80.0) Lymphocytes (%) (Auto) 15.3 % (10.0-50.0) Monocytes (%) (Auto) 9.8 % (0.0-12.0) Eosinophils (%) (Auto) 3.4 % (0.0-7.0) Basophils (%) (Auto) 0.2 % (0.0-2.0) Neutrophils # (Auto) 8.2 10 ^3/uL (1.6-8.6) Lymphocytes # (Auto) 1.8 10 ^3/uL (0.4-5.4) Monocytes # (Auto) 1.1 10 ^3/uL (0-1.3) Eosinophils # (Auto) 0.4 10 ^3/uL (0-0.8) Basophils # (Auto) 0 10 ^3/uL (0-0.2) Nucleated Red Blood Cells 0.0 % Sodium Level 131 mmol/L (136-145) Potassium Level 3.1 mmol/L (3.5-5.1) Chloride Level 89 mmol/L (98-107) Carbon Dioxide Level 32 mmol/L (20-31) Anion Gap 10 (5-15) Blood Urea Nitrogen 52 mg/dL (9-23) Creatinine 5.20 mg/dL (0.550-1.02) Glomerular Filtration Rate Calc 10 mL/min (>90) BUN/Creatinine Ratio 10.0 (10.0-20.0) Serum Glucose 148 mg/dL (74-106) Calcium Level 7.5 mg/dL (8.7-10.4) Urine Color Light-yellow (Yellow) Urine Clarity Clear (Clear) Urine pH 7.0 (5.0-9.0) Urine Specific [place] 1.013 (1.001-1.035) Urine Protein 3+ (Negative) Urine Ketones Negative (Negative) Urine Blood Trace /uL (Negative) Urine Nitrite Negative (Negative) Urine Bilirubin Negative (Negative) Urine Urobilinogen Normal mg/dL (Negative) Urine Leukocyte Esterase Negative /uL (Negative) Urine RBC <1 /hpf (0 - 4) Urine Microscopic WBC 3 /HPF (0-5) Urine Squamous Epithelial Cells Few /hpf (<5) Urine Bacteria Few /hpf (None Seen) Urine Glucose 3+ mg/dL (Normal) Blood Gas Specimen Type Arterial Blood Gas Sample Site Right radial Blood Gas Patient Temperature 37.0 Arterial Blood Date Drawn [id number] Arterial Blood pH 7.520 (7.350-7.450) Arterial Blood Partial Pressure CO2 40.5 mmHg (32.0-45.0) Arterial Blood Partial Pressure O2 79.3 mmHg (83.0-108.0) Arterial Blood HCO3 32.3 mmol/L (21.0-28.0) Arterial Blood Oxygen Saturation 94.7 % (94.0-98.0) Arterial Blood Base Excess 8.7 mmol/L (-2.0-3.0) Arterial Blood Oxyhemoglobin 94.4 % (94.0-98.0) Arterial Blood Carboxyhemoglobin 0.0 % (0.5-1.5) Arterial Blood Methemoglobin 0.3 % (0.0-1.5) Davey Test Yes Blood Gas Total Hemoglobin 10.90 g/dL (12.0-16.0) Blood Gas Modality Room air FiO2 % 21.0 Test 01/15/25 08:41 01/15/25 08:30 01/15/25 04:47 01/14/25 17:41 Free Thyroxine (T4) Calculated 2.46 ng/dL (0.89-1.76) Free Triiodothyronine (T3) pg/mL 2.91 pg/mL (2.3-4.2) Hemoglobin A1c 6.1 % A1C (<5.7) Magnesium Level 2.1 mg/dL (1.6-2.6) Thyroid Stimulating Hormone (TSH) 0.21 uIU/mL (0.55-4.78) Troponin I High Sensitivity 10 ng/L (</=34) Test 01/14/25 15:33 Lactic Acid Level 1.8 mmol/L (0.4-2.0) Total Bilirubin 0.8 mg/dL (0.2-1.0) Aspartate Amino Transferase (AST) 11 U/L (13-40) Alanine Aminotransferase (ALT) 13 U/L (7-40) Alkaline Phosphatase 53 U/L (46-116) B-Type Natriuretic Peptide 14.77 pg/mL (0-100) Total Protein 6.4 g/dL (5.7-8.2) Albumin 3.9 g/dL (3.2-4.8) Lipase 65 U/L (12-53) Beta HCG, Quantitative 0.9 mIU/mL (1.5-4.2) Other Laboratory Tests 01/16/25 05:24 Brief Hx & Hospital Course: This is a 44-year-old female with past medical history of hypertension, chronic kidney disease, type 2 diabetes mellitus presented to the ED with a chief complaint of epigastric pain, nausea and vomiting for 1 day prior to this admission. Patient states that 1 day ago she was discharged from [place] and was admitted for the same complaint with epigastric pain nausea and vomiting and was treated conservatively. she denied chills, fever, loss of weight, altered bowel habit, hematuria, hematemesis, chest pain, shortness of breath, blurred vision, or any change in bowel and bladder habit. Hospital course: CT abdomen pelvis without contrast demonstrated punctate calculus right kidney no hydronephrosis, 7 cm right adnexal mass and Ultrasound of the pelvis demonstrated right ovarian mass 8.1 x 4.7 x 7.7 cm with internal echogenic component possibly due to calcification. Lipase was 65 and patient was treated with IV bolus normal saline, IV ceftriaxone 1 g daily and IV doxycycline 100 mg b.i.d. chimney repairer consulted and recommended MRI of the abdomen and CA 125 for further evaluation and management of right pelvic mass. was on board for acute kidney injury likely ATN on chronic kidney disease stage IIIB and recommended IV normal saline, IV Bumex 3 mg once and discontinued Jardiance and also mentioned no need for WRINGER AND SETTER at this point. Patient is being transferred to [facility] for further evaluation and management of right pelvic mass. Physical examination: General Appearance: Alert, Oriented X3, Cooperative, No acute distress HEENT: Atraumatic, PERRLA, EOMI, Mucous membrane moist/pink Respiratory: Clear to auscultation, Normal air movement Cardiovascular: Regular rate, Normal S1, Normal S2, No murmurs, no chest wall tenderness Abdominal: Normal bowel sounds, Soft, mild tenderness, No hepatospenomegaly, No masses Extremities: No clubbing, No cyanosis, No edema, Normal pulses, No tenderness/swelling Skin: No rashes, No breakdown, No significant lesion Neuro: Normal gait, Normal speech, Strength at 5/5 X4 ext, Normal tone, Sensation intact, grossly intact cranial nerves. Psych/Mental Status: Mental status NL, Mood NL Consults/Reason for consult Nephrology and OBGYN were consulted Operations or Procedures ADDENDUM # 1 Impression: 1. Should read: No CT findings to suggest abnormal dilatation of small bowel or colon. ORIGINAL REPORT Exam: CT CT AB PEL WO CON-NO ORAL OR IV History: upper abd pain n/v Comparison Study: None available at time of dictation. TECHNIQUE: Multidetector CT of the abdomen was performed from lung bases to pubic symphysis. Imaging was performed without IV contrast. Axial, coronal and sagittal multiplanar reformats were obtained from the axial data set by the technologist. Radiation Dose Information: CT Dose: CTDI volume is 7.54 mGy. Dose-length product is 394.66 mGy*cm FINDINGS: Evaluation of solid organs is limited due to lack of intravenous contrast use. Findings: Lung Bases: No acute or significant lung base finding. Normal heart size. No pleural or pericardial effusion. Liver: The liver is normal in size. No focal lesions. Gallbladder and Biliary Tree: Unremarkable Spleen: Unremarkable Pancreas: The pancreas is grossly normal in appearance. Adrenal Glands: Unremarkable Kidneys: Punctate calculus right kidney no hydronephrosis Bladder: Grossly unremarkable for degree of distention. Bowel: The stomach is grossly normal in appearance. Small bowel and colon are normal in caliber and distribution. The appendix is not visualized; however, no secondary findings of acute appendicitis identified. Ascites: Absent Lymphadenopathy: No mesenteric, retroperitoneal or periportal lymphadenopathy. Abdominal Wall and Mesentery: Unremarkable. Vasculature: The visualized abdominal aorta is normal in size and caliber. Evaluation of abdominal and pelvic vessels is limited due to lack of intravenous contrast. Pelvic Organs: Prominent 4.5 cm left adnexal mass. Consider pelvic ultrasound for further evaluation. Musculoskeletal: No aggressive focal bony lesions, acute fractures or dislocation. Soft tissues: Unremarkable IMPRESSION: 1. Punctate calculus right kidney no hydronephrosis 2. 7 cm right adnexal mass consider pelvic ultrasound for further evaluation. 3. No calcified gallstones 4. CT findings to suggest abnormal dilatation of the small bowel or colon., CLINICAL HISTORY: Right adnexal mass. COMPARISON: Correlation made to CT of the abdomen and pelvis dated 01/14/2025 TECHNIQUE: Transvaginal grayscale sonographic imaging of the uterus and ovaries was performed, assisted by color Doppler technique. Duplex Doppler ultrasound of both ovaries was also performed. FINDINGS: The uterus measures 6.4 x 3.5 x 3.5 cm. There is heterogeneous echogenicity. Endometrial thickness measures 0.4 cm, within normal limits. Right ovary measures 2.6 x 2.5 x 2.6 cm. Arterial and venous blood flow demonstrated. Right adnexal complex hypoechoic mass measures 8.1 x 4.7 x 7.7 cm with internal echogenic component, possibly due to calcification, although not correlated on recent CT exam. Some vascular flow along the periphery of the mass involving the echogenic area. Left ovary measures 5.1 x 1.7 x 2.9 cm. Arterial and venous blood flow demonstrated. Dominant follicle/ simple cyst in the left ovary measures 1.1 cm. IMPRESSION: 1. Right ovarian mass as described above. Differential considerations include a complex cystic mass, including hemorrhagic cyst or neoplasm. Recommend pelvic MRI without and with contrast to further evaluate. 2. Additional findings as described above Condition at Discharge: Guarded Final Diagnosis/Problems List # Intractable abdominal pain likely due to PID # Possible ovarian mass # Possible tubo-ovarian abscess # Leukocytosis likely due to above # Right renal calculus without hydronephrosis # Ruled out pancreatitis # Metabolic alkalosis with respiratory compensation likely due to intractable vomiting # KATE on CKD likely hemodynamically mediated /VMN # Possible subclinical hyperthyroidism # Hypokalemia # Type 2 diabetes mellitus, hemoglobin A1c 6.1 # Hypertensive heart disease Discharge Disposition: Acute Care Facility Discharge Instruct/Medications Diet: Renal Activity: No Restrictions, As Tolerated Follow Up/Referral: Follow up with PCP in 1 week. Discharge Statement: "Patient was advised to return to the ER or call 911 if any headaches, dizziness, shortness of breath, chest pain, abdominal pain, bleeding, fevers, or worsening of medical condition. Patient was counseled about treatment plan, medications, possible side effects, patientverbalized understanding. All questions were answered to the best of my ability. This discharge took greater then 30 minutes in planning, reviewing documentation, counseling the patient, and discussing with other team members." ASSESSMENT ASSESSMENT Assessment # Intractable abdominal pain likely due to PID # Possible ovarian mass # Possible tubo-ovarian abscess # Leukocytosis likely due to above # Right renal calculus without hydronephrosis # Ruled out pancreatitis # Metabolic alkalosis with respiratory compensation likely due to intractable vomiting # KATE on CKD likely hemodynamically mediated /VMN # Possible subclinical hyperthyroidism # Hypokalemia # Type 2 diabetes mellitus, hemoglobin A1c 6.1 # Hypertensive heart disease Date of Service: Jan 16, 2025 Billing Provider: ADRIANNA GLYNN MD Common Visit Codes: 53300-RKL/OBS DISCH DAY >30min JOSE ENRIQUE SANTANA RESIDENT Jan 16, 2025 18:44 ADRIANNA GLYNN MD Jan 17, 2025 20:55
[2025-01-17] VITALS (9 sets, daily range): BP systolic 110–143; BP diastolic 52–79; PULSE 79–90; RESP 15–18; TEMP 97.8–98.6; O2SAT 97–99
[2025-01-17 11:07] LABS: Carbohydrate Antigen 19-9 72 U/mL (0-35)
--- NOTE | 2025-01-17 12:30 | DVHPN2 ---
Progress Note - Dictate Date Seen: Jan 17, 2025 Medical Necessity Reason Pt with a Central, PICC or Fol: No Subjective No new complaints vital signs Vital Sign Date Time Temp Pulse Resp B/P (MAP) Pulse Ox O2 Delivery O2 Flow Rate FiO2 01/17/25 09:55 85 143/79 01/17/25 09:09 97.8 18 99 97.8 01/17/25 08:00 Room Air* 0 21 Total Intake and Output 01/16/25 01/16/25 01/17/25 15:00 23:00 07:00 Intake Total 50 ml 2358 ml 200 ml Balance 50 ml 2358 ml 200 ml medications Current Medications Medications Dose Ordered Sig/Eileen Route Start Time Stop Time Status Last Admin Dose Admin Amlodipine Besylate 10 mg DAILY PO 01/15/25 10:00 01/17/25 08:54 10 MG Carvedilol 12.5 mg Q12HR PO 01/14/25 22:00 01/17/25 08:55 12.5 MG Atorvastatin Calcium 20 mg HS PO 01/14/25 22:00 01/16/25 21:33 20 MG Ceftriaxone Sodium 50 ml @ 100 mls/hr DAILY@09 IV 01/15/25 09:00 01/17/25 08:52 100 MLS/HR Diagnostic Test (Pha) 1 strip ACHS 01/14/25 22:00 01/17/25 11:54 1 STRIP Insulin Human Regular ACHS SC 01/14/25 22:00 01/17/25 11:57 3 UNITS Dextrose 50 ml UD PRN IV 01/14/25 19:15 Ondansetron HCl 4 mg Q4HP PRN IV 01/14/25 19:15 Acetaminophen 650 mg Q6HP PRN PO 01/14/25 19:15 Pantoprazole Sodium 40 mg DAILY@0600 PO 01/15/25 06:00 01/17/25 05:51 40 MG Doxycycline Monohydrate 100 mg Q12HR PO 01/15/25 10:00 01/17/25 08:54 100 MG Heparin Sodium (Porcine) 5,000 units Q12HR SC 01/15/25 22:00 01/17/25 08:59 5,000 UNITS Sodium Chloride 1,000 ml @ 100 mls/hr Q10H IV 01/15/25 18:15 01/17/25 05:52 100 MLS/HR objective Gen: In no acute distress Skin: Warm, dry, normal color and texture, no rash. HEENT: Normocephalic atraumatic, mucous membranes moist and pink. Neck: Cervical and supraclavicular nodes normal without enlargement, trachea is midline, thyroid gland is normal without masses. Pulmonary: Clear to auscultation and percussion bilaterally. Cardiac: Regular rate and rhythm. No murmur Abdomen: Soft, nontender, nondistended, bowel sounds present all 4 quadrants, no guarding, no rigidity, no organomegaly. Extremities: No cyanosis, clubbing, no edema Neuro: Cranial nerves II through XII grossly intact, normal affect and speech, no focal motor deficits. laboratory and microbiology Laboratory Tests 01/16/25 05:24 Test 01/16/25 05:24 Range/Units Serum Glucose 148 H 74-106 mg/dL Problem List Acute kidney injury, likely ATN, urine output not being quantified Chronic kidney disease stage IIIB Persistent nausea and vomiting Right adnexal mass which is being worked up Type 2 diabetes with nephropathy Hypertension Obesity Hypokalemia Ovarian mass, patient is going to be transferred to [facility] Plan/Recommendation IVF with NS drip Loop diuretic as needed to maintain urine output Hold off on Jardiance. Patient also has discontinued her Ozempic. Last dose was about three weeks ago. Discontinue sodium bicarbonate. Strict I's and O's. Daily BMP No need for DIETARY SERVICES MANAGER at this point Plan discussed with: Patient PATTI KLEIN MD Jan 17, 2025 12:30
--- NOTE | 2025-01-17 15:17 | DVHPNRES ---
Progress Note Date Seen: Jan 17, 2025 Resident Creating Document: JOSE ENRIQUE SANTANA RESIDENT Medical Necessity Reason Pt with a Central, PICC or Fol: No Subjective Review of Systems Patient was seen and examined on the bedside. She is alert, oriented x3. Mentioned feeling better and the patient is waiting for transfer to [facility] for evaluation and management of right pelvic mass. Objective vital signs Vital Sign Date Time Temp Pulse Resp B/P (MAP) Pulse Ox O2 Delivery O2 Flow Rate FiO2 01/17/25 13:09 98.2 82 18 143/79 (100) 99 98.2 01/17/25 08:00 Room Air* 0 21 Total Intake and Output 01/16/25 01/16/25 01/17/25 15:00 23:00 07:00 Intake Total 50 ml 2358 ml 200 ml Balance 50 ml 2358 ml 200 ml medications Current Medications Medications Dose Ordered Sig/Eileen Route Start Time Stop Time Status Last Admin Dose Admin Amlodipine Besylate 10 mg DAILY PO 01/15/25 10:00 01/17/25 08:54 10 MG Carvedilol 12.5 mg Q12HR PO 01/14/25 22:00 01/17/25 08:55 12.5 MG Atorvastatin Calcium 20 mg HS PO 01/14/25 22:00 01/16/25 21:33 20 MG Ceftriaxone Sodium 50 ml @ 100 mls/hr DAILY@09 IV 01/15/25 09:00 01/17/25 08:52 100 MLS/HR Diagnostic Test (Pha) 1 strip ACHS 01/14/25 22:00 01/17/25 11:54 1 STRIP Insulin Human Regular ACHS SC 01/14/25 22:00 01/17/25 11:57 3 UNITS Dextrose 50 ml UD PRN IV 01/14/25 19:15 Ondansetron HCl 4 mg Q4HP PRN IV 01/14/25 19:15 Acetaminophen 650 mg Q6HP PRN PO 01/14/25 19:15 Pantoprazole Sodium 40 mg DAILY@0600 PO 01/15/25 06:00 01/17/25 05:51 40 MG Doxycycline Monohydrate 100 mg Q12HR PO 01/15/25 10:00 01/17/25 08:54 100 MG Heparin Sodium (Porcine) 5,000 units Q12HR SC 01/15/25 22:00 01/17/25 08:59 5,000 UNITS Sodium Chloride 1,000 ml @ 100 mls/hr Q10H IV 01/15/25 18:15 01/17/25 05:52 100 MLS/HR Examination Physical examination: General Appearance: Alert, Oriented X3, Cooperative, No acute distress HEENT: Atraumatic, PERRLA, EOMI, Mucous membrane moist/pink Respiratory: Clear to auscultation, Normal air movement Cardiovascular: Regular rate, Normal S1, Normal S2, No murmurs, no chest wall tenderness Abdominal: Normal bowel sounds, Soft, No tenderness, No hepatospenomegaly, No masses Extremities: No clubbing, No cyanosis, No edema, Normal pulses, No tenderness/swelling Skin: No rashes, No breakdown, No significant lesion Neuro: Normal gait, Normal speech, Strength at 5/5 X4 ext, Normal tone, Sensation intact, grossly intact cranial nerves. Psych/Mental Status: Mental status NL, Mood NL laboratory and microbiology Laboratory Tests 01/16/25 05:24 Test 01/16/25 05:24 Range/Units Serum Glucose 148 H 74-106 mg/dL Microbiology Date/Time Source Procedure Growth Status 01/15/25 17:45 Nose MRSA Screen - Final Complete 01/14/25 19:50 Blood Blood Culture - Preliminary NO GROWTH AFTER 48 HOURS OF INCUBATION. Resulted Labs and/or images reviewed: Labs reviewed by me, Image(s) reviewed by me Problem List/Assessment/Plan Problem List/Assessment/Plan Assessment and plan: # Intractable abdominal pain likely due to PID # Possible ovarian mass # Possible tubo-ovarian abscess # Leukocytosis likely due to above # Right renal calculus without hydronephrosis # Ruled out pancreatitis - CT abdomen pelvis without contrast demonstrated punctate calculus right kidney no hydronephrosis, 7 cm right adnexal mass. - Ultrasound of the pelvis demonstrated right ovarian mass 8.1 x 4.7 x 7.7 cm with internal echogenic component possibly due to calcification - CA 125 and CA 19-9 are elevated - Lipase is 65 - 2 L IV bolus normal saline given - IV ceftriaxone 1 g daily and IV doxycycline 100 mg b.i.d. - IV ondansetron 4 mg q.4 PRN. - U/A revealed normal study - OBGYN recommended MRI of the abdomen - Patient is waiting for transfer to [facility] for further evaluation and management of right pelvic mass. # Metabolic alkalosis with respiratory compensation likely due to intractable vomiting # KATE on CKD likely hemodynamically mediated /VMN - BUN/creatinine, 52/5.2 - Nephrology on board and recommended IV fluid, no need of ALLIANCE MANAGER at this time. # Possible subclinical hyperthyroidism - TSH is low - T4 high and T3 is normal # Hypokalemia - Replenished # Type 2 diabetes mellitus, hemoglobin A1c 6.1 - Mild sliding scale of insulin and Jardiance 10 mg po daily # Hypertensive heart disease - Amlodipine 10 mg daily and carvedilol 12.5 mg b.i.d. - Atorvastatin 20 mg at HS # PUD prophylaxis - Protonix 40 mg p.o. daily # DVT prophylaxis - Heparin 5000 units sc b.i.d. Goal of care discussed with the patient for more than 20 minutes full code Plan discussed with Dr. Elizondo Plan discussed with: Patient, Other My Orders My Orders Orders - JOSE ENRIQUE SANTANA Procedure Category Date Status Time Discharge DISCHARGE 01/16/25 Transmitted 17:14 Date of Service: Jan 17, 2025 Billing Provider: ADRIANNA ELIZONDO MD Common Visit Codes: [id number] INP/OBS CARE(MOD) JOSE ENRIQUE SANTANA Jan 17, 2025 15:17 ADRIANNA ELIZONDO MD Jan 17, 2025 21:45
[2025-01-18 01:00] VITALS: BP 112/66; PULSE 82; RESP 18; TEMP 98.1; O2SAT 96
[2025-01-18 05:00] VITALS: BP 111/62; PULSE 82; RESP 18; TEMP 98.5; O2SAT 96
[2025-01-18 08:00] VITALS: PULSE 86; RESP 18; O2SAT 100
[2025-01-18 08:41] VITALS: BP 137/73; PULSE 82; RESP 18; TEMP 98.6; O2SAT 100
--- NOTE | 2025-01-18 11:33 | DVHPN2 ---
Progress Note - Dictate Date Seen: Jan 18, 2025 Medical Necessity Reason Pt with a Central, PICC or Fol: No Subjective No new complaints vital signs Vital Sign Date Time Temp Pulse Resp B/P (MAP) Pulse Ox O2 Delivery O2 Flow Rate FiO2 01/18/25 10:01 86 124/67 01/18/25 08:41 98.6 18 100 98.6 01/18/25 08:00 Room Air* 0 21 Total Intake and Output 01/17/25 01/17/25 01/18/25 15:00 23:00 07:00 Intake Total 730 ml 1886 ml 1600 ml Output Total 1700 ml 1900 ml Balance 730 ml 186 ml -300 ml medications Current Medications Medications Dose Ordered Sig/Eileen Route Start Time Stop Time Status Last Admin Dose Admin Amlodipine Besylate 10 mg DAILY PO 01/15/25 10:00 01/18/25 09:02 10 MG Carvedilol 12.5 mg Q12HR PO 01/14/25 22:00 01/18/25 09:01 12.5 MG Atorvastatin Calcium 20 mg HS PO 01/14/25 22:00 01/17/25 21:35 20 MG Ceftriaxone Sodium 50 ml @ 100 mls/hr DAILY@09 IV 01/15/25 09:00 01/18/25 08:58 100 MLS/HR Diagnostic Test (Pha) 1 strip ACHS 01/14/25 22:00 01/18/25 05:46 1 STRIP Insulin Human Regular ACHS SC 01/14/25 22:00 01/17/25 21:44 3 UNITS Dextrose 50 ml UD PRN IV 01/14/25 19:15 Ondansetron HCl 4 mg Q4HP PRN IV 01/14/25 19:15 Acetaminophen 650 mg Q6HP PRN PO 01/14/25 19:15 Pantoprazole Sodium 40 mg DAILY@0600 PO 01/15/25 06:00 01/18/25 05:45 40 MG Doxycycline Monohydrate 100 mg Q12HR PO 01/15/25 10:00 01/18/25 09:01 100 MG Heparin Sodium (Porcine) 5,000 units Q12HR SC 01/15/25 22:00 01/18/25 09:06 5,000 UNITS Sodium Chloride 1,000 ml @ 100 mls/hr Q10H IV 01/15/25 18:15 01/18/25 05:11 100 MLS/HR objective Gen: In no acute distress Skin: Warm, dry, normal color and texture, no rash. HEENT: Normocephalic atraumatic, mucous membranes moist and pink. Neck: Cervical and supraclavicular nodes normal without enlargement, trachea is midline, thyroid gland is normal without masses. Pulmonary: Clear to auscultation and percussion bilaterally. Cardiac: Regular rate and rhythm. No murmur Abdomen: Soft, nontender, nondistended, bowel sounds present all 4 quadrants, no guarding, no rigidity, no organomegaly. Extremities: No cyanosis, clubbing, no edema Neuro: Cranial nerves II through XII grossly intact, normal affect and speech, no focal motor deficits. laboratory and microbiology Laboratory Tests 01/16/25 05:24 Test 01/16/25 05:24 Range/Units Serum Glucose 148 H 74-106 mg/dL Problem List Acute kidney injury, likely ATN, improved urine output in response to large dose IV loop diuretic No labs today, will order BMP Chronic kidney disease stage IIIB Persistent nausea and vomiting Right adnexal mass suspicious for overian Ca Type 2 diabetes with nephropathy Hypertension Hypokalemia Plan/Recommendation Check BMP daily IVF NS drip Loop diuretic as needed to maintain urine output Hold off on Jardiance. Strict I's and O's. No need for TANK CAR MECHANIC at this point Plan discussed with: Patient PATTI KLEIN MD Jan 18, 2025 11:33
[2025-01-18 11:39] VITALS: BP 124/67; PULSE 86; RESP 18; TEMP 98.2; O2SAT 100
[2025-01-18 12:25] VITALS: BP 120/74; PULSE 82; RESP 18; TEMP 98.4; O2SAT 100
[2025-01-18 12:57] LABS: Potassium 3.8 mmol/L (3.5-5.1)
[2025-01-18 12:58] LABS: Anion Gap 8 (5-15); Carbon Dioxide 24 mmol/L (20-31)
[2025-01-18 13:03] LABS: BUN/Creatinine Ratio 9.6 (10.0-20.0)
[2025-01-18 13:10] LABS: Blood Urea Nitrogen 38 mg/dL (9-23); Calcium 7.7 mg/dL (8.7-10.4); Chloride 97 mmol/L (98-107); Glucose 216 mg/dL (74-106); Sodium 129 mmol/L (136-145)
[2025-01-18 14:07] LABS: CA 27.29 16.1 U/mL (0.0-38.6)
--- NOTE | 2025-01-18 19:59 | DVHPNRES ---
Progress Note Date Seen: Jan 18, 2025 Resident Creating Document: JOSE ENRIQUE SANTANA RESIDENT Medical Necessity Reason Pt with a Central, PICC or Fol: No Subjective Review of Systems Patient was seen and examined on the bedside. She is alert, oriented x3. Mentioned feeling better and the patient is transferred to [facility] for evaluation and management of right pelvic mass. Objective vital signs Vital Sign Date Time Temp Pulse Resp B/P (MAP) Pulse Ox O2 Delivery O2 Flow Rate FiO2 01/18/25 12: 98.4 82 18 120/74 (89) 100 98.4 01/18/25 08:00 Room Air* 0 21 Total Intake and Output 01/17/25 01/17/25 01/18/25 15:00 23:00 07:00 Intake Total 730 ml 1886 ml 1600 ml Output Total 1700 ml 1900 ml Balance 730 ml 186 ml -300 ml Examination Physical examination: General Appearance: Alert, Oriented X3, Cooperative, No acute distress HEENT: Atraumatic, PERRLA, EOMI, Mucous membrane moist/pink Respiratory: Clear to auscultation, Normal air movement Cardiovascular: Regular rate, Normal S1, Normal S2, No murmurs, no chest wall tenderness Abdominal: Normal bowel sounds, Soft, No tenderness, No hepatospenomegaly, No masses Extremities: No clubbing, No cyanosis, No edema, Normal pulses, No tenderness/swelling Skin: No rashes, No breakdown, No significant lesion Neuro: Normal gait, Normal speech, Strength at 5/5 X4 ext, Normal tone, Sensation intact, grossly intact cranial nerves. Psych/Mental Status: Mental status NL, Mood NL laboratory and microbiology Laboratory Tests 01/18/25 12:01 01/16/25 05:24 Test 01/18/25 12:01 Range/Units Serum Glucose 216 H 74-106 mg/dL Microbiology Date/Time Source Procedure Growth Status 01/15/25 17:45 Nose MRSA Screen - Final Complete 01/14/25 19:50 Blood Blood Culture - Preliminary NO GROWTH AFTER 72 HOURS OF INCUBATION. Resulted Labs and/or images reviewed: Labs reviewed by me, Image(s) reviewed by me Problem List/Assessment/Plan Problem List/Assessment/Plan Assessment and plan: # Intractable abdominal pain likely due to PID # Possible ovarian mass # Possible tubo-ovarian abscess # Leukocytosis likely due to above # Right renal calculus without hydronephrosis # Ruled out pancreatitis - CT abdomen pelvis without contrast demonstrated punctate calculus right kidney no hydronephrosis, 7 cm right adnexal mass. - Ultrasound of the pelvis demonstrated right ovarian mass 8.1 x 4.7 x 7.7 cm with internal echogenic component possibly due to calcification - CA 125 and CA 19-9 are elevated - Lipase is 65 - 2 L IV bolus normal saline given - IV ceftriaxone 1 g daily and IV doxycycline 100 mg b.i.d. - IV ondansetron 4 mg q.4 PRN. - U/A revealed normal study - OBGYN recommended MRI of the abdomen - Patient is waiting for transfer to [facility] for further evaluation and management of right pelvic mass. # Metabolic alkalosis with respiratory compensation likely due to intractable vomiting # KATE on CKD likely hemodynamically mediated /VMN - BUN/creatinine, 52/5.2 - Nephrology on board and recommended IV fluid, no need of SECURITY SPECIALIST at this time. # Possible subclinical hyperthyroidism - TSH is low - T4 high and T3 is normal # Hypokalemia - Replenished # Type 2 diabetes mellitus, hemoglobin A1c 6.1 - Mild sliding scale of insulin and Jardiance 10 mg po daily # Hypertensive heart disease - Amlodipine 10 mg daily and carvedilol 12.5 mg b.i.d. - Atorvastatin 20 mg at HS # PUD prophylaxis - Protonix 40 mg p.o. daily # DVT prophylaxis - Heparin 5000 units sc b.i.d. Goal of care discussed with the patient for more than 20 minutes full code Plan discussed with Dr. Elizondo Plan discussed with: Patient, Other Date of Service: Jan 18, 2025 Billing Provider: ADRIANNA ELIZONDO MD Common Visit Codes: [id number] INP/OBS CARE(HIGH) JOSE ENRIQUE SANTANA RESIDENT Jan 18, 2025 19:59 ADRIANNA ELIZONDO MD Jan 18, 2025 21:25
== END 2025-01-18 13:30 | disposition short-term general hospital (02) | DRG 465 ==
LOC: ER 14:28 → EDBD 14:28 → OVERFLOW 19:06 → CENTRAL 01-15 17:17
PROVIDERS: ADMIT Internal Medicine; ATTEND Internal Medicine
DX: N20.0 Calculus of kidney (principal); N17.0 Acute kidney failure with tubular necrosis; E11.21 Type 2 diabetes mellitus with diabetic nephropathy; E05.80 Other thyrotoxicosis without thyrotoxic crisis or storm; E11.22 Type 2 diabetes mellitus with diabetic chronic kidney disease; D72.829 Elevated white blood cell count, unspecified; N73.9 Female pelvic inflammatory disease, unspecified; E11.65 Type 2 diabetes mellitus with hyperglycemia; E66.9 Obesity, unspecified; E87.6 Hypokalemia; N70.93 Salpingitis and oophoritis, unspecified; N18.32 Chronic kidney disease, stage 3b; N83.9 Noninflammatory disorder of ovary, fallopian tube and broad ligament, unspecified; K59.00 Constipation, unspecified; Z83.3 Family history of diabetes mellitus; Z79.82 Long term (current) use of aspirin; Z79.4 Long term (current) use of insulin; Z79.899 Other long term (current) drug therapy; Z98.891 History of uterine scar from previous surgery; I13.10 Hypertensive heart and chronic kidney disease without heart failure, with stage 1 through stage 4 chronic kidney disease, or unspecified chronic kidney disease
CPT/HCPCS: 36415; 36600; 74176; 76856; 80048; 80053; 81001; 82805; 82962; 83036; 83605; 83690; 83735; 83880; 84439; 84443; 84481; 84484; 84702; 85025; 86300; 86301; 86304; 87040; 87081; 93005; 96361; 96374; 96375; G0378; J1815; J2470